=== PATIENT | female | born 1970 | race Caucasian/White ===

== ENCOUNTER 2022-05-16 16:28 | Inpatient (IN) | payer MEDICAID, SELFPAY ==
--- NOTE | ~2022-05-16 | US_ITS ---
EXAMINATION: US ABDOMEN COMPLETE CLINICAL INFORMATION: Cirrhosis. Question ascites.. COMPARISON: None TECHNIQUE: Real-time imaging of the abdominal viscera. Today's examination is limited secondary to overlying bowel gas. FINDINGS: PANCREAS: Visualized portions of the pancreas are normal in appearance. ABDOMINAL AORTA: The proximal portion of the abdominal aorta was not clearly visualized due to overlying bowel gas. The mid, and distal segments are normal in caliber. INFERIOR VENA CAVA: Visualized portions are normal. LIVER: The liver is enlarged. The liver contour is normal. Liver echogenicity is increased diffusely. No focal hepatic lesion. There is no intrahepatic biliary duct dilatation seen. GALLBLADDER: The gallbladder is physiologically distended. Some echogenic bile is noted. No definitive shadowing gallstones identified. No gallbladder wall thickening or pericholecystic fluid appreciated. Negative sonographic Gamble's sign. COMMON BILE DUCT: Normal in caliber measuring 0.4 cm in diameter. RIGHT KIDNEY: Normal. No hydronephrosis. No renal calculi or focal parenchymal lesions. The kidney measures 12.5 cm in maximum dimension. LEFT KIDNEY: Normal. No hydronephrosis. No renal calculi or focal parenchymal lesions. The kidney measures 12.4 cm in maximum dimension. SPLEEN: The spleen measures 13.7 cm in maximum dimension. FREE FLUID: None. US/US abdomen complete IMPRESSION: -Hepatosplenomegaly with diffusely increased echogenicity of the liver suggesting underlying liver disease. Correlation with liver enzymes recommended. -No ascites identified.
--- NOTE | ~2022-05-16 | XR_ITS ---
EXAMINATION: XR CHEST CLINICAL INFORMATION: Cough COMPARISON: None TECHNIQUE: Frontal view of the chest was obtained. FINDINGS: The lungs are clear. No airspace consolidation, pleural effusion, or pneumothorax. Subtle small symmetric nodular densities superimposing the right and left lower lungs are felt compatible with nipple shadows. The cardiomediastinal silhouette is within normal limits. No acute osseous injury. XR/XR chest 1V IMPRESSION: No acute pulmonary process.
[2022-05-16 17:15] VITALS: BP 141/86; PULSE 106; RESP 20; TEMP 37; O2SAT 96; BMI 24.3
--- NOTE | 2022-05-16 18:29 | PC.NURSE ---
Per english teacher pt requesting detox, Ernesto from CARE team speaking with pt in [place] at this time. Dispo pending
--- NOTE | 2022-05-16 18:37 | MHC.RECOVSUP ---
Recovery Support note: Patient is a 51 year old Ethiopian speaking female who presented to [facility] ED seeking detox. This appeals writer met with patient in the waiting room to discuss what to expect regarding medical clearance and detox referrals. Patient reports withdrawal symptoms at this time and states she hasn't eaten in 5 days. Gingerale and crackers provided to patient. Patient reports she has been to detox five times previously, [place] [facility] This appeals writer is available as needed.
[2022-05-16 22:56] VITALS: BP 136/78; PULSE 119; RESP 17; O2SAT 95
[2022-05-17 00:05] VITALS: BP 148/86; PULSE 102; RESP 18; TEMP 36.9; O2SAT 96
[2022-05-17 00:10] LABS: Basophils Percent Auto 0.6 % (0-2); Eosinophils Percent Auto 0.6 % (0-4); Hematocrit 37.3 % (37.0-47.0); Hemoglobin 12.9 g/dl (12.0-16.0); Imm Gran Abs Auto 0.01 X10*3/uL (0.00-0.03); Imm Gran Pct Auto 0.3 % (0.0-0.4); Lymphocytes Absolute Auto 1.2 X10*3/uL (1.2-4.9); Lymphocytes Percent Auto 33.7 % (20-40); Mean Corpuscular HGB Conc 34.6 g/dl (31.0-35.0); Mean Corpuscular Hemoglobin 34.2 pg (27.0-33.0); Mean Corpuscular Volume 98.9 fL (80.0-98.0); Mean Platelet Volume 10.2 fL (9.4-12.3); Monocytes Absolute Auto 0.4 X10*3/uL (0.1-1.2); Monocytes Percent Auto 10.6 % (2-11); Neutrophils Percent Auto 54.2 % (45-73); Platelet Count 52 X10*3/uL (160-400); Red Blood Count 3.77 X10*6/uL (4.20-5.50); Red Cell Distribution Width 12.4 % (11.0-16.0); White Blood Count 3.6 X10*3/uL (4.8-10.8)
[2022-05-17 00:11] LABS: MANUAL DIFF FLAG SCAN
[2022-05-17 00:16] LABS: INTERNATIONAL NORM RATIO 1.2 (0.9-1.1); Prothrombin Time 13.9 SEC (10.0-13.1)
[2022-05-17 00:27] LABS: Ethanol 60 mg/dL; SLIDE REVIEW VERIFIED
[2022-05-17 00:35] LABS: Alanine Aminotransferase 71 U/L (0-31); Albumin Level 4.6 g/dL (3.5-5.0); Alkaline Phosphatase 212 U/L (39-117); Anion Gap 25 (12-20); Aspartate Amino Transferase 214 U/L (5-31); Bilirubin Total 2.8 mg/dL (0.0-1.0); Blood Urea Nitrogen 6 mg/dL (9-16); Calcium 9.3 mg/dL (8.4-10.2); Carbon Dioxide 20 mmol/L (22-29); Chloride 94 mmol/L (96-108); Creatinine Clr Calc Pharmacy 113.1; Estimated Glomerular Filt Rate > 60; Glucose Random 101 mg/dL (60-115); Lipase 44 U/L (8-78); Potassium 3.7 mmol/L (3.3-5.1); Sodium 135 mmol/L (135-145); Total Protein 8.1 g/dL (6.5-8.0)
[2022-05-17] MEDS: 0.9 % Sodium Chloride 2,000 ML 999 ML IV (00:35)
--- NOTE | 2022-05-17 00:45 | ECG_ITS ---
Test Reason : ETOH WITHDRAWAL Blood Pressure : / mmHG Vent. Rate : 097 BPM Atrial Rate : 097 BPM P-R Int : 144 ms QRS Dur : 080 ms QT Int : 378 ms P-R-T Axes : 008 -23 -08 degrees QTc Int : 480 ms Normal sinus rhythm Septal infarct , age undetermined Abnormal ECG No previous ECGs available Referred By: Jennifer Narvaez Electronically Signed By:RONNA GARCIA
--- NOTE | 2022-05-17 01:20 | ED_ITS ---
HPI - Alcohol General Chief Complaint: ETOH/Substance Use Stated Complaint: Crisis Time Seen by Provider: 05/16/22 22:46 Source: patient Mode of arrival: ambulatory History of Present Illness HPI narrative: 51f with hx etoh dependence and p/w with request for etoh detox. Pt reports last alcoholic beverage was this morning and that she has had 5 days without much to eat and having non-bloody diarrhea. Otherwise, she denies SI/HI/SOB/chest pain,fevers, chills. Related Data Allergies Allergy/AdvReac Type Severity Reaction Status Date / Time Unable to Assess Allergy Verified 05/16/22 23:37 Review of Systems Review of Systems: Pertinent positives and negatives as per HPI and 10 pt ROS is otherwise negative. [facility] Past Medical History Source: nursing notes reviewed Medical History Alcohol abuse Anxiety Depression Hypertension Social History Social History Alcohol intake: current Alcohol intake frequency: 3 or more drinks per day Alcohol type: wine and hard liquor Patient Tobacco Use Status: Never used Tobacco Use of substances other than those prescribed or required for medical reasons: No Advance Directives: No Advance Directives Information Provided: No Physical Exam ED Vital Signs: Vital Signs - 24 hr 05/16/22 17:15 05/16/22 22:56 05/17/22 00:05 Temperature 98.6 F 98.4 F Pulse Rate 106 H 119 H 102 H Respiratory Rate 20 17 18 Blood Pressure 141/86 H 136/78 148/86 H Pulse Oximetry 96 95 96 Oxygen Delivery Method Room Air Room Air Room Air BMI result Body Mass Index 24.3 VS reviewed GEN: chronically ill, and appears older than age HEAD: NC/AT Neck: Supple PULM: CTAB, no w/r/r CVS: No JVD, S1S2, no murmur ABD: soft, non-tender, non-distended EXT: no deformities, fROM SKIN: warm, dry Neuro: A&O x4, strength 5/5 symmetrical, tremulous Course Course Course Narrative: 51F with history and clinical presentation c/w etoh withdrawal as well as etoh gastritis. Patient rec'd IVF, Zofran, placed on Phenobarb protocol, and all investigations reviewed and noted to be consistent with alcoholic liver. No clinical evidence to suggest gallbladder disease or cholecystitis. MDM - Alcohol Lab Data Result diagrams: 05/16/22 23:58 05/16/22 23:58 Labs: Lab Results 05/16/22 05/16/22 05/16/22 Range/Units 23:58 23:58 23:58 WBC 3.6 L (4.8-10.8) X10*3/uL RBC 3.77 L (4.20-5.50) X10*6/uL Hgb 12.9 (12.0-16.0) g/dl Hct 37.3 (37.0-47.0) % MCV 98.9 H (80.0-98.0) fL MCH 34.2 H (27.0-33.0) pg MCHC 34.6 (31.0-35.0) g/dl RDW 12.4 (11.0-16.0) % Plt Count 52 L (160-400) X10*3/uL MPV 10.2 (9.4-12.3) fL Immature Gran % (Auto) 0.3 (0.0-0.4) % Neut % (Auto) 54.2 (45-73) % Lymph % (Auto) 33.7 (20-40) % Freestone % (Auto) 10.6 (2-11) % Eos % (Auto) 0.6 (0-4) % Baso % (Auto) 0.6 (0-2) % Lymph # (Auto) 1.2 (1.2-4.9) X10*3/uL Freestone # (Auto) 0.4 (0.1-1.2) X10*3/uL Eos # (Auto) 0.0 (0.0-0.4) X10*3/uL Baso # (Auto) 0.0 (0.0-0.2) X10*3/uL Abs Immat Gran (auto) 0.01 (0.00-0.03) X10*3/uL Absolute Neuts (auto) 2.0 (2.0-8.3) x10*3/uL Absolute Nucleated RBC 0.000 (0.0-0.012) X10*3/uL Nucleated RBC % (auto) 0.0 (0.0-0.2) /100WBC Smear Tech's Comments VERIFIED PT 13.9 H (10.0-13.1) SEC INR 1.2 H (0.9-1.1) Sodium 135 (135-145) mmol/L Potassium 3.7 (3.3-5.1) mmol/L Chloride 94 L (96-108) mmol/L Carbon Dioxide 20 L (22-29) mmol/L Anion Gap 25 H (12-20) BUN 6 L (9-16) mg/dL Creatinine 0.60 (0.5-1.4) mg/dL Estim Creat Clear Calc 113.1 Estimated GFR > 60 Random Glucose 101 (60-115) mg/dL Calcium 9.3 (8.4-10.2) mg/dL Total Bilirubin 2.8 H (0.0-1.0) mg/dL AST 214 H (5-31) U/L ALT 71 H (0-31) U/L Alkaline Phosphatase 212 H (39-117) U/L Total Protein 8.1 H (6.5-8.0) g/dL Albumin 4.6 (3.5-5.0) g/dL Lipase 44 (8-78) U/L Ethyl Alcohol mg/dL 05/16/22 Range/Units 23:58 WBC (4.8-10.8) X10*3/uL RBC (4.20-5.50) X10*6/uL Hgb (12.0-16.0) g/dl Hct (37.0-47.0) % MCV (80.0-98.0) fL MCH (27.0-33.0) pg MCHC (31.0-35.0) g/dl RDW (11.0-16.0) % Plt Count (160-400) X10*3/uL MPV (9.4-12.3) fL Immature Gran % (Auto) (0.0-0.4) % Neut % (Auto) (45-73) % Lymph % (Auto) (20-40) % Freestone % (Auto) (2-11) % Eos % (Auto) (0-4) % Baso % (Auto) (0-2) % Lymph # (Auto) (1.2-4.9) X10*3/uL Freestone # (Auto) (0.1-1.2) X10*3/uL Eos # (Auto) (0.0-0.4) X10*3/uL Baso # (Auto) (0.0-0.2) X10*3/uL Abs Immat Gran (auto) (0.00-0.03) X10*3/uL Absolute Neuts (auto) (2.0-8.3) x10*3/uL Absolute Nucleated RBC (0.0-0.012) X10*3/uL Nucleated RBC % (auto) (0.0-0.2) /100WBC Smear Tech's Comments PT (10.0-13.1) SEC INR (0.9-1.1) Sodium (135-145) mmol/L Potassium (3.3-5.1) mmol/L Chloride (96-108) mmol/L Carbon Dioxide (22-29) mmol/L Anion Gap (12-20) BUN (9-16) mg/dL Creatinine (0.5-1.4) mg/dL Estim Creat Clear Calc Estimated GFR Random Glucose (60-115) mg/dL Calcium (8.4-10.2) mg/dL Total Bilirubin (0.0-1.0) mg/dL AST (5-31) U/L ALT (0-31) U/L Alkaline Phosphatase (39-117) U/L Total Protein (6.5-8.0) g/dL Albumin (3.5-5.0) g/dL Lipase (8-78) U/L Ethyl Alcohol 60 mg/dL ECG Data ECG #1: Attestation: I personally reviewed and interpreted this ECG as follows: Prior ECG tracings: not available for review Interpretation: NSR, HR-97, no STEMI, TN/QRS/QTc is wnl Discharge Plan Discharge Clinical Impression: Alcohol withdrawal syndrome, Alcoholic ketoacidosis, Dehydration, Hypertension Patient Disposition: Admitted As Inpatient
[2022-05-17] MEDS: Pantoprazole Sodium 40 MG/10 ML VIAL IVPUSH (01:34)
--- NOTE | 2022-05-17 01:36 | PC.NURSE ---
pt a&ox3, vss, CIWA = 17, provider notified, medicated per provider order, NaCl running.
[2022-05-17 01:55] LABS: Magnesium 1.5 mg/dL (1.6-2.6)
[2022-05-17 02:06] LABS: COVID-19 Test Negative (Negative); IDNOW Serial# 16C4AD1C
--- NOTE | 2022-05-17 02:11 | P.HPHOSP_ITS ---
History of Present Illness Date of Service: 05/17/22 Chief Complaint: Alcohol detox This is a 51-year-old female with pertinent history of essential hypertension, alcohol use disorder who presents to the emergency department for alcohol detox. Patient states she drinks 6 little bottles of vodka and about 6 glasses of wine every day. Her last drink was 15:00 on the day of presentation. States she now wants to quit and hence decided to come to the emergency department. Patient is complaining of bilateral hand tremors, nausea, sweating since her last drink. No visual or auditory hallucination. Does feel anxious. States she currently does not take any prescription medications. She was diagnosed with cirrhosis in the past and had an upper GI endoscopy done. States she was on a medication for blood pressure and variceal prophylaxis but discontinued. Her last hospitalization related to alcohol use disorder was about a month ago. Patient denies fever, chills, abdominal discomfort, bloody emesis, melena, chest pain, palpitations, shortness of breath, changes in urinary habits. does endorse nonb loody diarrhea. Review of Systems Review of Systems: All 13 review of systems are negative except as noted in [facility] Medical History Alcohol abuse Anxiety Depression Hypertension Social History Alcohol intake: current Alcohol intake frequency: 3 or more drinks per day Alcohol type: wine and hard liquor Patient Tobacco Use Status: Never used Tobacco Use of substances other than those prescribed or required for medical reasons: No Advance Directives: No Advance Directives Information Provided: No Meds Allergies Allergy/AdvReac Type Severity Reaction Status Date / Time Unable to Assess Allergy Verified 05/16/22 23:37 Active Medications: Current Medications Thiamine HCl 100 mg/ Sodium (Chloride) 101 mls @ 202 mls/hr IV DAILY LEORA Lactated Ringer's (Lr) 1,000 mls @ 150 mls/hr IV .[id number] ONE Stop: 05/17/22 08:48 Pharmacy Consult (Consult Rx Etoh Phenob Po Only) 1 each MISCELLANE ONCE PRN; Protocol PRN Reason: Consult order Pharmacy Consult (Consult Rx Perform Med Rec) 1 each MISCELLANE ONCE STA Stop: 05/17/22 01:50 Phenobarbital 200 mg/ (Phenobarbital 30 mg) 230 mg PO Q3H LEORA Stop: 05/17/22 07:16 Home Medications Medication Instructions Recorded Confirmed Last Taken Type acamprosate 333 mg tablet,delayed 2 tab PO TID 05/17/22 05/17/22 Unknown History release cholecalciferol (vitamin D3) 50 1 cap PO DAILY 05/17/22 05/17/22 Unknown History mcg (2,000 unit) capsule cyanocobalamin (vitamin B-12) 500 1 tab PO DAILY 05/17/22 05/17/22 Unknown His tory mcg tablet (Vitamin B-12) folic acid 400 mcg tablet 1 tab PO DAILY 05/17/22 05/17/22 Unknown History magnesium oxide 400 mg (241.3 mg 1 tab PO DAILY 05/17/22 05/17/22 Unknown History magnesium) tablet nadolol 40 mg tablet 1 tab PO DAILY 05/17/22 05/17/22 Unknown History thiamine HCl (vitamin B1) 100 mg 1 tab PO DAILY 05/17/22 05/17/22 Unknown History tablet Physical Exam Vital Signs and Narrative: Vital Signs: Last Vital Signs Temp 98.4 F 05/17/22 00:05 Pulse 102 H 05/17/22 00:05 Resp 18 05/17/22 00:05 BP 148/86 H 05/17/22 00:05 Pulse Ox 96 05/17/22 00:05 O2 Del Method 05/17/22 00:05 BMI result Body Mass Index 24.3 middle-aged female lying in bed anxious appearing Neck supple, no JVD tachycardic with regular rhythm, S1-S2 heard Regular breath sounds bilaterally, no wheezing or crackles appreciated Abdomen distended nontender, no guarding, no rigidity Patient is awake, alert and oriented to self, place, time and person ; no focal motor deficit ; bilateral hand tremors Psych: anxious No pedal edema Results Labs CBC and Chem 7: 05/17/22 03:21 05/17/22 03:21 Labs: Laboratory Results - last 24 hr 05/16/22 05/16/22 05/16/22 23:58 23:58 23:58 MCV 98.9 H MCH 34.2 H MCHC 34.6 RDW 12.4 Plt Count 52 L MPV 10.2 Immature Gran % (Auto) 0.3 Neut % (Auto) 54.2 Lymph % (Auto) 33.7 Gilchrist % (Auto) 10.6 Eos % (Auto) 0.6 Baso % (Auto) 0.6 Lymph # (Auto) 1.2 Gilchrist # (Auto) 0.4 Eos # (Auto) 0.0 Baso # (Auto) 0.0 Abs Immat Gran (auto) 0.01 Absolute Neuts (auto) 2.0 Absolute Nucleated RBC 0.000 Nucleated RBC % (auto) 0.0 Smear Tech's Comments VERIFIED PT 13.9 H INR 1.2 H Anion Gap 25 H Estim Creat Clear Calc 113.1 Estimated GFR > 60 Random Glucose 101 Calcium 9.3 Magnesium 1.5 L Total Bilirubin 2.8 H AST 214 H ALT 71 H Alkaline Phosphatase 212 H Total Protein 8.1 H Albumin 4.6 Lipase 44 Ethyl Alcohol COVID-19 ([facility]UNDIO) COVID-19 Clin Com 05/16/22 05/17/22 23:58 01:44 MCV MCH MCHC RDW Plt Count MPV Immature Gran % (Auto) Neut % (Auto) Lymph % (Auto) Gilchrist % (Auto) Eos % (Auto) Baso % (Auto) Lymph # (Auto) Gilchrist # (Auto) Eos # (Auto) Baso # (Auto) Abs Immat Gran (auto) Absolute Neuts (auto) Absolute Nucleated RBC Nucleated RBC % (auto) Smear Tech's Comments PT INR Anion Gap Estim Creat Clear Calc Estimated GFR Random Glucose Calcium Magnesium Total Bilirubin AST ALT Alkaline Phosphatase Total Protein Albumin Lipase Ethyl Alcohol 60 COVID-19 (ABUNDIO) Negative COVID-19 Clin Com See Note Imaging Radiologist's Impressions: Impressions Chest X-Ray 05/16/22 23:42 IMPRESSION: No acute pulmonary process. Assessment and Plan (1) Alcohol withdrawal syndrome: Status: Acute (2) Hypertension: Status: Acute (3) Cirrhosis: Status: Acute (4) Macrocytosis: Status: Acute (5) Thrombocytopenia: Status: Acute Plan This is a 51-year-old female with pertinent history of essential hypertension, alcohol use disorder who presents to the emergency department for alcohol detox. #. Alcohol use disorder #. Alcoholic cirrhosis -CIWA 17. Started on phenobarb protocol for concern for withdrawal. Initiating thiamine and obtain folic acid levels. Also obtaining ultrasound of the abdomen in a patient with history of cirrhosis and in the setting of elevated transaminases. Restart nadolol for gastroesophageal variceal hemorrhage prophylaxis. Hold diuretics and lactulose, patient needs IV crystalloid resuscitation and is currently having diarrhea. UA pending. #. Essential hypertension -initiated beta-val as above. #. Macrocytosis and thrmobocytopenia due to alcoholism and cirrhosis -monitor for bleeding #. Hypomagnesemia -due to GI losses. Repleted DVT prophylaxis: hold lovenox as platelets less than 100,000 Diet: Low salt diet Full code Patient will require two night minimum hospital stay for management of alcohol withdrawal Quality Stroke Does the patient have a stroke diagnosis?: No VTE Prior VTE?: No VTE Risk Level:: Medical - moderate - high VTE Device Contraindication: Treatment Not Indicated VTE Drug Contraindication: Treatment Not Indicated
--- NOTE | 2022-05-17 02:21 | PC.NURSE ---
med rec complete.
[2022-05-17] MEDS: Lactated Ringers 1,000 ML 150 ML IV (02:35)
[2022-05-17] MEDS: Thiamine HCL 100 MG in 0.9 % Sodium Chloride 100 ML 202 MG IV ×2 (02:38→09:03)
[2022-05-17 03:27] LABS: MANUAL DIFF FLAG NO
[2022-05-17 03:31] LABS: Basophils Percent Auto 0.6 % (0-2); Hematocrit 37.4 % (37.0-47.0); Hemoglobin 12.9 g/dl (12.0-16.0); Imm Gran Abs Auto 0.01 X10*3/uL (0.00-0.03); Imm Gran Pct Auto 0.3 % (0.0-0.4); Lymphocytes Absolute Auto 1.1 X10*3/uL (1.2-4.9); Lymphocytes Percent Auto 33.3 % (20-40); Mean Corpuscular HGB Conc 34.5 g/dl (31.0-35.0); Mean Corpuscular Hemoglobin 34.1 pg (27.0-33.0); Mean Corpuscular Volume 98.9 fL (80.0-98.0); Mean Platelet Volume 10.9 fL (9.4-12.3); Monocytes Absolute Auto 0.4 X10*3/uL (0.1-1.2); Monocytes Percent Auto 11.5 % (2-11); Neutrophils Absolute Auto 1.7 x10*3/uL (2.0-8.3); Neutrophils Percent Auto 54.3 % (45-73); Red Blood Count 3.78 X10*6/uL (4.20-5.50); Red Cell Distribution Width 12.3 % (11.0-16.0); White Blood Count 3.2 X10*3/uL (4.8-10.8)
[2022-05-17 03:32] LABS: Platelet Count 45 X10*3/uL (160-400)
[2022-05-17 03:38] LABS: VBG Base Excess 0.3 mmol/L; VBG HCO3 22 mmol/L (22-26); VBG pCO2 30 mmHg; VBG pH 7.47 (7.32-7.43); VBG pO2 60 mmHg
[2022-05-17 03:39] LABS: Venous Blood Gas Refer to POC result
[2022-05-17 03:39] LABS: Appearance Urine Turbid; Color Urine Dark Yellow; Glucose Urine UA Negative (Negative); Leukocyte Esterase Urine Moderate (2+) (Negative); Nitrite Urine Positive (Negative); PH 6.5 (5.0-9.0); UMIC TRIGGER UACC YES; Urine Blood Small (1+) (Negative); Urine Ketones 80 mg/dL (Negative); Urine Protein 100 (2+) mg/dL (Neg-Trace)
[2022-05-17 03:46] LABS: Bacteria Urine 4+ (None Seen); UACC Culture Trigger YES; WBC Urine >50 /HPF (0-5)
[2022-05-17 03:49] LABS: Amphetamine Screen Urine Not Detected (Not Detect); Barbiturates, Urine POSITIVE (Not Detect); Benzodiazepines Screen Urine Not Detected (Not Detect); Cannabinoid Screen Urine Not Detected (Not Detect); Cocaine Screen Urine Not Detected (Not Detect); Fentanyl, urine Not Detected (Not Detect); Opiate Screen Urine Not Detected (Not Detect); Phencyclidine Screen Urine Not Detected (Not Detect)
[2022-05-17 03:52] LABS: Anion Gap 21 (12-20); Blood Urea Nitrogen 5 mg/dL (9-16); Calcium 9.1 mg/dL (8.4-10.2); Carbon Dioxide 22 mmol/L (22-29); Chloride 96 mmol/L (96-108); Creatinine Clr Calc Pharmacy 106.1; Estimated Glomerular Filt Rate > 60; Glucose Random 105 mg/dL (60-115); Potassium 3.6 mmol/L (3.3-5.1); Sodium 135 mmol/L (135-145)
[2022-05-17] MEDS: PHENobarbitaL 200 MG, PHENobarbitaL 30 MG 230 MG PO ×2 (05:29→09:24)
[2022-05-17 06:56] LABS: Magnesium 1.4 mg/dL (1.6-2.6)
--- NOTE | 2022-05-17 08:41 | PHA.MEDREC ---
Pharmacy Consult ? Medication Reconciliation Pharmacy has completed the medication reconciliation. Completed by RN using list, reviewed by pharmacy Jayda Naidu
[2022-05-17] MEDS: Folic Acid 1 MG TABLET 0.5 MG PO (08:50)
[2022-05-17] MEDS: Magnesium Oxide 400 MG TABLET 800 MG PO ×2 (08:51→17:00)
[2022-05-17] MEDS: Cyanocobalamin (Vitamin B-12) 500 MCG TABLET PO (08:52)
[2022-05-17] MEDS: Cholecalciferol (Vitamin D3) 25 MCG TABLET 50 MCG PO (08:52)
[2022-05-17] MEDS: Acamprosate Calcium 333 MG TABLET.DR 666 MG PO ×3 (08:53→20:18)
[2022-05-17 09:00] VITALS: BP 140/86; PULSE 92; RESP 16; O2SAT 99
--- NOTE | 2022-05-17 12:58 | PC.NURSE ---
Pt V/S are stable. Pt came in from the ER and received reports from Er nurse Nae. Pt is a/o x4, pt is jittery, but no pparent od distress. will continue to monitor.
[2022-05-17 13:00] VITALS: BP 139/82; PULSE 67; RESP 20; TEMP 37; O2SAT 97
[2022-05-17] MEDS: 0.9 % Sodium Chloride Flush 3 ML SYRINGE IVFLUSH ×2 (13:03→23:43)
--- NOTE | 2022-05-17 14:18 | PM.EVENT ---
Event Note Date of Service: 05/17/22 Event Note: Patient already seen by hospitalist service this morning, seen and examined again denies any new complaint except tremors and feels anxious Physical exam: Unchanged from H&P note. Assess and plan: Coordinated in H&P note, in addition hypomagnesemia repleted -iv and po: will recheck rona
[2022-05-17] MEDS: Magnesium Sulfate/D5W 1 GM/100 ML PIGGYBACK IV (14:53)
[2022-05-17] MEDS: ondansetron HCL 4 MG/2 ML VIAL IVPUSH (15:06)
--- NOTE | 2022-05-17 15:34 | PC.NURSE ---
Pt appears restless, pt reports not experiecing pain at this moment. Pt was administer zofran for nausea. Pt CWA was [address] Cintron was notified.
[2022-05-17] MEDS: PHENobarbitaL sodium 130 MG/ML VIAL IM (16:55)
[2022-05-17 20:00] VITALS: BP 110/70; PULSE 74; RESP 16; TEMP 36.5; O2SAT 98
[2022-05-17] MEDS: PHENobarbitaL 15 MG TABLET 45 MG PO (20:18)
[2022-05-18] VITALS: BP 115/72; PULSE 76; RESP 16; TEMP 36.7; O2SAT 98
--- NOTE | 2022-05-18 04:25 | PC.NURSE ---
Patient is alert and oriented x3. VSS. Patient denies any pain at present. CIWA score 3. Patient uses bedside commode independently and is able to make her heeds known.
[2022-05-18 05:40] LABS: Folate 7.8 ng/mL (> or = 4.0)
[2022-05-18 07:19] LABS: Anion Gap 15 (12-20); Blood Urea Nitrogen 5 mg/dL (9-16); Calcium 9.3 mg/dL (8.4-10.2); Carbon Dioxide 26 mmol/L (22-29); Chloride 97 mmol/L (96-108); Creatinine Clr Calc Pharmacy 107.7; Estimated Glomerular Filt Rate > 60; Glucose Random 91 mg/dL (60-115); Magnesium 1.7 mg/dL (1.6-2.6); Potassium 3.9 mmol/L (3.3-5.1); Sodium 134 mmol/L (135-145)
[2022-05-18 07:24] LABS: Hematocrit 36.2 % (37.0-47.0); Hemoglobin 12.3 g/dl (12.0-16.0); Mean Corpuscular Hemoglobin 34.3 pg (27.0-33.0); Mean Corpuscular Volume 100.8 fL (80.0-98.0); Mean Platelet Volume 11.6 fL (9.4-12.3); Red Blood Count 3.59 X10*6/uL (4.20-5.50); Red Cell Distribution Width 11.9 % (11.0-16.0); White Blood Count 3.2 X10*3/uL (4.8-10.8)
[2022-05-18 07:25] LABS: Platelet Count 46 X10*3/uL (160-400)
[2022-05-18 08:09] LABS: Vitamin B12 450 pg/mL (200-900)
[2022-05-18 09:00] VITALS: BP 105/70; PULSE 83; RESP 14; TEMP 36.6; O2SAT 98
[2022-05-18] MEDS: Cholecalciferol (Vitamin D3) 25 MCG TABLET 50 MCG PO (09:51)
[2022-05-18] MEDS: Cyanocobalamin (Vitamin B-12) 500 MCG TABLET PO (09:51)
[2022-05-18] MEDS: Magnesium Oxide 400 MG TABLET 800 MG PO (09:51)
[2022-05-18] MEDS: PHENobarbitaL 15 MG TABLET 45 MG PO (09:51)
[2022-05-18] MEDS: Acamprosate Calcium 333 MG TABLET.DR 666 MG PO (09:52)
[2022-05-18] MEDS: Folic Acid 1 MG TABLET 0.5 MG PO (09:52)
--- NOTE | 2022-05-18 09:57 | MHC.CM.PN ---
PATIENT LIVES ALONE. CANE IN HOME FOR OCCASIONAL USE. NO VNA SHE HAS BEEN COVID VACCINATED X 2. SHE IS NOT SURE WHAT HER DC PLAN WILL BE BUT DOES MENTION NEEDING TO GET HER NEW CAR SHE HOPES TO DC TODAY AND WILL ARRANGE FOR TRANSPORT IF SO. SHE IS AWARE THAT RECOVERY TEAM CAN MEET WITH HER AGAIN. WILLING TO COMPLETE HCP NAMING HER FRIEND KENDELL ([phone]). CASE MANAGEMENT TO ASSIST.
[2022-05-18] MEDS: 0.9 % Sodium Chloride Flush 3 ML SYRINGE IVFLUSH (10:00)
--- NOTE | 2022-05-18 10:03 | PM.DS ---
DS: Providers Provider Date of Service: 05/18/22 Date of admission: 05/17/22 02:22 Primary care physician: Marino Goodson MD Consults: 05/17/22 14:21 Addiction Medicine Routine Consulting Provider: Karely Vallejo Reason for consultation: alcohol abuse Has provider been notified: No DS: Diagnosis Discharge Diagnosis (1) Alcohol withdrawal syndrome: Status: Acute (2) Cirrhosis: Status: Acute (3) Macrocytosis: Status: Acute (4) Thrombocytopenia: Status: Acute (5) Transaminitis: Status: Acute DS: Summary Hospital Course Hospital Course: 51-year-old female with pertinent history of essential hypertension, alcohol use disorder who presents to the emergency department for alcohol detox.? Patient states she drinks 6 little bottles of vodka and about 6 glasses of wine every day.? Her last drink was 15:00 on the day of presentation.? States she now wants to quit and hence decided to come to the emergency department.? Patient is? complaining of bilateral hand tremors, nausea, sweating since her last drink.? No visual or auditory hallucination.? Does feel anxious.? States she currently does not take any prescription medications.? She was diagnosed with cirrhosis in the past and had an upper GI endoscopy done.? States she was on a medication for blood pressure and variceal prophylaxis but discontinued.? Her last hospitalization related to alcohol use disorder was about a month ago.? Patient denies fever, chills, abdominal discomfort, bloody emesis, melena, chest pain, palpitations, shortness of breath, changes in urinary habits.? does endorse nonbloody diarrhea. Hospital course: Patient admitted for alcohol withdrawal-started on phenobarb protocol. Seems to be improved significantly. Hypomagnesemia repleted and resolved. Given limited magnesium supply. Monitor BMP and electrolytes outpatient. Macrocytosis with leukopenia and thrombocytopenia: When checked with the PCPs office decent Lab still has leukopenia and thrombocytopenia possible chronic: Patient need further workup outpatient with PCP. Currently denying any melena or any bruising or any new ashu bleeding. Follow-up CBC outpatient with PCP. htn -controlled , contiune home nadolol. transamnitis:elevated lft's and abd us:Hepatosplenomegaly with diffusely increased echogenicity of the liver suggesting underlying liver disease. above elevated lft's and abd us findings possible related alcohol use, possible cirrosis : Monitor LFTs and further management outpatient with PCP consider outpatient GI evaluation. plan: Follow-up with PCP with CBC and BMP and further management accordingly as per PCP. Consider outpatient hematology evaluation for thrombocytopenia and leukopenia. Patient was strongly advised to abstain from alcohol. Monitor CBC and BMP as above mentioned. Above management discussed with the patient in detail length she understand and in agreement with the above plan, time spent 50 minutes and 50% time spent on counseling. Significant findings: As above. Procedures performed: None. Treatment and response: As above. Complications: None. Time Spent with Patient Time attestation: Total time spent providing and/or coordinating discharge services: Discharge coordination time: Greater than 30 minutes Quality: Safe Use of Opioids Does Pt have an Active Cancer Diagnosis on the Problem List?: No Quality: Stroke Does the patient have a stroke diagnosis?: No Physical Exam Vital Signs: Vital Signs: Last Vital Signs Temp 97.8 F 05/18/22 09:00 Pulse 83 05/18/22 09:00 Resp 14 05/18/22 09:00 BP 105/70 05/18/22 09:00 Pulse Ox 98 05/18/22 09:00 O2 Del Method 05/18/22 09:00 BMI result Body Mass Index 24.3 Appearance: Alert.? Oriented X3.? not in distress.? cvs: rrr, [id number] , no murmur res: clear to auscultation ,no rhonchii or wheezing abd: no rebound or guarding ,nt, bs present. ext pulses present , no cyanosis . neuro: axo3 , nonfocal. DS: Data Data Completed and Pending Labs on day of discharge: Laboratory Results - last 24 hr 05/17/22 05/18/22 05/18/22 03:21 06:29 06:29 WBC RBC Hgb Hct MCV MCH MCHC RDW Plt Count MPV Absolute Nucleated RBC Nucleated RBC % (auto) Sodium 134 L Potassium 3.9 Chloride 97 Carbon Dioxide 26 Anion Gap 15 BUN 5 L Creatinine 0.63 Estim Creat Clear Calc 107.7 Estimated GFR > 60 Random Glucose 91 Calcium 9.3 Magnesium 1.7 Vitamin B12 450 Folate 7.8 05/18/22 06:29 WBC 3.2 L RBC 3.59 L Hgb 12.3 Hct 36.2 L MCV 100.8 H MCH 34.3 H MCHC 34.0 RDW 11.9 Plt Count 46 L MPV 11.6 Absolute Nucleated RBC 0.000 Nucleated RBC % (auto) 0.0 Sodium Potassium Chloride Carbon Dioxide Anion Gap BUN Creatinine Estim Creat Clear Calc Estimated GFR Random Glucose Calcium Magnesium Vitamin B12 Folate Additional Comments Additional comments: US/US abdomen complete IMPRESSION: -Hepatosplenomegaly with diffusely increased echogenicity of the liver suggesting underlying liver disease. Correlation with liver enzymes recommended. -No ascites identified. Discharge Plan Discharge Anticipated Discharge Date/Time: 05/18/22 15:56 Patient Disposition: Home, Self-Care Discharge Diagnosis: alcohol withdrawal,chronic leucopenia/thromocytopenia Referrals: Marino Goodson MD [Primary Care Provider] - 1 Week Discharge Medications: New magnesium oxide 400 mg magnesium capsule 400 mg PO BID Qty: 10 0RF Continued magnesium oxide 400 mg (241.3 mg magnesium) tablet 1 tab PO DAILY cyanocobalamin (vitamin B-12) [Vitamin B-12] 500 mcg tablet 1 tab PO DAILY nadolol 40 mg tablet 1 tab PO DAILY cholecalciferol (vitamin D3) 50 mcg (2,000 unit) capsule 1 cap PO DAILY No Action mirtazapine 7.5 mg tablet 7.5 mg PO BEDTIME Qty: 14 0RF acamprosate 333 mg tablet,delayed release (DR/EC) 666 mg PO TID Qty: 180 0RF thiamine HCl (vitamin B1) 100 mg tablet 100 mg PO DAILY Qty: 30 0RF folic acid 400 mcg tablet 0.4 mg PO DAILY Qty: 30 0RF Discharge Orders: Discharge Order (Routine); Ordered 05/18/22 Ordered By: Marlen Benoit Diet: Advance to usual diet Activity on Discharge: As tolerated Stand Alone Forms: Patient Portal Discharge page Other Ambulatory Orders: Basic Metabolic Panel Fasting (Routine) Timeframe: 1 Week Facility: [facility] - Location: Laboratory Ordered By: Marlen Benoit Complete Blood Count no Diff (Routine) Timeframe: 1 Week Facility: [facility] - Location: Laboratory Ordered By: Marlen Benoit Liver Panel (Routine) Timeframe: 1 Week Facility: [facility] - Location: Laboratory Ordered By: Marlen Benoit Care Plan Goals: Patient admitted for alcohol withdrawal-started on phenobarb protocol. Seems to be improved significantly. Hypomagnesemia repleted and resolved. Given limited magnesium supply. Monitor BMP and electrolytes outpatient. Macrocytosis with leukopenia and thrombocytopenia: When checked with the PCPs office decent Lab still has leukopenia and thrombocytopenia possible chronic: Patient need further workup outpatient with PCP. Currently denying any melena or any bruising or any new ashu bleeding. above elevated lft's and abd us findings possible related alcohol use/cirrosis : Monitor LFTs and further management outpatient with PCP consider outpatient GI evaluation. Follow-up CBC outpatient with PCP. Health Concerns: Patient was strongly advised to abstain from alcohol. Monitor CBC and BMP ,liver panel as above mentioned. Plan of Treatment: Follow-up with PCP with CBC, liver panel,and BMP and further management accordingly as per PCP. Consider outpatient hematology evaluation for thrombocytopenia and leukopenia. Assessment: As above. Discharge Date/Time: 05/18/22 13:05
[2022-05-18 10:25] LABS: Alanine Aminotransferase 53 U/L (0-31); Albumin Level 3.9 g/dL (3.5-5.0); Alkaline Phosphatase 163 U/L (39-117); Aspartate Amino Transferase 140 U/L (5-31); Bilirubin Direct 1.6 mg/dL (0.0-0.5); Bilirubin Total 3.4 mg/dL (0.0-1.0); Total Protein 6.8 g/dL (6.5-8.0)
--- NOTE | 2022-05-18 11:53 | MHC.RECOVRN ---
T/W met w/ pt, pt alert, oriented, sitting up in bed. Pt states has been drinking 10-12 drinks daily, with some periods of decreased/no use for 1-2 weeks in between for some time. Pt states since August 2021 has been stuck in a cycle and reports detox 6 times. Pt states in the past had [facility], who pt found helpful. Pt reports attended [facility] meetings regularly which found helpful. Pt states change in attending meetings with Covid. Pt states interested in making a change, currently has psychiatrist at [facility] and is seeing a therapist. T/W and pt reviewed recovery supports. MAT Intake appt scheduled 05/20/22 @ 9am at [facility]. Pt given resource packet and appt card.
== END 2022-05-18 13:05 | disposition home or self-care (01) | DRG 280 ==
LOC: HO.ED 05-17 01:40 → HO.EDOVER 05-17 03:03
PROVIDERS: Student in an Organized Health Care Education/Training Program; Admitting Provider Internal Medicine; Emergency Provider Student in an Organized Health Care Education/Training Program; PCP Internal Medicine; Visit Provider Internal Medicine
DX: K70.30 Alcoholic cirrhosis of liver without ascites (principal); D69.59 Other secondary thrombocytopenia; D75.89 Other specified diseases of blood and blood-forming organs; E83.42 Hypomagnesemia; F10.239 Alcohol dependence with withdrawal, unspecified; F41.9 Anxiety disorder, unspecified; D72.819 Decreased white blood cell count, unspecified; F32.A Depression, unspecified; I10 Essential (primary) hypertension; Z20.822 Contact with and (suspected) exposure to COVID-19; Z79.899 Other long term (current) drug therapy
CPT/HCPCS: 36415; 71045; 76700; 80048; 80053; 80076; 80307; 81001; 82077; 82607; 82746; 82803; 83690; 83735; 85025; 85027; 85610; 87086; 87635; 93005; 96360; 99285; J2405; J2560; J3411; J3475

== ENCOUNTER → 2022-05-20 08:54 | Outpatient (BNVA) | payer MEDICAID, SELFPAY | PROVIDERS: PCP Internal Medicine; Visit Provider Nurse Practitioner Psychiatric/Mental Health | DX: Z51.81 Encounter for therapeutic drug level monitoring (principal); F10.20 Alcohol dependence, uncomplicated | CPT/HCPCS: 99212 ==

== ENCOUNTER → 2022-06-03 08:50 | Outpatient (BNVA) | payer MEDICAID, SELFPAY | PROVIDERS: PCP Internal Medicine; Visit Provider Nurse Practitioner Psychiatric/Mental Health | DX: F10.20 Alcohol dependence, uncomplicated (principal); Z51.81 Encounter for therapeutic drug level monitoring; Z79.899 Other long term (current) drug therapy | CPT/HCPCS: 99212 ==

== ENCOUNTER → 2022-06-16 09:07 | Outpatient (BNVA) | payer MEDICAID, SELFPAY | PROVIDERS: PCP Internal Medicine; Visit Provider Nurse Practitioner Psychiatric/Mental Health | DX: F10.20 Alcohol dependence, uncomplicated (principal) | CPT/HCPCS: 99212 ==

== ENCOUNTER → 2022-07-29 11:28 | Outpatient (BNVA) | payer MEDICAID, SELFPAY | PROVIDERS: PCP Internal Medicine; Visit Provider Nurse Practitioner Psychiatric/Mental Health | DX: F10.20 Alcohol dependence, uncomplicated (principal) | CPT/HCPCS: 99212 ==

== ENCOUNTER 2022-08-07 18:15 | Inpatient (IN) | payer MEDICAID, SELFPAY ==
--- NOTE | ~2022-08-07 | XR_ITS ---
EXAMINATION: XR CHEST CLINICAL INFORMATION: Cough. COMPARISON: Chest x-ray 05/16/2022 TECHNIQUE: Frontal view of the chest was obtained. 2020 hours FINDINGS: No significant abnormality is noted involving the heart, lungs, mediastinum, bony thorax or soft tissues. XR/XR chest 1V IMPRESSION: Unremarkable examination.
[2022-08-07 19:28] VITALS: BP 132/79; PULSE 117; RESP 18; TEMP 36.8; O2SAT 95; BMI 26.6
--- NOTE | 2022-08-07 19:29 | ED_ITS ---
HPI - General Adult General Chief complaint: Weakness <YASMINE Laughlin - Last Filed: 08/07/22 19:32> Stated complaint: pain in hands and feet,unable to eat x5days <YASMINE Laughlin - Last Filed: 08/07/22 19:32> Time Seen by Provider: 08/07/22 21:32 <YASMINE Laughlin - Last Filed: 08/07/22 19:32> Source: patient <Sandie Higuera MD - Last Filed: 08/08/22 00:32> Mode of arrival: wheelchair <Sandie Higuera MD - Last Filed: 08/08/22 00:32> Limitations: no limitations <Sandie Higuera MD - Last Filed: 08/08/22 00:32> History of Present Illness HPI narrative: Patient comes to the emergency room by private vehicle. Patient's neighbor drove her to the hospital, patient states that approximately 1 month ago, she relapsed and is drinking alcohol again. Patient states that after she was discharged from this hospital, she was doing very well, going to the gym, completely stop drinking alcohol. Then, she had COVID, stop taking all her medications and relapsed. Patient states that for the last 5 days, patient has been having a lot of diarrhea, feeling very weak, keeps drinking alcohol. Patient states that she is so weak that she can not even make it on type to the bathroom and occasionally has accidents, and has been using depends in the last week. Patient states that she has been seeing blood in her depends in the last few days, but thinks he is mostly secondary to the skin abrasions in her buttocks from sitting long in her own urine and diarrhea. <Sandie Higuera MD - Last Filed: 08/08/22 00:32> Related Data Home medications: Home Medications Medication Instructions Recorded Confirmed cholecalciferol (vitamin D3) 50 1 cap PO DAILY 05/17/22 08/07/22 mcg (2,000 unit) capsule cyanocobalamin (vitamin B-12) 500 1 tab PO DAILY 05/17/22 08/07/22 mcg tablet (Vitamin B-12) magnesium oxide 400 mg (241.3 mg 1 tab PO DAILY 05/17/22 08/07/22 magnesium) tablet nadolol 20 mg tablet 20 mg PO DAILY 08/07/22 08/07/22 Previous Rx's Medication Instructions Recorded acamprosate 333 mg tablet,delayed 666 mg PO TID #180 tabs 05/20/22 release thiamine HCl (vitamin B1) 100 mg 100 mg PO DAILY #30 tabs 05/20/22 tablet folic acid 1 mg tablet 1 mg PO DAILY #30 tabs 06/03/22 mirtazapine 7.5 mg tablet 7.5 mg PO BEDTIME #30 tabs 06/03/22 <YASMINE Laughlin - Last Filed: 08/07/22 19:32> Allergies/adverse reactions: Allergies Allergy/AdvReac Type Severity Reaction Status Date / Time Unable to Assess Allergy Verified 07/29/22 11:37 <YASMINE Laughlin - Last Filed: 08/07/22 19:32> Review of Systems Review of Systems: Constitutional : No Weight loss, No Fever, No Chills, No Night Sweats, complaining weakness ENT/Mouth : No Hearing loss, No Ear Pain, No Nasal Congestion, No Sinus Pain, No Hoarseness, No sore throat, No Rhinorrhea, No Swallowing Difficulty Eyes: No Eye Pain, No Swelling, No Redness, No Foreign Body, No Discharge, No Vision Changes Cardiovascular : No Chest Pain, No SOB, No Dyspnea on Exertion, No Orthopnea, No Edema, No Palpitations Respiratory : No Cough, No Sputum, No Wheezing, No Smoke Exposure, No Dyspnea Gastrointestinal : Complaining of nausea, mild vomiting, significant diarrhea No Constipation, No abdominal Pain, No Hematochezia, No Melena Genitourinary : no irregular bleeding, No Dysuria, No Urinary Frequency, No Hematuria, No Urinary Incontinence, No Urgency, No Flank Pain, No Urinary Flow Changes, No Hesitancy Musculoskeletal : No joint pain, No Myalgias, No Joint Swelling Skin : No Skin Lesions, No rash Neuro : No Weakness, No Numbness, No Paresthesias, No Loss of Consciousness, No Dizziness, No Headache Psych : No Anxiety/Panic, No Depression, No SI/HI/AH/VH, No Social Issues, Heme/Lymph: No Bruising, No Bleeding,No Lymphadenopathy Endocrine : No Polyuria, No Polydipsia, No Temperature Intolerance <Sandie Higuera MD - Last Filed: 08/08/22 00:32> [facility] Past Medical History Medical History: Medical History Alcohol abuse Alcoholic ketoacidosis Anxiety Dehydration Depression Hypertension Hypertension <YASMINE Laughlin - Last Filed: 08/07/22 19:32> Social History Social History: Social History Alcohol intake: current Alcohol intake frequency: 3 or more drinks per day Alcohol type: hard liquor Patient Tobacco Use Status: Never used Tobacco Smoked in Last 30 Days: No Use of substances other than those prescribed or required for medical reasons: No Advance Directives: Yes Advance Directives on File: Yes Advance Directives Date on File: 05/18/22 Patient : No service: No Current occupational status: employed <YASMINE Laughlin - Last Filed: 08/07/22 19:32> Physical Exam ED Vital Signs: Vital Signs - 24 hr 08/07/22 19:28 08/07/22 22:40 Temperature 98.2 F 98.5 F Pulse Rate 117 H 97 Respiratory Rate 18 Blood Pressure 132/79 130/83 Pulse Oximetry 95 95 Oxygen Delivery Method Room Air Room Air BMI result Body Mass Index 26.6 <YASMINE Laughlin - Last Filed: 08/07/22 19:32> Vital Signs - 24 hr 08/07/22 19:28 08/07/22 22:40 Temperature 98.2 F 98.5 F Pulse Rate 117 H 97 Respiratory Rate 18 Blood Pressure 132/79 130/83 Pulse Oximetry 95 95 Oxygen Delivery Method Room Air Room Air BMI result Body Mass Index 26.6 <Sandie Higuera MD - Last Filed: 08/08/22 00:32> Const Other: Appearance: Alert. Oriented X3. No acute distress. Weak, has trouble walking due to weakness Eyes: Pupils equal, round and reactive to light. ENT: Pharynx normal. Neck: Normal inspection. Neck supple. No lymph nodes noted. No crepitus CVS: Normal heart rate and rhythm. Pulses normal. Normal S1 and S2 Respiratory: No respiratory distress. Breath sounds normal. No Wheezing. No rales Abdomen: Soft and nontender. No rigidity. No distention. Skin: Patient has stage II pressure ulcers in the buttocks, bleeding Extremities: No lower extremity edema. No Lacerations. No Rash Neuro: Oriented X 3. CN 2 through 12 grossly intact Psych: calm, cooperative, normal affect <Sandie Higuera MD - Last Filed: 08/08/22 00:32> Course Course Course Narrative: RME- 19:30PM - 51yoF c PMHx of alcohol dependent, HTN who is presenting to the ER with complaints of decreased appetite for the past 5 days with associated N/V and numbness/tingling to bilateral hands/feet. Reports she does not believe she has ever had a withdrawal seizure. Reports that she drank some alcohol prior to arrival when her friend dropped her off because she does not want to going to a seizure. Also reports coughing with sputum production. Denies fevers, sore throat, CP/SOB, abd pain , back pain, dysuria, rashes, recent falls or trauma or any other symptoms complaints or concerns at this time. Reports she was seen here in the past and given IV with IV fluids and some medications and that helped her symptoms. Patient is interested in detox. Plan: Labs, COVID/RSV/flu swab, UA. Patient will be sent back to the waiting room to be evaluated in the ED. <YASMINE Laughlin - Last Filed: 08/07/22 19:32> RME- 19:30PM - 51yoF c PMHx of alcohol dependent, HTN who is presenting to the ER with complaints of decreased appetite for the past 5 days with associated N/V and numbness/tingling to bilateral hands/feet. Reports she does not believe she has ever had a withdrawal seizure. Reports that she drank some alcohol prior to arrival when her friend dropped her off because she does not want to going to a seizure. Also reports coughing with sputum production. Denies fevers, sore throat, CP/SOB, abd pain , back pain, dysuria, rashes, recent falls or trauma or any other symptoms complaints or concerns at this time. Reports she was seen here in the past and given IV with IV fluids and some medications and that helped her symptoms. Patient is interested in detox. Plan: Labs, COVID/RSV/flu swab, UA. Patient will be sent back to the waiting room to be evaluated in the ED. Patient has a mild UTI, patient given ceftriaxone. Patient is too weak to be able to walk, unable to reach the bathroom on time due to weakness. <Sandie Higuera MD - Last Filed: 08/08/22 00:32> Medications Administered Discontinued Medications Generic Name Dose Route Start Last Admin Trade Name Leah PRN Reason Stop Dose Admin Folic Acid 1 mg 08/07/22 22:02 08/07/22 22:07 Folic Acid 1 Mg Tablet PO 08/07/22 22:03 1 mg ONCE ONE Administration Sodium Chloride 1,000 mls @ 999 mls/hr 08/07/22 21:53 08/07/22 22:06 Ns IVCONT 08/07/22 22:53 999 mls/hr .Q1H1M ONE Administration Thiamine HCl 100 mg/ Sodium 101 mls @ 202 mls/hr 08/07/22 21:53 08/07/22 22:49 Chloride IV 08/07/22 22:22 Infused ONCE ONE Infusion Loperamide HCl 4 mg 08/07/22 22:04 08/07/22 22:07 Loperamide Hcl 2 Mg Capsule PO 08/07/22 22:05 4 mg ONCE ONE Administration Multi-Ingred Cream/Lotion/Oil/Oint 1 appl 08/07/22 22:07 08/07/22 23:11 Mineral Oil/Petrolatum,White 106 Gm Tube TOPICAL 08/07/22 22:08 1 appl ONCE ONE Administration Protocol Phenobarbital Sodium 306 mg 08/07/22 22:15 08/07/22 22:25 Phenobarbital Sodium 130 Mg/Ml Im Once IM 08/07/22 22:16 306 mg ONCE ONE Administration <YASMINE Laughlin - Last Filed: 08/07/22 19:32> Medications Administered Discontinued Medications Generic Name Dose Route Start Last Admin Trade Name Leah PRN Reason Stop Dose Admin Folic Acid 1 mg 08/07/22 22:02 08/07/22 22:07 Folic Acid 1 Mg Tablet PO 08/07/22 22:03 1 mg ONCE ONE Administration Sodium Chloride 1,000 mls @ 999 mls/hr 08/07/22 21:53 08/07/22 22:06 Ns IVCONT 08/07/22 22:53 999 mls/hr .Q1H1M ONE Administration Thiamine HCl 100 mg/ Sodium 101 mls @ 202 mls/hr 08/07/22 21:53 08/07/22 22:49 Chloride IV 08/07/22 22:22 Infused ONCE ONE Infusion Loperamide HCl 4 mg 08/07/22 22:04 08/07/22 22:07 Loperamide Hcl 2 Mg Capsule PO 08/07/22 22:05 4 mg ONCE ONE Administration Multi-Ingred Cream/Lotion/Oil/Oint 1 appl 08/07/22 22:07 08/07/22 23:11 Mineral Oil/Petrolatum,White 106 Gm Tube TOPICAL 08/07/22 22:08 1 appl ONCE ONE Administration Protocol Phenobarbital Sodium 306 mg 08/07/22 22:15 08/07/22 22:25 Phenobarbital Sodium 130 Mg/Ml Im Once IM 08/07/22 22:16 306 mg ONCE ONE Administration <Sandie Higuera MD - Last Filed: 08/08/22 00:32> Medical Decision Making Differential Diagnosis Differential Diagnoses: The differential diagnosis associated with the presentation includes (UTI, alcohol intoxication, viral illness) <Sandie Higuera MD - Last Filed: 08/08/22 00:32> Admission/Observation Consideration of admission/observation: Escalation of care including admission/observation considered (Initially, Case Management was considered along with care team consult. However, patient is too weak to even stand up to the bathroom/commode on her own. Patient has a UTI. Patient is significantly symptomatic) <Sandie Higuera MD - Last Filed: 08/08/22 00:32> Consult Healthcare Provider Management of the patient was discussed with: Hospitalist (I discussed the patient with Dr. Jones, patient being admitted) <Sandie Higuera MD - Last Filed: 08/08/22 00:32> Lab Data MDM Lab Attestation statement: I reviewed the patient's lab results. <Sandie Higuera MD - Last Filed: 08/08/22 00:32> Result Diagrams: : 08/07/22 19:47 08/07/22 19:47 <YASMINE Laughlin - Last Filed: 08/07/22 19:32> Labs: Lab Results 08/07/22 08/07/22 08/07/22 Range/Units 19:35 19:47 19:47 WBC 4.6 L (4.8-10.8) X10*3/uL RBC 4.12 L (4.20-5.50) X10*6/uL Hgb 13.5 (12.0-16.0) g/dl Hct 40.4 (37.0-47.0) % MCV 98.1 H (80.0-98.0) fL MCH 32.8 (27.0-33.0) pg MCHC 33.4 (31.0-35.0) g/dl RDW 12.6 (11.0-16.0) % Plt Count 47 L (160-400) X10*3/uL MPV 10.9 (9.4-12.3) fL Immature Gran % (Auto) 0.2 (0.0-0.4) % Neut % (Auto) 76.3 H (45-73) % Lymph % (Auto) 14.5 L (20-40) % [place] % (Auto) 7.1 (2-11) % Eos % (Auto) 1.3 (0-4) % Baso % (Auto) 0.6 (0-2) % Lymph # (Auto) 0.7 L (1.2-4.9) X10*3/uL [place] # (Auto) 0.3 (0.1-1.2) X10*3/uL Eos # (Auto) 0.1 (0.0-0.4) X10*3/uL Baso # (Auto) 0.0 (0.0-0.2) X10*3/uL Abs Immat Gran (auto) 0.01 (0.00-0.03) X10*3/uL Absolute Neuts (auto) 3.5 (2.0-8.3) x10*3/uL Absolute Nucleated RBC 0.000 (0.0-0.012) X10*3/uL Nucleated RBC % (auto) 0.0 (0.0-0.2) /100WBC Smear Tech's Comments VERIFIED PT 14.3 H (10.0-13.1) SEC INR 1.2 H (0.9-1.1) Sodium (135-145) mmol/L Potassium (3.3-5.1) mmol/L Chloride (96-108) mmol/L Carbon Dioxide (22-29) mmol/L Anion Gap (12-20) BUN (9-16) mg/dL Creatinine (0.5-1.4) mg/dL Estim Creat Clear Calc Estimated GFR Random Glucose (60-115) mg/dL Calcium (8.4-10.2) mg/dL Magnesium (1.6-2.6) mg/dL Total Bilirubin (0.0-1.0) mg/dL AST (5-31) U/L ALT (0-31) U/L Alkaline Phosphatase (39-117) U/L Total Protein (6.5-8.0) g/dL Albumin (3.5-5.0) g/dL Lipase (8-78) U/L Urine Color Urine Appearance Urine pH (5.0-9.0) Ur Specific [place] (1.005-1.025) Urine Protein (Neg-Trace) mg/dL Urine Glucose (UA) (Negative) mg/dL Urine Ketones (Negative) mg/dL Urine Blood (Negative) Urine Nitrite (Negative) Ur Leukocyte Esterase (Negative) Urine RBC (0-2) /HPF Urine WBC (0-5) /HPF Ur Squamous Epith Cells (0-2) /HPF Urine Bacteria (None Seen) Hyaline Casts (0-2) /LPF Stool Occult Blood (NEGATIVE) Urine Opiates Screen (Not Detect) Urine Fentanyl Screen (Not Detect) Ur Barbiturates Screen (Not Detect) Ur Phencyclidine Scrn (Not Detect) Ur Amphetamines Screen (Not Detect) U Benzodiazepines Scrn (Not Detect) Urine Cocaine Screen (Not Detect) U Marijuana (THC) Screen (Not Detect) Ethyl Alcohol mg/dL Influenza Type A (PCR) NEGATIVE (Negative) Influenza Type B (PCR) NEGATIVE (Negative) RSV RNA Qual (PCR) NEGATIVE (Negative) SARS-CoV-2 RNA (RT-PCR) NEGATIVE (Negative) 08/07/22 08/07/22 08/07/22 Range/Units 19:47 21:51 23:17 WBC (4.8-10.8) X10*3/uL RBC (4.20-5.50) X10*6/uL Hgb (12.0-16.0) g/dl Hct (37.0-47.0) % MCV (80.0-98.0) fL MCH (27.0-33.0) pg MCHC (31.0-35.0) g/dl RDW (11.0-16.0) % Plt Count (160-400) X10*3/uL MPV (9.4-12.3) fL Immature Gran % (Auto) (0.0-0.4) % Neut % (Auto) (45-73) % Lymph % (Auto) (20-40) % [place] % (Auto) (2-11) % Eos % (Auto) (0-4) % Baso % (Auto) (0-2) % Lymph # (Auto) (1.2-4.9) X10*3/uL [place] # (Auto) (0.1-1.2) X10*3/uL Eos # (Auto) (0.0-0.4) X10*3/uL Baso # (Auto) (0.0-0.2) X10*3/uL Abs Immat Gran (auto) (0.00-0.03) X10*3/uL Absolute Neuts (auto) (2.0-8.3) x10*3/uL Absolute Nucleated RBC (0.0-0.012) X10*3/uL Nucleated RBC % (auto) (0.0-0.2) /100WBC Smear Tech's Comments PT (10.0-13.1) SEC INR (0.9-1.1) Sodium 134 L (135-145) mmol/L Potassium 4.4 (3.3-5.1) mmol/L Chloride 94 L (96-108) mmol/L Carbon Dioxide 15 L (22-29) mmol/L Anion Gap 29 H (12-20) BUN 6 L (9-16) mg/dL Creatinine 0.52 (0.5-1.4) mg/dL Estim Creat Clear Calc 143.1 Estimated GFR > 60 Random Glucose 107 (60-115) mg/dL Calcium 9.4 (8.4-10.2) mg/dL Magnesium 1.7 (1.6-2.6) mg/dL Total Bilirubin 3.5 H (0.0-1.0) mg/dL AST 134 H (5-31) U/L ALT 55 H (0-31) U/L Alkaline Phosphatase 171 H (39-117) U/L Total Protein 8.6 H (6.5-8.0) g/dL Albumin 4.8 (3.5-5.0) g/dL Lipase 12 (8-78) U/L Urine Color Dark Yellow Urine Appearance Cloudy Urine pH 5.5 (5.0-9.0) Ur Specific [place] 1.020 (1.005-1.025) Urine Protein 100 (2+) H (Neg-Trace) mg/dL Urine Glucose (UA) Negative (Negative) mg/dL Urine Ketones >=160 (Negative) mg/dL Urine Blood Moderate (2+) H (Negative) Urine Nitrite Negative (Negative) Ur Leukocyte Esterase Trace H (Negative) Urine RBC 11-20 H (0-2) /HPF Urine WBC 0-5 (0-5) /HPF Ur Squamous Epith Cells 11-20 (0-2) /HPF Urine Bacteria 1+ (None Seen) Hyaline Casts 0-2 (0-2) /LPF Stool Occult Blood NEGATIVE (NEGATIVE) Urine Opiates Screen (Not Detect) Urine Fentanyl Screen (Not Detect) Ur Barbiturates Screen (Not Detect) Ur Phencyclidine Scrn (Not Detect) Ur Amphetamines Screen (Not Detect) U Benzodiazepines Scrn (Not Detect) Urine Cocaine Screen (Not Detect) U Marijuana (THC) Screen (Not Detect) Ethyl Alcohol 202 mg/dL Influenza Type A (PCR) (Negative) Influenza Type B (PCR) (Negative) RSV RNA Qual (PCR) (Negative) SARS-CoV-2 RNA (RT-PCR) (Negative) 08/07/22 Range/Units 23:17 WBC (4.8-10.8) X10*3/uL RBC (4.20-5.50) X10*6/uL Hgb (12.0-16.0) g/dl Hct (37.0-47.0) % MCV (80.0-98.0) fL MCH (27.0-33.0) pg MCHC (31.0-35.0) g/dl RDW (11.0-16.0) % Plt Count (160-400) X10*3/uL MPV (9.4-12.3) fL Immature Gran % (Auto) (0.0-0.4) % Neut % (Auto) (45-73) % Lymph % (Auto) (20-40) % [place] % (Auto) (2-11) % Eos % (Auto) (0-4) % Baso % (Auto) (0-2) % Lymph # (Auto) (1.2-4.9) X10*3/uL [place] # (Auto) (0.1-1.2) X10*3/uL Eos # (Auto) (0.0-0.4) X10*3/uL Baso # (Auto) (0.0-0.2) X10*3/uL Abs Immat Gran (auto) (0.00-0.03) X10*3/uL Absolute Neuts (auto) (2.0-8.3) x10*3/uL Absolute Nucleated RBC (0.0-0.012) X10*3/uL Nucleated RBC % (auto) (0.0-0.2) /100WBC Smear Tech's Comments PT (10.0-13.1) SEC INR (0.9-1.1) Sodium (135-145) mmol/L Potassium (3.3-5.1) mmol/L Chloride (96-108) mmol/L Carbon Dioxide (22-29) mmol/L Anion Gap (12-20) BUN (9-16) mg/dL Creatinine (0.5-1.4) mg/dL Estim Creat Clear Calc Estimated GFR Random Glucose (60-115) mg/dL Calcium (8.4-10.2) mg/dL Magnesium (1.6-2.6) mg/dL Total Bilirubin (0.0-1.0) mg/dL AST (5-31) U/L ALT (0-31) U/L Alkaline Phosphatase (39-117) U/L Total Protein (6.5-8.0) g/dL Albumin (3.5-5.0) g/dL Lipase (8-78) U/L Urine Color Urine Appearance Urine pH (5.0-9.0) Ur Specific [place] (1.005-1.025) Urine Protein (Neg-Trace) mg/dL Urine Glucose (UA) (Negative) mg/dL Urine Ketones (Negative) mg/dL Urine Blood (Negative) Urine Nitrite (Negative) Ur Leukocyte Esterase (Negative) Urine RBC (0-2) /HPF Urine WBC (0-5) /HPF Ur Squamous Epith Cells (0-2) /HPF Urine Bacteria (None Seen) Hyaline Casts (0-2) /LPF Stool Occult Blood (NEGATIVE) Urine Opiates Screen Not Detected (Not Detect) Urine Fentanyl Screen Not Detected (Not Detect) Ur Barbiturates Screen Not Detected (Not Detect) Ur Phencyclidine Scrn Not Detected (Not Detect) Ur Amphetamines Screen Not Detected (Not Detect) U Benzodiazepines Scrn Not Detected (Not Detect) Urine Cocaine Screen Not Detected (Not Detect) U Marijuana (THC) Screen Not Detected (Not Detect) Ethyl Alcohol mg/dL Influenza Type A (PCR) (Negative) Influenza Type B (PCR) (Negative) RSV RNA Qual (PCR) (Negative) SARS-CoV-2 RNA (RT-PCR) (Negative) <YASMINE Laughlin - Last Filed: 08/07/22 19:32> Lab Results 08/07/22 08/07/22 08/07/22 Range/Units 19:35 19:47 19:47 WBC 4.6 L (4.8-10.8) X10*3/uL RBC 4.12 L (4.20-5.50) X10*6/uL Hgb 13.5 (12.0-16.0) g/dl Hct 40.4 (37.0-47.0) % MCV 98.1 H (80.0-98.0) fL MCH 32.8 (27.0-33.0) pg MCHC 33.4 (31.0-35.0) g/dl RDW 12.6 (11.0-16.0) % Plt Count 47 L (160-400) X10*3/uL MPV 10.9 (9.4-12.3) fL Immature Gran % (Auto) 0.2 (0.0-0.4) % Neut % (Auto) 76.3 H (45-73) % Lymph % (Auto) 14.5 L (20-40) % [place] % (Auto) 7.1 (2-11) % Eos % (Auto) 1.3 (0-4) % Baso % (Auto) 0.6 (0-2) % Lymph # (Auto) 0.7 L (1.2-4.9) X10*3/uL [place] # (Auto) 0.3 (0.1-1.2) X10*3/uL Eos # (Auto) 0.1 (0.0-0.4) X10*3/uL Baso # (Auto) 0.0 (0.0-0.2) X10*3/uL Abs Immat Gran (auto) 0.01 (0.00-0.03) X10*3/uL Absolute Neuts (auto) 3.5 (2.0-8.3) x10*3/uL Absolute Nucleated RBC 0.000 (0.0-0.012) X10*3/uL Nucleated RBC % (auto) 0.0 (0.0-0.2) /100WBC Smear Tech's Comments VERIFIED PT 14.3 H (10.0-13.1) SEC INR 1.2 H (0.9-1.1) Sodium (135-145) mmol/L Potassium (3.3-5.1) mmol/L Chloride (96-108) mmol/L Carbon Dioxide (22-29) mmol/L Anion Gap (12-20) BUN (9-16) mg/dL Creatinine (0.5-1.4) mg/dL Estim Creat Clear Calc Estimated GFR Random Glucose (60-115) mg/dL Calcium (8.4-10.2) mg/dL Magnesium (1.6-2.6) mg/dL Total Bilirubin (0.0-1.0) mg/dL AST (5-31) U/L ALT (0-31) U/L Alkaline Phosphatase (39-117) U/L Total Protein (6.5-8.0) g/dL Albumin (3.5-5.0) g/dL Lipase (8-78) U/L Urine Color Urine Appearance Urine pH (5.0-9.0) Ur Specific [place] (1.005-1.025) Urine Protein (Neg-Trace) mg/dL Urine Glucose (UA) (Negative) mg/dL Urine Ketones (Negative) mg/dL Urine Blood (Negative) Urine Nitrite (Negative) Ur Leukocyte Esterase (Negative) Urine RBC (0-2) /HPF Urine WBC (0-5) /HPF Ur Squamous Epith Cells (0-2) /HPF Urine Bacteria (None Seen) Hyaline Casts (0-2) /LPF Stool Occult Blood (NEGATIVE) Urine Opiates Screen (Not Detect) Urine Fentanyl Screen (Not Detect) Ur Barbiturates Screen (Not Detect) Ur Phencyclidine Scrn (Not Detect) Ur Amphetamines Screen (Not Detect) U Benzodiazepines Scrn (Not Detect) Urine Cocaine Screen (Not Detect) U Marijuana (THC) Screen (Not Detect) Ethyl Alcohol mg/dL Influenza Type A (PCR) NEGATIVE (Negative) Influenza Type B (PCR) NEGATIVE (Negative) RSV RNA Qual (PCR) NEGATIVE (Negative) SARS-CoV-2 RNA (RT-PCR) NEGATIVE (Negative) 08/07/22 08/07/22 08/07/22 Range/Units 19:47 21:51 23:17 WBC (4.8-10.8) X10*3/uL RBC (4.20-5.50) X10*6/uL Hgb (12.0-16.0) g/dl Hct (37.0-47.0) % MCV (80.0-98.0) fL MCH (27.0-33.0) pg MCHC (31.0-35.0) g/dl RDW (11.0-16.0) % Plt Count (160-400) X10*3/uL MPV (9.4-12.3) fL Immature Gran % (Auto) (0.0-0.4) % Neut % (Auto) (45-73) % Lymph % (Auto) (20-40) % [place] % (Auto) (2-11) % Eos % (Auto) (0-4) % Baso % (Auto) (0-2) % Lymph # (Auto) (1.2-4.9) X10*3/uL [place] # (Auto) (0.1-1.2) X10*3/uL Eos # (Auto) (0.0-0.4) X10*3/uL Baso # (Auto) (0.0-0.2) X10*3/uL Abs Immat Gran (auto) (0.00-0.03) X10*3/uL Absolute Neuts (auto) (2.0-8.3) x10*3/uL Absolute Nucleated RBC (0.0-0.012) X10*3/uL Nucleated RBC % (auto) (0.0-0.2) /100WBC Smear Tech's Comments PT (10.0-13.1) SEC INR (0.9-1.1) Sodium 134 L (135-145) mmol/L Potassium 4.4 (3.3-5.1) mmol/L Chloride 94 L (96-108) mmol/L Carbon Dioxide 15 L (22-29) mmol/L Anion Gap 29 H (12-20) BUN 6 L (9-16) mg/dL Creatinine 0.52 (0.5-1.4) mg/dL Estim Creat Clear Calc 143.1 Estimated GFR > 60 Random Glucose 107 (60-115) mg/dL Calcium 9.4 (8.4-10.2) mg/dL Magnesium 1.7 (1.6-2.6) mg/dL Total Bilirubin 3.5 H (0.0-1.0) mg/dL AST 134 H (5-31) U/L ALT 55 H (0-31) U/L Alkaline Phosphatase 171 H (39-117) U/L Total Protein 8.6 H (6.5-8.0) g/dL Albumin 4.8 (3.5-5.0) g/dL Lipase 12 (8-78) U/L Urine Color Dark Yellow Urine Appearance Cloudy Urine pH 5.5 (5.0-9.0) Ur Specific [place] 1.020 (1.005-1.025) Urine Protein 100 (2+) H (Neg-Trace) mg/dL Urine Glucose (UA) Negative (Negative) mg/dL Urine Ketones >=160 (Negative) mg/dL Urine Blood Moderate (2+) H (Negative) Urine Nitrite Negative (Negative) Ur Leukocyte Esterase Trace H (Negative) Urine RBC 11-20 H (0-2) /HPF Urine WBC 0-5 (0-5) /HPF Ur Squamous Epith Cells 11-20 (0-2) /HPF Urine Bacteria 1+ (None Seen) Hyaline Casts 0-2 (0-2) /LPF Stool Occult Blood NEGATIVE (NEGATIVE) Urine Opiates Screen (Not Detect) Urine Fentanyl Screen (Not Detect) Ur Barbiturates Screen (Not Detect) Ur Phencyclidine Scrn (Not Detect) Ur Amphetamines Screen (Not Detect) U Benzodiazepines Scrn (Not Detect) Urine Cocaine Screen (Not Detect) U Marijuana (THC) Screen (Not Detect) Ethyl Alcohol 202 mg/dL Influenza Type A (PCR) (Negative) Influenza Type B (PCR) (Negative) RSV RNA Qual (PCR) (Negative) SARS-CoV-2 RNA (RT-PCR) (Negative) 08/07/22 Range/Units 23:17 WBC (4.8-10.8) X10*3/uL RBC (4.20-5.50) X10*6/uL Hgb (12.0-16.0) g/dl Hct (37.0-47.0) % MCV (80.0-98.0) fL MCH (27.0-33.0) pg MCHC (31.0-35.0) g/dl RDW (11.0-16.0) % Plt Count (160-400) X10*3/uL MPV (9.4-12.3) fL Immature Gran % (Auto) (0.0-0.4) % Neut % (Auto) (45-73) % Lymph % (Auto) (20-40) % [place] % (Auto) (2-11) % Eos % (Auto) (0-4) % Baso % (Auto) (0-2) % Lymph # (Auto) (1.2-4.9) X10*3/uL [place] # (Auto) (0.1-1.2) X10*3/uL Eos # (Auto) (0.0-0.4) X10*3/uL Baso # (Auto) (0.0-0.2) X10*3/uL Abs Immat Gran (auto) (0.00-0.03) X10*3/uL Absolute Neuts (auto) (2.0-8.3) x10*3/uL Absolute Nucleated RBC (0.0-0.012) X10*3/uL Nucleated RBC % (auto) (0.0-0.2) /100WBC Smear Tech's Comments PT (10.0-13.1) SEC INR (0.9-1.1) Sodium (135-145) mmol/L Potassium (3.3-5.1) mmol/L Chloride (96-108) mmol/L Carbon Dioxide (22-29) mmol/L Anion Gap (12-20) BUN (9-16) mg/dL Creatinine (0.5-1.4) mg/dL Estim Creat Clear Calc Estimated GFR Random Glucose (60-115) mg/dL Calcium (8.4-10.2) mg/dL Magnesium (1.6-2.6) mg/dL Total Bilirubin (0.0-1.0) mg/dL AST (5-31) U/L ALT (0-31) U/L Alkaline Phosphatase (39-117) U/L Total Protein (6.5-8.0) g/dL Albumin (3.5-5.0) g/dL Lipase (8-78) U/L Urine Color Urine Appearance Urine pH (5.0-9.0) Ur Specific [place] (1.005-1.025) Urine Protein (Neg-Trace) mg/dL Urine Glucose (UA) (Negative) mg/dL Urine Ketones (Negative) mg/dL Urine Blood (Negative) Urine Nitrite (Negative) Ur Leukocyte Esterase (Negative) Urine RBC (0-2) /HPF Urine WBC (0-5) /HPF Ur Squamous Epith Cells (0-2) /HPF Urine Bacteria (None Seen) Hyaline Casts (0-2) /LPF Stool Occult Blood (NEGATIVE) Urine Opiates Screen Not Detected (Not Detect) Urine Fentanyl Screen Not Detected (Not Detect) Ur Barbiturates Screen Not Detected (Not Detect) Ur Phencyclidine Scrn Not Detected (Not Detect) Ur Amphetamines Screen Not Detected (Not Detect) U Benzodiazepines Scrn Not Detected (Not Detect) Urine Cocaine Screen Not Detected (Not Detect) U Marijuana (THC) Screen Not Detected (Not Detect) Ethyl Alcohol mg/dL Influenza Type A (PCR) (Negative) Influenza Type B (PCR) (Negative) RSV RNA Qual (PCR) (Negative) SARS-CoV-2 RNA (RT-PCR) (Negative) <Sandie Higuera MD - Last Filed: 08/08/22 00:32> Independent Interpretation I performed an independent interpretation of an: Plain X-Ray (My interpretation, unremarkable) <Sandie Higuera MD - Last Filed: 08/08/22 00:32> Radiology Impression Discussion of test interpretation with radiology: I have reviewed the radiologist's reading. (Chest x-ray:INDINGS: No significant abnormality is noted involving the heart, lungs, mediastinum, bony t horax or soft tissues. XR/XR chest 1V IMPRESSION: Unremarkable examination. ) <Sandie Higuera MD - Last Filed: 08/08/22 00:32> Chronic Conditions Patient?s care impacted by: Other (Alcoholism, patient was started on a phenobarb drip to avoid withdrawal) <Sandie Higuera MD - Last Filed: 08/08/22 00:32> Critical Care Time Critical Care Time Critical Care Time: Yes <Sandie Higuera MD - Last Filed: 08/08/22 00:32> Total Critical Care Time: 30 <Sandie Higuera MD - Last Filed: 08/08/22 00:32> Attestation: I have personally provided critical care time. Time includes review of lab data, radiology results, discussion with consultants, and monitoring for potential decompensation. Intervention performed as documented. <Sandie Higuera MD - Last Filed: 08/08/22 00:32> Discharge Plan Discharge Clinical Impression: UTI (urinary tract infection), Weakness, Alcoholism <YASMINE Laughlin - Last Filed: 08/07/22 19:32> Patient Disposition: Admitted as Observation <YASMINE Laughlin - Last Filed: 08/07/22 19:32> Prescriptions: No Action magnesium oxide 400 mg (241.3 mg magnesium) tablet 1 tab PO DAILY cyanocobalamin (vitamin B-12) [Vitamin B-12] 500 mcg tablet 1 tab PO DAILY cholecalciferol (vitamin D3) 50 mcg (2,000 unit) capsule 1 cap PO DAILY nadolol 20 mg Tablet 20 mg PO DAILY acamprosate 333 mg tablet,delayed release (DR/EC) 666 mg PO TID Qty: 180 0RF thiamine HCl (vitamin B1) 100 mg tablet 100 mg PO DAILY Qty: 30 0RF folic acid 1 mg tablet 1 mg PO DAILY Qty: 30 1RF mirtazapine 7.5 mg tablet 7.5 mg PO BEDTIME Qty: 30 0RF <YASMINE Laughlin - Last Filed: 08/07/22 19:32>
[2022-08-07 19:57] LABS: Eosinophils Absolute Auto 0.1 X10*3/uL (0.0-0.4); Eosinophils Percent Auto 1.3 % (0-4); Hemoglobin 13.5 g/dl (12.0-16.0); Imm Gran Abs Auto 0.01 X10*3/uL (0.00-0.03); Imm Gran Pct Auto 0.2 % (0.0-0.4); MANUAL DIFF FLAG SCAN; PLT CLUMP 1; Red Cell Distribution Width 12.6 % (11.0-16.0); SCAN SMEAR FLAG 1
[2022-08-07 19:59] LABS: Basophils Percent Auto 0.6 % (0-2); Hematocrit 40.4 % (37.0-47.0); Lymphocytes Absolute Auto 0.7 X10*3/uL (1.2-4.9); Lymphocytes Percent Auto 14.5 % (20-40); Mean Corpuscular HGB Conc 33.4 g/dl (31.0-35.0); Mean Corpuscular Hemoglobin 32.8 pg (27.0-33.0); Mean Corpuscular Volume 98.1 fL (80.0-98.0); Mean Platelet Volume 10.9 fL (9.4-12.3); Monocytes Absolute Auto 0.3 X10*3/uL (0.1-1.2); Monocytes Percent Auto 7.1 % (2-11); Neutrophils Absolute Auto 3.5 x10*3/uL (2.0-8.3); Neutrophils Percent Auto 76.3 % (45-73); Red Blood Count 4.12 X10*6/uL (4.20-5.50)
[2022-08-07 20:02] LABS: INTERNATIONAL NORM RATIO 1.2 (0.9-1.1); Prothrombin Time 14.3 SEC (10.0-13.1)
[2022-08-07 20:16] LABS: Platelet Count 47 X10*3/uL (160-400); White Blood Count 4.6 X10*3/uL (4.8-10.8)
[2022-08-07 20:17] LABS: SLIDE REVIEW VERIFIED
[2022-08-07 20:21] LABS: Influenza A PCR NEGATIVE (Negative); Influenza B PCR NEGATIVE (Negative); Resp Syncy Virus RNA Qual PCR NEGATIVE (Negative); SARS COV2 PCR INHOUSE NEGATIVE (Negative)
[2022-08-07 20:25] LABS: Alanine Aminotransferase 55 U/L (0-31); Albumin Level 4.8 g/dL (3.5-5.0); Alkaline Phosphatase 171 U/L (39-117); Anion Gap 29 (12-20); Aspartate Amino Transferase 134 U/L (5-31); Bilirubin Total 3.5 mg/dL (0.0-1.0); Blood Urea Nitrogen 6 mg/dL (9-16); Calcium 9.4 mg/dL (8.4-10.2); Carbon Dioxide 15 mmol/L (22-29); Chloride 94 mmol/L (96-108); Creatinine Clr Calc Pharmacy 143.1; Estimated Glomerular Filt Rate > 60; Ethanol 202 mg/dL; Glucose Random 107 mg/dL (60-115); Lipase 12 U/L (8-78); Magnesium 1.7 mg/dL (1.6-2.6); Potassium 4.4 mmol/L (3.3-5.1); Sodium 134 mmol/L (135-145); Total Protein 8.6 g/dL (6.5-8.0)
[2022-08-07 22:05] LABS: OBS Int Ctl Valid YES; OBS1 NEGATIVE (NEGATIVE)
[2022-08-07] MEDS: 0.9 % Sodium Chloride 1,000 ML 999 ML IVCONT (22:06)
[2022-08-07] MEDS: Folic Acid 1 MG TABLET PO (22:07)
[2022-08-07] MEDS: Loperamide HCl 2 MG CAPSULE 4 MG PO (22:07)
[2022-08-07] MEDS: Thiamine HCL 100 MG in 0.9 % Sodium Chloride 100 ML 202 MG IV (22:11)
--- NOTE | 2022-08-07 22:20 | PHA.MEDREC ---
med rec complete, per patient she has not been on any medications for several weeks, these meds are things she belives she should still be on Pharmacy Consult ? Medication Reconciliation Pharmacy has completed the medication reconciliation.
[2022-08-07] MEDS: PHENobarbitaL sodium 130 MG/ML IM ONCE 306 MG IM (22:25)
[2022-08-07 22:40] VITALS: BP 130/83; PULSE 97; TEMP 36.9; O2SAT 95
[2022-08-07] MEDS: Mineral Oil/Petrolatum,White 106 GM Tube 1 APPL TOPICAL (23:11)
--- NOTE | 2022-08-07 23:15 | PC.NURSE ---
PT reported unable to get to the bathroom. PT bottom red, no open areas noted. Incontinent care provided, changed over to hospital gown, dermacerin cream applied to bottom area.
[2022-08-07 23:27] LABS: Appearance Urine Cloudy; Color Urine Dark Yellow; Glucose Urine UA Negative (Negative); Leukocyte Esterase Urine Trace (Negative); Nitrite Urine Negative (Negative); PH 5.5 (5.0-9.0); UMIC TRIGGER UACC YES; Urine Blood Moderate (2+) (Negative); Urine Ketones >=160 mg/dL (Negative); Urine Protein 100 (2+) mg/dL (Neg-Trace)
[2022-08-07 23:42] LABS: Amphetamine Screen Urine Not Detected (Not Detect); Barbiturates, Urine Not Detected (Not Detect); Benzodiazepines Screen Urine Not Detected (Not Detect); Cannabinoid Screen Urine Not Detected (Not Detect); Cocaine Screen Urine Not Detected (Not Detect); Fentanyl, urine Not Detected (Not Detect); Opiate Screen Urine Not Detected (Not Detect); Phencyclidine Screen Urine Not Detected (Not Detect)
[2022-08-08 00:11] LABS: Bacteria Urine 1+ (None Seen); Hyaline Casts Urine 0-2 /LPF (0-2); WBC Urine 0-5 /HPF (0-5)
--- NOTE | 2022-08-08 00:35 | PC.NURSE ---
PT A&Ox3, reports hand and feet numbness/tingling worse with movement. CIWA scale 5. Meds given as documented.
[2022-08-08] MEDS: cefTRIAXone sodium 1 GM in 0.9 % Sodium Chloride 50 ML IV ×2 (00:59→20:54)
--- NOTE | 2022-08-08 01:44 | P.HPHOSP_ITS ---
History of Present Illness Date of Service: 08/08/22 Chief Complaint: detox, nausea vomiting, weakness, diarrhea 51-year-old female with past medical history of alcohol abuse, depression, anxiety, hypertension, who presents to the hospital with complaints of relapsing in took alcohol abuse, wanting detox, also complaining of severe weakness after having almost close to no oral intake except alcohol for the past few days, reports some nausea, intermittent episodes of vomiting, and loose stools for the past few days. Patient reports that she got COVID about a month ago she stopped taking her psych meds as well as relapse into alcohol abuse. She drinks daily, she drinks about 6 nebs of vodka as well as 4-6 small bottles of wine. Patient denies any chest pain, no shortness of breath, no abdominal pain, urinary frequency, no lower extremity edema. Patient reports currently being in withdrawal from alcohol. She does complain of chronic neuropathic pain. on arrival to the ED patient hemodynamically stable with no significant abnormal vitals labs are found to be significant for WBC count of 4.6, INR of 1.2, sodium 134, chloride of 94, total bili of 3.5 which is around her baseline, AST of 134, ALT of 55, alk-phos of 171, which is similar to her previous, UA positive for leukocyte Estrace and WBC, UDS negative for any drugs, alcohol level of 202, viral serology negative Patient started on phenobarb Review of Systems Review of Systems: Yes all other systems are reviewed and are negative [facility] Medical History Alcohol abuse Alcoholic ketoacidosis Anxiety Dehydration Depression Hypertension Hypertension Family History Other No family history of coronary artery disease Surgical History No pertinent past surgical history Social History Household Members: None Housing: House Do you presently have visiting nurse or other home services: No Alcohol intake: current Alcohol intake frequency: 3 or more drinks per day Alcohol type: hard liquor Patient Tobacco Use Status: Never used Tobacco Smoked in Last 30 Days: No Use of substances other than those prescribed or required for medical reasons: No Have you been hit, kicked, punched, or otherwise hurt by someone within the past year? If so, by whom?: No Do you feel safe in your current relationship?: No Current Relationship Is there a partner from a previous relationship who is making you feel unsafe now?: No Are you made to feel afraid or neglected: No Advance Directives: Yes Advance Directives on File: Yes Advance Directives Date on File: 05/18/22 Do you have thoughts of harming others: None Do you have a plan to hurt others: No Plan Recently lost weight without trying: Unsure How much weight loss: 34pounds or more Eating poorly because of decreased appetite: Yes Nutrition screen score: 7 Nutrition Risks: Poor intake 0-25% >4 days Patient : No : No Poor oral hygiene: No service: No Current occupational status: employed Meds Allergies Allergy/AdvReac Type Severity Reaction Status Date / Time No Known Allergies Allergy Verified 08/08/22 02:46 Active Medications: Current Medications Pharmacy Consult (Consult Rx Etoh Phenob Im/Po) 1 each MISCELLANE ONCE PRN; Protocol PRN Reason: Consult order Phenobarbital (Phenobarbital 15 Mg Tablet) 45 mg PO BID [facility] Stop: 08/09/22 21:01 Phenobarbital (Phenobarbital 30 Mg Tablet) 30 mg PO BID [facility] Stop: 08/11/22 21:01 Phenobarbital (Phenobarbital 15 Mg Tablet) 15 mg PO DAILY [facility] Stop: 08/13/22 09:01 Phenobarbital Sodium (Phenobarbital Sodium 130 Mg/Ml Vial Im Q3hx2) 229 mg IM Q3H [facility] Stop: 08/08/22 05:01 Home Medications Medication Instructions Recorded Confirmed Last Taken Type cholecalciferol (vitamin D3) 50 1 cap PO DAILY 05/17/22 08/07/22 Unknown History mcg (2,000 unit) capsule cyanocobalamin (vitamin B-12) 500 1 tab PO DAILY 05/17/22 08/07/22 Unknown History mcg tablet (Vitamin B-12) magnesium oxide 400 mg (241.3 mg 1 tab PO DAILY 05/17/22 08/07/22 Unknown History magnesium) tablet nadolol 20 mg tablet 20 mg PO DAILY 08/07/22 08/07/22 Unknown History Physical Exam Vital Signs and Narrative: Vital Signs: Last Vital Signs Temp 98.5 F 08/07/22 22:40 Pulse 97 08/07/22 22:40 Resp 18 08/07/22 19:28 BP 130/83 08/07/22 22:40 Pulse Ox 95 08/07/22 22:40 O2 Del Method 08/07/22 22:40 BMI result Body Mass Index 26.6 Const: Other: poor hygiene, appears ill General: cooperative and no acute distress Orientation/consciousness: patient oriented x3 Eyes: General: appearance normal, both eyes and all related structures Resp: Effort & Inspection: normal respiratory effort Auscultation: clear to auscultation bilaterally Cardio: Rate: regular rate Rhythm: regular rhythm GI: Palpation (GI): Soft to palpation Auscultation: normal bowel sounds Skin: General skin exam: no rashes or lesions noted Neuro: Other: asterixis is General: patient oriented x3 Cognition (Neuro): normal cognition Extrem: General: Yes normal to inspection and Yes no pedal edema Results Labs CBC and Chem 7: 08/08/22 05:39 08/08/22 05:39 Labs: Laboratory Results - last 24 hr 08/07/22 08/07/22 08/07/22 19:35 19:47 19:47 MCV 98.1 H MCH 32.8 MCHC 33.4 RDW 12.6 Plt Count 47 L MPV 10.9 Immature Gran % (Auto) 0.2 Neut % (Auto) 76.3 H Lymph % (Auto) 14.5 L Robeson % (Auto) 7.1 Eos % (Auto) 1.3 Baso % (Auto) 0.6 Lymph # (Auto) 0.7 L Robeson # (Auto) 0.3 Eos # (Auto) 0.1 Baso # (Auto) 0.0 Abs Immat Gran (auto) 0.01 Absolute Neuts (auto) 3.5 Absolute Nucleated RBC 0.000 Nucleated RBC % (auto) 0.0 Smear Tech's Comments VERIFIED PT 14.3 H INR 1.2 H Anion Gap Estim Creat Clear Calc Estimated GFR Random Glucose Calcium Magnesium Total Bilirubin AST ALT Alkaline Phosphatase Total Protein Albumin Lipase Urine Color Urine Appearance Urine pH Ur Specific [place] Urine Protein Urine Glucose (UA) Urine Ketones Urine Blood Urine Nitrite Ur Leukocyte Esterase Urine RBC Urine WBC Ur Squamous Epith Cells Urine Bacteria Hyaline Casts Stool Occult Blood Urine Opiates Screen Urine Fentanyl Screen Ur Barbiturates Screen Ur Phencyclidine Scrn Ur Amphetamines Screen U Benzodiazepines Scrn Urine Cocaine Screen U Marijuana (THC) Screen Ethyl Alcohol Influenza Type A (PCR) NEGATIVE Influenza Type B (PCR) NEGATIVE RSV RNA Qual (PCR) NEGATIVE SARS-CoV-2 RNA (RT-PCR) NEGATIVE 08/07/22 08/07/22 08/07/22 19:47 21:51 23:17 MCV MCH MCHC RDW Plt Count MPV Immature Gran % (Auto) Neut % (Auto) Lymph % (Auto) Robeson % (Auto) Eos % (Auto) Baso % (Auto) Lymph # (Auto) Robeson # (Auto) Eos # (Auto) Baso # (Auto) Abs Immat Gran (auto) Absolute Neuts (auto) Absolute Nucleated RBC Nucleated RBC % (auto) Smear Tech's Comments PT INR Anion Gap 29 H Estim Creat Clear Calc 143.1 Estimated GFR > 60 Random Glucose 107 Calcium 9.4 Magnesium 1.7 Total Bilirubin 3.5 H AST 134 H ALT 55 H Alkaline Phosphatase 171 H Total Protein 8.6 H Albumin 4.8 Lipase 12 Urine Color Dark Yellow Urine Appearance Cloudy Urine pH 5.5 Ur Specific [place] 1.020 Urine Protein 100 (2+) H Urine Glucose (UA) Negative Urine Ketones >=160 Urine Blood Moderate (2+) H Urine Nitrite Negative Ur Leukocyte Esterase Trace H Urine RBC 11-20 H Urine WBC 0-5 Ur Squamous Epith Cells 11-20 Urine Bacteria 1+ Hyaline Casts 0-2 Stool Occult Blood NEGATIVE Urine Opiates Screen Urine Fentanyl Screen Ur Barbiturates Screen Ur Phencyclidine Scrn Ur Amphetamines Screen U Benzodiazepines Scrn Urine Cocaine Screen U Marijuana (THC) Screen Ethyl Alcohol 202 Influenza Type A (PCR) Influenza Type B (PCR) RSV RNA Qual (PCR) SARS-CoV-2 RNA (RT-PCR) 08/07/22 23:17 MCV MCH MCHC RDW Plt Count MPV Immature Gran % (Auto) Neut % (Auto) Lymph % (Auto) Rob[place] % (Auto) Eos % (Auto) Baso % (Auto) Lymph # (Auto) Robeson # (Auto) Eos # (Auto) Baso # (Auto) Abs Immat Gran (auto) Absolute Neuts (auto) Absolute Nucleated RBC Nucleated RBC % (auto) Smear Tech's Comments PT INR Anion Gap Estim Creat Clear Calc Estimated GFR Random Glucose Calcium Magnesium Total Bilirubin AST ALT Alkaline Phosphatase Total Protein Albumin Lipase Urine Color Urine Appearance Urine pH Ur Specific [place] Urine Protein Urine Glucose (UA) Urine Ketones Urine Blood Urine Nitrite Ur Leukocyte Esterase Urine RBC Urine WBC Ur Squamous Epith Cells Urine Bacteria Hyaline Casts Stool Occult Blood Urine Opiates Screen Not Detected Urine Fentanyl Screen Not Detected Ur Barbiturates Screen Not Detected Ur Phencyclidine Scrn Not Detected Ur Amphetamines Screen Not Detected U Benzodiazepines Scrn Not Detected Urine Cocaine Screen Not Detected U Marijuana (THC) Screen Not Detected Ethyl Alcohol Influenza Type A (PCR) Influenza Type B (PCR) RSV RNA Qual (PCR) SARS-CoV-2 RNA (RT-PCR) Imaging Radiologist's Impressions: Impressions Chest X-Ray 08/07/22 20:24 IMPRESSION: Unremarkable examination. Assessment and Plan (1) Alcohol use disorder, severe, dependence: Status: Acute (2) Alcohol withdrawal syndrome: Status: Acute (3) UTI (urinary tract infection): Status: Acute (4) Weakness: Status: Acute Plan 51-year-old female with past medical history of alcohol abuse presents to the hospital with alcohol withdrawal # alcohol abuse with alcohol withdrawal syndrome - treat with phenobarb protocol, IV fluids, - folic and thiamine supplement # generalized weakness, nausea vomiting, poor oral intake - secondary to alcohol abuse - start on IV fluids - will likely need detox again - consult care team # acute UTI - has urinary frequency - will treat with IV antibiotics - follow cultures # depression anxiety - continue home medications DVT prophylaxis: Lovenox given requirement for phenobarb, in close monitoring of alcohol withdrawal patient requirement room [facility] inpatient hospital stay for further management monitor Time Spent With Patient Time: Total time managing care of this patient today ____ minutes. Quality Stroke Does the patient have a stroke diagnosis?: No VTE Prior VTE?: No VTE Risk Level:: Medical - moderate - high VTE Device Contraindication: Treatment Not Indicated VTE Drug Contraindication: N/A - Med Ordered
[2022-08-08] MEDS: PHENobarbitaL sodium 130 MG/ML VIAL IM Q3Hx2 229 MG IM ×2 (02:12→05:44)
[2022-08-08 02:16] VITALS: BP 131/82; PULSE 99; RESP 18; O2SAT 98
[2022-08-08] MEDS: Metoclopramide HCl 10 MG/2 ML VIAL IVPUSH (02:18)
[2022-08-08] MEDS: 0.9 % Sodium Chloride 1,000 ML 100 ML IVCONT ×3 (02:47→19:18)
[2022-08-08] MEDS: Enoxaparin Sodium 40 MG/0.4 ML SYRINGE SUBCUT (02:51)
[2022-08-08] MEDS: Gabapentin 300 MG CAPSULE PO (02:51)
[2022-08-08 03:14] VITALS: BP 134/71; PULSE 105; RESP 16; TEMP 38.1; O2SAT 96
[2022-08-08] MEDS: Mirtazapine 7.5 MG TABLET PO ×2 (03:35→20:53)
[2022-08-08 03:39] VITALS: BMI 27.1
[2022-08-08] MEDS: Morphine Sulfate 4 MG/ML CARTRIDGE IVPUSH ×2 (05:43→13:58)
[2022-08-08 05:49] LABS: MANUAL DIFF FLAG NO
[2022-08-08 05:53] LABS: Basophils Percent Auto 0.8 % (0-2); Eosinophils Percent Auto 0.5 % (0-4); Hematocrit 34.5 % (37.0-47.0); Hemoglobin 11.7 g/dl (12.0-16.0); Imm Gran Abs Auto 0.01 X10*3/uL (0.00-0.03); Imm Gran Pct Auto 0.3 % (0.0-0.4); Lymphocytes Absolute Auto 1.4 X10*3/uL (1.2-4.9); Lymphocytes Percent Auto 36.4 % (20-40); Mean Corpuscular HGB Conc 33.9 g/dl (31.0-35.0); Mean Corpuscular Hemoglobin 33.2 pg (27.0-33.0); Mean Platelet Volume 10.4 fL (9.4-12.3); Monocytes Absolute Auto 0.4 X10*3/uL (0.1-1.2); Monocytes Percent Auto 9.8 % (2-11); Neutrophils Percent Auto 52.2 % (45-73); Red Blood Count 3.52 X10*6/uL (4.20-5.50); Red Cell Distribution Width 12.7 % (11.0-16.0); White Blood Count 3.9 X10*3/uL (4.8-10.8)
[2022-08-08 05:55] LABS: Platelet Count 31 X10*3/uL (160-400)
--- NOTE | 2022-08-08 06:01 | MHC.PIE ---
p; pt c/o pain 05/02 to [facility], jabbing like. note; pt has only Tylenol for pain e; dr butcher notified. new order morphine 4 mg q4 prn e; [facility]
[2022-08-08 06:14] LABS: Blood Urea Nitrogen 4 mg/dL (9-16); Creatinine Clr Calc Pharmacy 129.4; Estimated Glomerular Filt Rate > 60; Glucose Random 70 mg/dL (60-115)
[2022-08-08 06:28] LABS: Estimated Average Glucose 82 mg/dL; Hemoglobin A1c % 4.5 %
[2022-08-08 06:34] LABS: Anion Gap 21 (12-20); Calcium 8.6 mg/dL (8.4-10.2); Carbon Dioxide 19 mmol/L (22-29); Chloride 97 mmol/L (96-108); Potassium 3.1 mmol/L (3.3-5.1); Sodium 134 mmol/L (135-145)
[2022-08-08 07:35] VITALS: BP 151/88; PULSE 102; RESP 18; TEMP 37.4; O2SAT 90
[2022-08-08 07:57] LABS: Lactic Acid 0.8 mmol/L (0.5-2.0)
[2022-08-08] MEDS: Potassium Chloride ER 20 MEQ TAB.ER.PRT 40 MEQ PO (08:49)
[2022-08-08] MEDS: PHENobarbitaL 15 MG TABLET 45 MG PO ×2 (08:50→20:53)
[2022-08-08] MEDS: Folic Acid 1 MG TABLET PO (08:50)
[2022-08-08] MEDS: nadoloL 20 MG TABLET PO (08:50)
[2022-08-08] MEDS: Magnesium Oxide 400 MG TABLET PO (08:50)
[2022-08-08] MEDS: Cyanocobalamin (Vitamin B-12) 500 MCG TABLET PO (08:50)
[2022-08-08] MEDS: Cholecalciferol (Vitamin D3) 25 MCG TABLET 50 MCG PO (08:50)
[2022-08-08] MEDS: 0.9 % Sodium Chloride Flush 3 ML SYRINGE IVFLUSH ×2 (08:50→10:19)
[2022-08-08] MEDS: Acetaminophen 325 MG TABLET 650 MG PO ×2 (08:56→18:38)
[2022-08-08 11:34] VITALS: BP 127/68; PULSE 81; RESP 16; TEMP 36.8; O2SAT 94
[2022-08-08 11:57] LABS: CDiff Gene PCR POSITIVE (Negative)
[2022-08-08 14:29] LABS: CDIFF Internal ctrl Dots and bkg OK (V); CDiff Toxin Negative (Negative)
--- NOTE | 2022-08-08 14:59 | PM.EVENT ---
Event Note Date of Service: 08/08/22 Event Note: 51-year-old female with past medical history of alcohol abuse, presented to [facility] due to symptoms of nausea vomiting weakness and diarrhea patient had COVID a month ago and stopped taking her psych medication for anxiety and depression and instead relapse into alcohol abuse has been drinking 6 nebs of vodka as well as 4-6 small portals of wine daily no presented with withdrawal symptoms from alcohol. Seeking detox #? alcohol abuse with alcohol withdrawal syndrome -? continue phenobarb protocol, IV fluids, -? folic and thiamine supplement, continue magnesium, B12 -? consult care team #? acute UTI -? continue IV ceftriaxone day 1 #? depression anxiety -? continue mirtazipine # neuropathy complaining of left foot pain noted to have fungal infection in between toes apply nystatin powder, will DC IV morphine consider Neurontin once done with phenobarb protocol, will place on as needed oxycodone DVT prophylaxis on Lovenox Time Spent With Patient Time: Total time managing care of this patient today ____ minutes.
[2022-08-08 15:02] VITALS: BP 124/70; PULSE 89; RESP 18; TEMP 37.3; O2SAT 94
[2022-08-08] MEDS: oxyCODONE HCl Immed Release 5 MG TABLET PO (18:38)
[2022-08-08 19:17] VITALS: BP 123/65; PULSE 91; RESP 18; TEMP 37.8; O2SAT 93
[2022-08-08] MEDS: Nystatin Powder 15 GM BOTTLE 1 APPL TOPICAL (20:53)
--- NOTE | 2022-08-08 22:58 | MHC.PIE ---
p; blood cx + gram + cocci in cluster x3, two out of two aerobic bottles + i; dr butcher notified e; will cont to monitor
[2022-08-09] MEDS: 0.9 % Sodium Chloride 1,000 ML 100 ML IVCONT (03:13)
[2022-08-09] MEDS: Enoxaparin Sodium 40 MG/0.4 ML SYRINGE SUBCUT (03:13)
[2022-08-09 03:21] VITALS: BP 118/64; PULSE 85; RESP 14; TEMP 37.3; O2SAT 94
[2022-08-09 07:21] VITALS: BP 121/79; PULSE 95; RESP 18; TEMP 37.4; O2SAT 95
[2022-08-09 07:30] LABS: Anion Gap 14 (12-20); Blood Urea Nitrogen 4 mg/dL (9-16); Calcium 8.6 mg/dL (8.4-10.2); Carbon Dioxide 25 mmol/L (22-29); Chloride 99 mmol/L (96-108); Estimated Glomerular Filt Rate > 60; Glucose Random 91 mg/dL (60-115); Hematocrit 33.6 % (37.0-47.0); Hemoglobin 11.4 g/dl (12.0-16.0); Mean Corpuscular HGB Conc 33.9 g/dl (31.0-35.0); Mean Corpuscular Hemoglobin 33.3 pg (27.0-33.0); Mean Corpuscular Volume 98.2 fL (80.0-98.0); Mean Platelet Volume 11.7 fL (9.4-12.3); Potassium 3.3 mmol/L (3.3-5.1); Red Blood Count 3.42 X10*6/uL (4.20-5.50); Red Cell Distribution Width 12.3 % (11.0-16.0); Sodium 135 mmol/L (135-145); White Blood Count 2.7 X10*3/uL (4.8-10.8)
[2022-08-09 07:32] LABS: Platelet Count 28 X10*3/uL (160-400)
[2022-08-09] MEDS: nadoloL 20 MG TABLET PO (10:12)
[2022-08-09] MEDS: Cholecalciferol (Vitamin D3) 25 MCG TABLET 50 MCG PO (10:13)
[2022-08-09] MEDS: PHENobarbitaL 15 MG TABLET 45 MG PO ×2 (10:14→20:31)
[2022-08-09] MEDS: Cyanocobalamin (Vitamin B-12) 500 MCG TABLET PO (10:14)
[2022-08-09] MEDS: Magnesium Oxide 400 MG TABLET PO (10:14)
[2022-08-09] MEDS: Folic Acid 1 MG TABLET PO (10:14)
[2022-08-09] MEDS: Nystatin Powder 15 GM BOTTLE 1 APPL TOPICAL ×2 (10:14→20:30)
[2022-08-09] MEDS: 0.9 % Sodium Chloride Flush 3 ML SYRINGE IVFLUSH ×2 (10:17→20:31)
--- NOTE | 2022-08-09 10:28 | HO.PM.IMPN ---
Subjective Subjective Date of Service: 08/09/22 Interval History: Seen in follow up for acute alcohol withdrawal, seeking detox Interval history: No complaints. Tolerating diet, no n/v. Continues with neuropathy feet and hands b/l. Desires cessation from alcohol, not interested in inpt rehab, has quit in the past. Has life skills coach, therapist, good supports Review of Systems General: No fevers, malaise, unintentional weight loss Cardiovascular: No chest pain, palpitations, or leg edema Respiratory: No shortness of breath, wheezing, cough GI: No abdominal pain, nausea, vomiting, diarrhea : No dysuria, hematuria MSK: No myalgia, back pain Neuro: No headaches, weakness, paresthesias Skin: No rashes or lesions Physical Exam Vital Signs: Vital Signs: Last Vital Signs Temp 99.4 F 08/09/22 07:21 Pulse 95 08/09/22 07:21 Resp 18 08/09/22 07:21 BP 121/79 08/09/22 07:21 Pulse Ox 95 08/09/22 07:21 O2 Del Method 08/09/22 07:21 BMI result Body Mass Index 27.1 Constitutional - Awake and Alert, No apparent distress Eyes - PERRLA, EOMI Cardiovascular - S1S2, RRR, No edema Respiratory - Normal lung expansion, Normal respiratory effort, No respiratory distress, CTA bilaterally Gastrointestinal - NT / ND; +BS; No rebound or guarding Extremities - no calf tenderness bilaterally, no swelling Skin - Warm/Dry Neurological - Alert & oriented x3 Psychological - Appropriate affect Objective Data Active Medications Acetaminophen (Acetaminophen 325 Mg Tablet) 650 mg PO Q6H PRN PRN Reason: Pain, Mild (Pain Scale 1-3) Last Admin: 08/08/22 18:38 Dose: 650 mg Documented By: ADELINE-TAMIKO Cyanocobalamin (Cyanocobalamin (Vitamin B-12) 500 Mcg Tablet) 500 mcg PO DAILY [facility] Last Admin: 08/09/22 10:14 Dose: 500 mcg Documented By: NILAM Docusate Sodium (Docusate Sodium 100 Mg Capsule) 100 mg PO DAILY PRN PRN Reason: Constipation Enoxaparin Sodium (Enoxaparin Sodium 40 Mg/0.4 Ml Syringe) 40 mg SUBCUT Q24H [facility] Last Admin: 08/09/22 03:13 Dose: 40 mg Documented By: GRISELDA Folic Acid (Folic Acid 1 Mg Tablet) 1 mg PO DAILY [facility] Last Admin: 08/09/22 10:14 Dose: 1 mg Documented By: NILAM Ceftriaxone Sodium 1 gm/ (Sodium Chloride) 50 mls @ 100 mls/hr IV Q24H [facility] Last Infusion: 08/08/22 21:38 Dose: 0 mls/hr Documented By: GRISELDA Sodium Chloride (Ns) 1,000 mls @ 100 mls/hr IVCONT .Q10H [facility] Last Admin: 08/09/22 03:13 Dose: 100 mls/hr Documented By: GRISELDA Magnesium Oxide (Magnesium Oxide 400 Mg Tablet) 400 mg PO DAILY [facility] Last Admin: 08/09/22 10:14 Dose: 400 mg Documented By: NILAM Mirtazapine (Mirtazapine 7.5 Mg Tablet) 7.5 mg PO BEDTIME [facility] Last Admin: 08/08/22 20:53 Dose: 7.5 mg Documented By: GRISELDA Nadolol (Nadolol 20 Mg Tablet) 20 mg PO DAILY [facility]; Protocol Last Admin: 08/09/22 10:12 Dose: 20 mg Documented By: NILAM Nystatin (Nystatin Powder 15 Gm Bottle) 1 appl TOPICAL BID [facility]; Protocol Last Admin: 08/09/22 10:14 Dose: 1 appl Documented By: NILAM Ondansetron HCl (Ondansetron Hcl 4 Mg/2 Ml Vial) 4 mg IVPUSH Q8H PRN PRN Reason: Nausea and Vomiting Oxycodone HCl (Oxycodone Hcl Immed Release 5 Mg Tablet) 5 mg PO Q6H PRN PRN Reason: Pain, Severe (Pain Scale 7-10) Last Admin: 08/08/22 18:38 Dose: 5 mg Documented By: ADELINE-TAMIKO Pharmacy Consult (Consult Rx Etoh Phenob Im/Po) 1 each MISCELLANE ONCE PRN; Protocol PRN Reason: Consult order Phenobarbital (Phenobarbital 15 Mg Tablet) 45 mg PO BID [facility] Stop: 08/09/22 21:01 Last Admin: 08/09/22 10:14 Dose: 45 mg Documented By: NILAM Phenobarbital (Phenobarbital 30 Mg Tablet) 30 mg PO BID [facility] Stop: 08/11/22 21:01 Phenobarbital (Phenobarbital 15 Mg Tablet) 15 mg PO DAILY [facility] Stop: 08/13/22 09:01 Sodium Chloride (0.9 % Sodium Chloride Flush 3 Ml Syringe) 3 ml IVFLUSH QSHIFT [facility] Last Admin: 08/09/22 10:17 Dose: 3 ml Documented By: NILAM Vitamin D (Cholecalciferol (Vitamin D3) 25 Mcg Tablet) 50 mcg PO DAILY [facility] Last Admin: 08/09/22 10:13 Dose: 50 mcg Documented By: NILAM Labs CBC & Chem 7: 08/09/22 06:33 08/09/22 06:33 Labs: Laboratory Results - last 24 hr 08/08/22 08/09/22 08/09/22 09:25 06:33 06:33 MCV 98.2 H MCH 33.3 H MCHC 33.9 RDW 12.3 Plt Count 28 L MPV 11.7 Absolute Nucleated RBC 0.000 Nucleated RBC % (auto) 0.0 Anion Gap 14 Estim Creat Clear Calc 123.0 Estimated GFR > 60 Random Glucose 91 Calcium 8.6 C. difficile Tox B Gene POSITIVE A* C. difficile Toxin A&B Negative C. difficile Interpret SEE NOTE Microbiology Microbiology Results: Microbiology 08/07/22 23:17 Urine Culture - Preliminary Urine clean catch - Urine bennett top Culture in progress. 08/08/22 00:53 Blood Culture - Preliminary Blood - Venous Prelim: GPC Gram Stain only 08/08/22 00:53 Blood Culture - Preliminary Blood - Venous Prelim: GPC Gram Stain only Assessment and Plan (1) UTI (urinary tract infection): Status: Acute (2) Alcoholism: Status: Acute (3) Weakness: Status: Acute (4) Bacteremia: Status: Acute Plan ?51-year-old female with past medical history of alcohol abuse presents to the hospital with alcohol withdrawal #? alcohol abuse with alcohol withdrawal syndrome -? treat with phenobarb protocol, IV fluids, -? folic and thiamine supplement - resume acamprosate - Follow CIWA - Care team consulted #? generalized weakness, nausea vomiting, poor oral intake- resolved, tolerating diet -? secondary to alcohol abuse -? DC IVF, encourage PO fluids -? consult care team #? acute UTI -? has urinary frequency -? will treat with IV? antibiotics -? follow cultures #Bacteremia- likely secondary to UTI -BC x2 posive with gram positive Cocci, final cultures pending -Add vanco. Continue ceftriaxone as above -BC x2 ordered -ID consulted -Echo ordered #? depression anxiety -? continue home medications #Peripheral neuropathy- stocking glove distribution -Check b12, folic acid, thyroid function -Likely secondary to etoh abuse -Follows with specialist outpt -Consider adding gabapentin low dose with gradual dose increase (took in past and experienced lightheadedness) once phenobarb completed #tinea pedis - continue nystatin ?DVT prophylaxis:? Lovenox Requires ongoing inpt stay for management of acute alcohol withdrawal on phenobarbitol per protocol requiring ongoing monitoring for withdrawal with CIWA scale. Time Spent With Patient Time: Total time managing care of this patient today 25 minutes. Quality Stroke Does the patient have a stroke diagnosis?: No VTE Prior VTE?: No VTE Risk Level:: Medical - moderate - high VTE Device Contraindication: Treatment Not Indicated VTE Drug Contraindication: N/A - Med Ordered
[2022-08-09 11:10] LABS: TSH reflex Free T4 2.81 uIU/mL (0.32-4.0)
[2022-08-09] MEDS: Thiamine HCL 100 MG TABLET PO (11:18)
[2022-08-09 11:58] LABS: Folate 8.3 ng/mL (> or = 4.0); Vitamin B12 475 pg/mL (200-900)
[2022-08-09] MEDS: Acamprosate Calcium 333 MG TABLET.DR 666 MG PO ×2 (14:29→20:31)
--- NOTE | 2022-08-09 15:14 | MHC.CM.PN ---
EMR REVIEWED, PT ADMITTED W/ETOH WITHDRAWAL AND REPORTS SHE WOULD LIKE DETOX/CSS PROGRAM AND WOULD LIKE TO REMAIN LOCAL IF POSSIBLE. PT REPORTS SHE IS INDEP W/CARE BUT FEELS SHE COULD USE A END FRAZER, PT INSTRUCTED TO SPEAK W/PCP AND/OR FILL OUT AN [facility] ONLINE W/[facility], PT USES A WALKER FOR DME, PFIZER X2, HCP ON FILE, PCP IS KERLINE GARNETT W/[facility] IN [place]. PT HAS THERAPIST AND PSYCHIATRIST W/[facility] AND A [facility] PHYSICAL EDUCATION AIDE AND REPORTS SHE ALSO SEE ADRIEL DE LA CRUZ D/C TO DETOX/CSS PROGRAM W/PT1 VS [facility] FOR TRANSPORT
[2022-08-09 15:55] VITALS: BP 117/67; PULSE 87; RESP 18; TEMP 36.2; O2SAT 95
[2022-08-09] MEDS: Calcium Carbonate 750 MG TAB.CHEW PO (16:58)
[2022-08-09 20:00] VITALS: BP 116/70; PULSE 89; RESP 18; TEMP 37.2; O2SAT 96
[2022-08-09] MEDS: Mirtazapine 7.5 MG TABLET PO (20:31)
[2022-08-09] MEDS: cefTRIAXone sodium 1 GM in 0.9 % Sodium Chloride 50 ML IV (22:50)
[2022-08-09] MEDS: Acetaminophen 325 MG TABLET 650 MG PO (22:58)
[2022-08-10] MEDS: Enoxaparin Sodium 40 MG/0.4 ML SYRINGE SUBCUT (02:53)
[2022-08-10 02:54] VITALS: BP 110/71; PULSE 81; RESP 20; TEMP 37.4; O2SAT 96
[2022-08-10 07:25] VITALS: BP 138/82; PULSE 92; RESP 18; TEMP 37.3; O2SAT 92
[2022-08-10 08:21] LABS: Creatinine Clr Calc Pharmacy 153.2; Estimated Glomerular Filt Rate > 60
[2022-08-10] MEDS: 0.9 % Sodium Chloride Flush 3 ML SYRINGE IVFLUSH ×3 (09:31→22:13)
[2022-08-10] MEDS: Folic Acid 1 MG TABLET PO (09:36)
[2022-08-10] MEDS: vancomycin HCL 1,250 MG in 0.9 % Sodium Chloride 250 ML 166.67 MG IV (09:36)
[2022-08-10] MEDS: Thiamine HCL 100 MG TABLET PO (09:37)
[2022-08-10] MEDS: Acamprosate Calcium 333 MG TABLET.DR 666 MG PO ×3 (09:37→22:12)
[2022-08-10] MEDS: Cholecalciferol (Vitamin D3) 25 MCG TABLET 50 MCG PO (09:37)
[2022-08-10] MEDS: Magnesium Oxide 400 MG TABLET PO (09:38)
[2022-08-10] MEDS: Cyanocobalamin (Vitamin B-12) 500 MCG TABLET PO (09:38)
[2022-08-10] MEDS: PHENobarbitaL 30 MG TABLET PO ×2 (09:39→22:12)
[2022-08-10] MEDS: nadoloL 20 MG TABLET PO (09:39)
[2022-08-10] MEDS: Nystatin Powder 15 GM BOTTLE 1 APPL TOPICAL ×2 (09:41→22:12)
--- NOTE | 2022-08-10 10:37 | MHC.RECOVRN ---
Met with pt in 378 after consult placed to CARE Team for alcohol use. Pt sitting in bed, awake, alert, easily engages in conversation. Pt reports having a recurrence x 1 month, drinking small 4 pack wine as well as 6 nips vodka daily. Pt reports having not eaten and feeling weak which is why pt presented to the ED. Pt has outpatient supports including psychiatrist, therapist, and middle school volleyball coach. Pt had been going to the [facility] and would like to resume care once discharged. Pt plans to return home, is not interested in inpatient [facility] tx at this time. Pt denies questions or concerns. Appt made for 08/12 at 11:15AM at [facility]. CM aware.
--- NOTE | 2022-08-10 11:25 | P.PNIM_ITS ---
Subjective Subjective Date of Service: 08/10/22 Interval History: Seen in follow up for acute alcohol withdrawal, seeking detox Interval history: No complaints. Tolerating diet, no n/v. Continues with neuropathy feet and hands b/l. Desires cessation from alcohol, not interested in inpt rehab, has quit in the past. Has recovery room nurse, therapist, good supports Physical Exam Vital Signs: Vital Signs: Last Vital Signs Temp 99.1 F 08/10/22 07:25 Pulse 92 08/10/22 07:25 Resp 18 08/10/22 07:25 BP 138/82 08/10/22 07:25 Pulse Ox 92 08/10/22 07:25 O2 Del Method 08/10/22 07:25 BMI result Body Mass Index 27.1 Appearing in no acute distress lung sounds are clear to auscultation heart regular rate rhythm, clear S1, S2 positive bowel sounds, abdomen is soft, nontender neuro patient is alert x3, no focal deficits Objective Data Active Medications Acamprosate (Acamprosate Calcium 333 Mg Tablet.) 666 mg PO TID [facility] Last Admin: 08/10/22 09:37 Dose: 666 mg Documented By: MEGAN Acetaminophen (Acetaminophen 325 Mg Tablet) 650 mg PO Q6H PRN PRN Reason: Pain, Mild (Pain Scale 1-3) Last Admin: 08/09/22 22:58 Dose: 650 mg Documented By: AMERICA Calcium Carbonate (Calcium Carbonate 750 Mg Tab.Chew) 750 mg PO Q4H PRN PRN Reason: heartburn Last Admin: 08/09/22 16:58 Dose: 750 mg Documented By: LUCILA Cyanocobalamin (Cyanocobalamin (Vitamin B-12) 500 Mcg Tablet) 500 mcg PO DAILY [facility] Last Admin: 08/10/22 09:38 Dose: 500 mcg Documented By: MEGAN Docusate Sodium (Docusate Sodium 100 Mg Capsule) 100 mg PO DAILY PRN PRN Reason: Constipation Enoxaparin Sodium (Enoxaparin Sodium 40 Mg/0.4 Ml Syringe) 40 mg SUBCUT Q24H [facility] Last Admin: 08/10/22 02:53 Dose: 40 mg Documented By: AMERICA Folic Acid (Folic Acid 1 Mg Tablet) 1 mg PO DAILY [facility] Last Admin: 08/10/22 09:36 Dose: 1 mg Documented By: MEGAN Ceftriaxone Sodium 1 gm/ (Sodium Chloride) 50 mls @ 100 mls/hr IV Q24H [facility] Last Infusion: 08/09/22 23:46 Dose: 0 mls/hr Documented By: AMERICA Vancomycin HCl 1,250 mg/ (Sodium Chloride) 250 mls @ 166.667 mls/hr IV Q12H [facility] Last Admin: 08/10/22 09:36 Dose: 166.67 mls/hr Documented By: MEGAN Magnesium Oxide (Magnesium Oxide 400 Mg Tablet) 400 mg PO DAILY [facility] Last Admin: 08/10/22 09:38 Dose: 400 mg Documented By: MEGAN Mirtazapine (Mirtazapine 7.5 Mg Tablet) 7.5 mg PO BEDTIME [facility] Last Admin: 08/09/22 20:31 Dose: 7.5 mg Documented By: AMERICA Nadolol (Nadolol 20 Mg Tablet) 20 mg PO DAILY [facility]; Protocol Last Admin: 08/10/22 09:39 Dose: 20 mg Documented By: MEGAN Nystatin (Nystatin Powder 15 Gm Bottle) 1 appl TOPICAL BID [facility]; Protocol Last Admin: 08/10/22 09:41 Dose: 1 appl Documented By: MEGAN Ondansetron HCl (Ondansetron Hcl 4 Mg/2 Ml Vial) 4 mg IVPUSH Q8H PRN PRN Reason: Nausea and Vomiting Oxycodone HCl (Oxycodone Hcl Immed Release 5 Mg Tablet) 5 mg PO Q6H PRN PRN Reason: Pain, Severe (Pain Scale 7-10) Last Admin: 08/08/22 18:38 Dose: 5 mg Documented By: LINDSEY Pharmacy Consult (Consult Rx Etoh Phenob Im/Po) 1 each MISCELLANE ONCE PRN; Protocol PRN Reason: Consult order Pharmacy Consult (Consult Rx Vancomycin Dosing) 1 each MISCELLANE DAILY PRN PRN Reason: Consult order Phenobarbital (Phenobarbital 30 Mg Tablet) 30 mg PO BID [facility] Stop: 08/11/22 21:01 Last Admin: 08/10/22 09:39 Dose: 30 mg Documented By: MEGAN Phenobarbital (Phenobarbital 15 Mg Tablet) 15 mg PO DAILY [facility] Stop: 08/13/22 09:01 Sodium Chloride (0.9 % Sodium Chloride Flush 3 Ml Syringe) 3 ml IVFLUSH QSHIFT [facility] Last Admin: 08/10/22 09:31 Dose: 3 ml Documented By: MEGAN Thiamine HCl (Thiamine Hcl 100 Mg Tablet) 100 mg PO DAILY [facility] Last Admin: 08/10/22 09:37 Dose: 100 mg Documented By: MEGAN Vitamin D (Cholecalciferol (Vitamin D3) 25 Mcg Tablet) 50 mcg PO DAILY [facility] Last Admin: 08/10/22 09:37 Dose: 50 mcg Documented By: MEGAN Labs CBC & Chem 7: 08/09/22 06:33 08/10/22 08:02 Labs: Laboratory Results - last 24 hr 08/09/22 08/10/22 06:33 08:02 Estim Creat Clear Calc 153.2 Estimated GFR > 60 Vitamin B12 475 Folate 8.3 Microbiology Microbiology Results: Microbiology 08/08/22 00:53 Blood Culture - Preliminary Blood - Venous Coag negative Staphylococcus 08/08/22 00:53 Blood Culture - Preliminary Blood - Venous Coag negative Staphylococcus 08/07/22 23:17 Urine Culture - Preliminary Urine clean catch - Urine bennett top Culture in progress. Assessment and Plan (1) UTI (urinary tract infection): Status: Acute (2) Alcoholism: Status: Acute (3) Weakness: Status: Acute (4) Bacteremia: Status: Acute Plan 51-year-old female with past medical history of alcohol abuse presents to the hospital with alcohol withdrawal Alcohol abuse with alcohol withdrawal syndrome mild tremors Continue phenobarbital protocol Folic acid, thiamine supplementation Continue acamprosate Seen and evaluated by recovery team offered outpatient resources Cdiff Tox B pos start oral vancomycin discuss with ID UTI Continue Rocephin Coag-negative staph Stop vancomycin Depression/ anxiety Continue home medications Peripheral neuropathy Likely secondary to alcohol abuse Consider outpatient follow-up Tinea pedis Continue nystatin DVT prophylaxis Lovenox Attending Dr. Velazquez Full code continue hospitalization for treatment of acute alcohol withdrawal on phenobarbital Time Spent With Patient Time: Total time managing care of this patient today ____ minutes. Quality Stroke Does the patient have a stroke diagnosis?: No VTE Prior VTE?: No VTE Risk Level:: Medical - moderate - high VTE Device Contraindication: Treatment Not Indicated VTE Drug Contraindication: N/A - Med Ordered
[2022-08-10] MEDS: vancomycin HCL 125 MG CAPSULE PO ×3 (12:27→23:59)
--- NOTE | 2022-08-10 13:50 | MHC.CM.PN ---
PLAN IS AWAITING BLOOD CULTURES PATIENT WANTS TO RETURN HOME TO CHECK ON HER HOME AND FURNACE AND DOES NOT WANT TO GO TO INPATIENT DETOX OR [facility] AT THIS TIME. CASE MANAGEMENT FOLLOWING
--- NOTE | 2022-08-10 15:34 | MHC.CM.PN ---
RECEIVED CALL FROM PATIENT'S OIL WELL PERFORATOR OPERATOR AT [facility] (JOYCE [phone]) HE IS ASKING FOR ANY UPDATES PRIOR TO DC. JOYCE IS AWARE THAT PATIENT WANTS TO GO HOME AND HAS A FOLLOW UP [facility] ON SUNDAY 08/12 @ [id number] ANY CHANGES, HE IS ASKING FOR A CALL. HE ALSO ASKS THAT DC SUMMARY BE FAXED TO [phone] ATT: PCP DR ANDER THOMASON
[2022-08-10 15:48] VITALS: BP 134/72; PULSE 90; RESP 18; TEMP 36.6; O2SAT 97
--- NOTE | 2022-08-10 16:37 | MHC.CLN ---
NUTRITION CONSULT FOR ETOH AND PRESSURE AREA. REDNESS TO SKIN NOTED. PATIENT STATED WEIGHT LOSS X ONE YEAR, DESIRABLE WEIGHT LOSS. DOES NOT WANT NUTRITIONAL SUPPLEMENT. STATED THAT EATING WELL.
[2022-08-10 19:15] VITALS: BP 119/75; PULSE 93; RESP 17; TEMP 36.5; O2SAT 98
[2022-08-10] MEDS: cefTRIAXone sodium 1 GM in 0.9 % Sodium Chloride 50 ML IV (22:13)
[2022-08-10] MEDS: Mirtazapine 7.5 MG TABLET PO (22:26)
--- NOTE | 2022-08-10 22:58 | W.PM.IDCN ---
History of Present Illness Data of Consult Service Date: 08/10/22 Requesting physician: Deb Crockett Primary Care Provider: Marino Goodson MD HPI Reason for consult: bacteremia,diarrhea She presents with nausea and vomiting for three days as well as alcohol withdrawal. She has no fever or chills. She has staph epi bactermia and Cdiff toxin positive. Review of Systems Review of Systems: Yes all other systems are reviewed and are negative PMFSH Past Medical History Medical History Alcohol abuse Alcoholic ketoacidosis Anxiety Dehydration Depression Hypertension Hypertension Family History Family History Other No family history of coronary artery disease Family history: reviewed and not pertinent Surgical History Surgical History No pertinent past surgical history Social History Social History Household Members: None Housing: House Do you presently have visiting nurse or other home services: No Alcohol intake: current Alcohol intake frequency: 3 or more drinks per day Alcohol type: hard liquor Patient Tobacco Use Status: Never used Tobacco Advance Directives Date on File: 05/18/22 service: No Current occupational status: employed Meds Allergies Allergy/AdvReac Type Severity Reaction Status Date / Time No Known Allergies Allergy Verified 08/08/22 02:46 Active Medications: Current Medications Acamprosate (Acamprosate Calcium 333 Mg Tablet.) 666 mg PO TID [facility] Last Admin: 08/10/22 22:12 Dose: 666 mg Acetaminophen (Acetaminophen 325 Mg Tablet) 650 mg PO Q6H PRN PRN Reason: Pain, Mild (Pain Scale 1-3) Last Admin: 08/09/22 22:58 Dose: 650 mg Calcium Carbonate (Calcium Carbonate 750 Mg Tab.Chew) 750 mg PO Q4H PRN PRN Reason: heartburn Last Admin: 08/09/22 16:58 Dose: 750 mg Cyanocobalamin (Cyanocobalamin (Vitamin B-12) 500 Mcg Tablet) 500 mcg PO DAILY [facility] Last Admin: 08/10/22 09:38 Dose: 500 mcg Docusate Sodium (Docusate Sodium 100 Mg Capsule) 100 mg PO DAILY PRN PRN Reason: Constipation Enoxaparin Sodium (Enoxaparin Sodium 40 Mg/0.4 Ml Syringe) 40 mg SUBCUT Q24H [facility] Last Admin: 08/10/22 02:53 Dose: 40 mg Folic Acid (Folic Acid 1 Mg Tablet) 1 mg PO DAILY [facility] Last Admin: 08/10/22 09:36 Dose: 1 mg Ceftriaxone Sodium 1 gm/ (Sodium Chloride) 50 mls @ 100 mls/hr IV Q24H [facility] Last Infusion: 08/10/22 22:49 Dose: Infused Magnesium Oxide (Magnesium Oxide 400 Mg Tablet) 400 mg PO DAILY [facility] Last Admin: 08/10/22 09:38 Dose: 400 mg Mirtazapine (Mirtazapine 7.5 Mg Tablet) 7.5 mg PO BEDTIME [facility] Last Admin: 08/10/22 22:26 Dose: 7.5 mg Nadolol (Nadolol 20 Mg Tablet) 20 mg PO DAILY [facility]; Protocol Last Admin: 08/10/22 09:39 Dose: 20 mg Nystatin (Nystatin Powder 15 Gm Bottle) 1 appl TOPICAL BID [facility]; Protocol Last Admin: 08/10/22 22:12 Dose: 1 appl Ondansetron HCl (Ondansetron Hcl 4 Mg/2 Ml Vial) 4 mg IVPUSH Q8H PRN PRN Reason: Nausea and Vomiting Oxycodone HCl (Oxycodone Hcl Immed Release 5 Mg Tablet) 5 mg PO Q6H PRN PRN Reason: Pain, Severe (Pain Scale 7-10) Last Admin: 08/08/22 18:38 Dose: 5 mg Pharmacy Consult (Consult Rx Etoh Phenob Im/Po) 1 each MISCELLANE ONCE PRN; Protocol PRN Reason: Consult order Phenobarbital (Phenobarbital 30 Mg Tablet) 30 mg PO BID [facility] Stop: 08/11/22 21:01 Last Admin: 08/10/22 22:12 Dose: 30 mg Phenobarbital (Phenobarbital 15 Mg Tablet) 15 mg PO DAILY [facility] Stop: 08/13/22 09:01 Sodium Chloride (0.9 % Sodium Chloride Flush 3 Ml Syringe) 3 ml IVFLUSH QSHIFT [facility] Last Admin: 08/10/22 22:13 Dose: 3 ml Thiamine HCl (Thiamine Hcl 100 Mg Tablet) 100 mg PO DAILY [facility] Last Admin: 08/10/22 09:37 Dose: 100 mg Vancomycin HCl (Vancomycin Hcl 125 Mg Capsule) 125 mg PO Q6H [facility] Last Admin: 08/10/22 17:33 Dose: 125 mg Vitamin D (Cholecalciferol (Vitamin D3) 25 Mcg Tablet) 50 mcg PO DAILY [facility] Last Admin: 08/10/22 09:37 Dose: 50 mcg Home Medications Medication Instructions Recorded Confirmed Last Taken Type cholecalciferol (vitamin D3) 50 1 cap PO DAILY 05/17/22 08/07/22 Unknown History mcg (2,000 unit) capsule cyanocobalamin (vitamin B-12) 500 1 tab PO DAILY 05/17/22 08/07/22 Unknown History mcg tablet (Vitamin B-12) magnesium oxide 400 mg (241.3 mg 1 tab PO DAILY 05/17/22 08/07/22 Unknown History magnesium) tablet nadolol 20 mg tablet 20 mg PO DAILY 08/07/22 08/07/22 Unknown History Physical Exam Vital Signs: Vital Signs: Last Vital Signs Temp 97.7 F 08/10/22 19:15 Pulse 93 08/10/22 19:15 Resp 17 08/10/22 19:15 BP 119/75 08/10/22 19:15 Pulse Ox 98 08/10/22 19:15 O2 Del Method 08/10/22 19:15 BMI result Body Mass Index 27.1 Const: General: cooperative HEENT: Head: Yes normal to inspection Face and sinus: Yes normal facial exam Mouth: Normal oral and palatal mucosa present Teeth and gingiva: dentition normal Eyes: General: appearance normal, both eyes and all related structures Pupils: Equal, round and reactive pupils present Resp: Effort & Inspection: normal respiratory effort Cardio: Rate: regular rate Rhythm: regular rhythm GI: Palpation (GI): Soft to palpation and nontender : General: Yes no CVA tenderness Back/Spine/Pelvis: Back: no CVA tenderness Skin: General skin exam: no rashes or lesions noted Neuro: General: moves all extremities Cranial nerves: Yes Equal, round and reactive pupils present Extrem: General: Yes normal to inspection Psych: Appearance: grossly normal Results Labs CBC & Chem 7: 08/09/22 06:33 08/10/22 08:02 Labs: BMP 08/10/22 08:02 Creatinine 0.49 L Microbiology Microbiology Results: Microbiology 08/09/22 14:56 Blood - Venous Blood Culture - Preliminary No growth after 24 hours. 08/09/22 14:56 Blood - Venous Blood Culture - Preliminary No growth after 24 hours. 08/07/22 23:17 Urine clean catch - Urine bennett top Urine Culture - Final 08/08/22 00:53 Blood - Venous Blood Culture - Preliminary Coag negative Staphylococcus 08/08/22 00:53 Blood - Venous Blood Culture - Preliminary Coag negative Staphylococcus Assessment and Plan (1) Bacteremia: Status: Acute staph epi is contaminant Cdiff is also probably issue as well (2) Alcohol withdrawal syndrome: Status: Acute Plan Would not give antibiotics for bacteremia as likely contaminant Would give po Vancomycin 125 mg qid for 10 days Time Spent With Patient Time: Total time managing care of this patient today ____ minutes.
[2022-08-11 04:00] VITALS: BP 124/68; PULSE 92; RESP 20; TEMP 36.4; O2SAT 94
[2022-08-11] MEDS: Enoxaparin Sodium 40 MG/0.4 ML SYRINGE SUBCUT (04:05)
[2022-08-11] MEDS: vancomycin HCL 125 MG CAPSULE PO ×2 (05:01→12:58)
[2022-08-11 08:00] VITALS: BP 120/62; PULSE 94; RESP 18; TEMP 37
[2022-08-11 08:02] LABS: Creatinine Clr Calc Pharmacy 147.1; Estimated Glomerular Filt Rate > 60
[2022-08-11 08:04] LABS: Anion Gap 12 (12-20); Blood Urea Nitrogen 5 mg/dL (9-16); Calcium 8.8 mg/dL (8.4-10.2); Carbon Dioxide 24 mmol/L (22-29); Chloride 101 mmol/L (96-108); Creatinine Clr Calc Pharmacy 150.1; Estimated Glomerular Filt Rate > 60; Glucose Random 98 mg/dL (60-115); Potassium 3.3 mmol/L (3.3-5.1); Sodium 134 mmol/L (135-145)
[2022-08-11 08:09] LABS: Vancomycin Trough < 3.0 mcg/mL (10.0-20.0)
[2022-08-11] MEDS: Magnesium Oxide 400 MG TABLET PO (08:46)
[2022-08-11] MEDS: Cholecalciferol (Vitamin D3) 25 MCG TABLET 50 MCG PO (08:46)
[2022-08-11] MEDS: Cyanocobalamin (Vitamin B-12) 500 MCG TABLET PO (08:46)
[2022-08-11] MEDS: PHENobarbitaL 30 MG TABLET PO (08:47)
[2022-08-11] MEDS: nadoloL 20 MG TABLET PO (08:47)
[2022-08-11] MEDS: Folic Acid 1 MG TABLET PO (08:47)
[2022-08-11] MEDS: Acamprosate Calcium 333 MG TABLET.DR 666 MG PO (08:47)
[2022-08-11] MEDS: Thiamine HCL 100 MG TABLET PO (08:47)
[2022-08-11] MEDS: 0.9 % Sodium Chloride Flush 3 ML SYRINGE IVFLUSH (08:48)
[2022-08-11 09:33] VITALS: BP 120/62; PULSE 94
--- NOTE | 2022-08-11 09:49 | PM.DS ---
DS: Providers Provider Date of Service: 08/11/22 Date of admission: 08/08/22 01:40 Primary care physician: Marino Goodson MD Consults: 08/08/22 06:33 Consult to Care Team Routine Comment: Reason for consultation: alcohol abuse, wants detox 08/08/22 15:04 Consult to Care Team Routine Comment: Reason for consultation: etoh 08/09/22 14:12 Consult to Infectious Diseases Routine Consulting Provider: Ling Coreas Reason for consultation: bacteremia Attending physician on discharge: Bandar Velazquez Discharging clinician: Deb Crockett DS: Diagnosis Discharge Diagnosis (1) Bacteremia: Status: Acute (2) Alcohol withdrawal syndrome: Status: Acute DS: Summary Hospital Course Hospital Course: History and physical per admitting provider 51-year-old female with past medical history of alcohol abuse, depression, anxiety, hypertension, who presents to the hospital with complaints of relapsing in took alcohol abuse, wanting detox, also complaining of severe weakness after having almost close to no oral intake except alcohol for the past few days, reports some nausea, intermittent episodes of vomiting, and loose stools for the past few days.? Patient reports that she got COVID about a month ago she stopped taking her psych meds as well as relapse into alcohol abuse.? She drinks daily, she drinks about 6 nebs of vodka as well as 4-6? small bottles of wine.? Patient denies any chest pain, no shortness of breath, no abdominal pain, urinary frequency, no lower extremity edema.? Patient reports currently being in withdrawal from alcohol.? She does complain of chronic neuropathic pain. on arrival to the ED patient hemodynamically stable with no significant abnormal vitals labs are found to be significant for WBC count of 4.6, INR of? 1.2, sodium 134, chloride of 94, total bili of 3.5 which is around her baseline, AST of 134, ALT of 55, alk-phos of 171, which is similar to her previous, UA positive for leukocyte Estrace and WBC, UDS negative for any drugs, alcohol level of 202, viral serology negative, Patient started on phenobarb . Alcohol abuse with alcohol withdrawal syndrome mild tremors, resolved Treated with phenobarbital protocol Folic acid, thiamine supplementation Continue acamprosate Seen and evaluated by recovery team offered outpatient resources Cdiff Tox B pos Started on oral vancomycin for total 10 days UTI Treated with IV Rocephin, home with Ceftin for 4 more days Coag-negative staph Initially treated with vancomycin, discussed with ID, contaminant, antibiotic stopped Depression/ anxiety Continue home medications Peripheral neuropathy Likely secondary to alcohol abuse Consider outpatient follow-up Tinea pedis Treated with nystatin Time Spent with Patient Time attestation: Total time managing care of this patient today ____ minutes. Discharge coordination time: Greater than 30 minutes Quality: Safe Use of Opioids Does Pt have an Active Cancer Diagnosis on the Problem List?: No Quality: Stroke Does the patient have a stroke diagnosis?: No Physical Exam Vital Signs: Vital Signs: Last Vital Signs Temp 98.6 F 08/11/22 08:00 Pulse 94 08/11/22 09:33 Resp 18 08/11/22 08:00 BP 120/62 08/11/22 09:33 Pulse Ox 94 08/11/22 04:00 O2 Del Method 08/11/22 08:00 BMI result Body Mass Index 27.1 Appearing in no acute distress head is normocephalic atraumatic eyes pupils are PERRLA sclera is anicteric mouth throat mucous membranes are intact and moist neck is supple no lymphadenopathy, no JVD noted lung sounds are clear to auscultation heart regular rate rhythm, clear S1, S2 positive bowel sounds, abdomen is soft, nontender neuro patient is alert x3, no focal deficits DS: Data Data Completed and Pending Completed studies during hospitalization [Text1]: Procedures Detoxification Services for Substance Abuse Treatment (05/17/22) Labs on day of discharge: Laboratory Results - last 24 hr 08/11/22 08/11/22 08/11/22 07:07 07:07 07:07 Sodium 134 L Potassium 3.3 Chloride 101 Carbon Dioxide 24 Anion Gap 12 BUN 5 L Creatinine 0.51 0.50 Estim Creat Clear Calc 147.1 150.1 Estimated GFR > 60 > 60 Random Glucose 98 Calcium 8.8 Vancomycin Trough < 3.0 L Preliminary micro results at discharge 08/08/22 00:53 Blood Culture - Preliminary Blood - Venous Coag negative Staphylococcus 08/08/22 00:53 Blood Culture - Preliminary Blood - Venous Coag negative Staphylococcus 08/09/22 14:56 Blood Culture - Preliminary Blood - Venous No growth after 24 hours. 08/09/22 14:56 Blood Culture - Preliminary Blood - Venous No growth after 24 hours. Discharge Plan Discharge Anticipated Discharge Date/Time: 08/11/22 09:16 Patient Disposition: Home, Self-Care Discharge Diagnosis: Alcohol abuse with withdrawal C diff UTI Referrals: Ling Coreas MD [Physician] - 1 Week (YOU HAVE A 08/12/22 APPOINTMENT AT THE [facility] AT 11:15 A.M.) Marino Goodson MD [Primary Care Provider] - 1 Week Discharge Medications: New vancomycin 125 mg Capsule 125 mg PO Q6H Qty: 36 0RF cefuroxime axetil 500 mg tablet 500 mg PO BID Qty: 8 0RF Continued magnesium oxide 400 mg (241.3 mg magnesium) tablet 1 tab PO DAILY cyanocobalamin (vitamin B-12) [Vitamin B-12] 500 mcg tablet 1 tab PO DAILY cholecalciferol (vitamin D3) 50 mcg (2,000 unit) capsule 1 cap PO DAILY nadolol 20 mg Tablet 20 mg PO DAILY acamprosate 333 mg tablet,delayed release (DR/EC) 666 mg PO TID Qty: 180 0RF thiamine HCl (vitamin B1) 100 mg tablet 100 mg PO DAILY Qty: 30 0RF folic acid 1 mg tablet 1 mg PO DAILY Qty: 30 1RF mirtazapine 7.5 mg tablet 7.5 mg PO BEDTIME Qty: 30 0RF Discharge Orders: Discharge Order (Routine); Ordered 08/11/22 Ordered By: Deb Crockett Diet: Advance to usual diet Activity on Discharge: As tolerated Stand Alone Forms: Patient Portal Discharge page Activity Restrictions/Additional Instructions: Preventing the spread of infection to others: You, and those caring for you, also need to follow strict hygiene measures if you have?C. difficile?infection. This will help to prevent the spread of infection to others. If you are in hospital, the following measures are usually suggested: If possible, you should have your own room, washbasin and toilet facilities. You should regularly wash your hands thoroughly, especially after each time you have been to the toilet. Those caring for you should wear disposable gloves and aprons and wash their hands with soap and water before and after attending to you. Hand gel is not an alternative to soap and water but may be used after hand washing. This is because hand gel may not kill the?C. difficile?spores. Toilets, surfaces, floors, bedpans, bedding, etc, should be washed regularly. Visitors should also wear disposable gloves and aprons and wash their hands as they enter and leave your room. Care Plan Goals: Stop drinking alcohol, fine community resources for help Health Concerns: Alcohol abuse with withdrawal C diff UTI Plan of Treatment: Follow-up with primary care provider as needed Take all medications as prescribed Your been diagnosed with C difficile infection and had been placed on an oral medication called vancomycin for this. Please see precautions above Assessment: See discharge summary
--- NOTE | 2022-08-11 12:00 | W.MHC.F2F ---
Service Date Service Date: 08/11/22 Encounter Date of encounter: 08/11/22 Reasons for Services Signs and symptoms assessed: Alcohol withdrawal syndrome, UTI Reason for physical therapy: home safety and mobility Homebound: Leaving the home is medically contraindicated at this time without the asist of a device and/or another person due th the listed conditions above and below. Reason homebound: unsteady gait / fall risk Certification: Based on the above findings, I certify that this patient is confined to the home and needs intermittent chcf care, physical therapy and/or speech therapy, or continues to need occupational therapy. The patient is under my care, and I have initiated the establishment of the plan of care. The patient will be followed by a physician who will periodically review the plan of care. Time Spent With Patient Time: Total time managing care of this patient today ____ minutes.
--- NOTE | 2022-08-11 13:29 | MHC.CM.PN ---
CHANGE OF PLANS. PATIENT IS CURRENTLY ACTIVE WITH [facility] AND RECEIVES HOME O.T. SHE CANNOT RECEIVE HOME P.T. SHE IS NOT HOMEBOUND. NA MADE AWARE
--- NOTE | 2022-08-11 13:34 | MHC.CM.PN ---
DC SUMMARY FAXED TO DR ANDER THOMASON'S OFFICE AT [phone]
[2022-08-11] MEDS: ondansetron HCL 4 MG/2 ML VIAL IVPUSH (14:33)
[2022-08-11] MEDS: Calcium Carbonate 750 MG TAB.CHEW PO (14:33)
--- NOTE | 2022-08-11 15:46 | MHC.CM.PN ---
PATIENT STATES THAT SHE HAS TRANSPORT ARRANGED RN AND UNIT MADE AWARE
== END 2022-08-11 15:54 | disposition home or self-care (01) | DRG 463 ==
LOC: HO.ED 08-08 00:32 → HO.EDOVER 08-08 01:47 → HO.S3 08-08 02:14
PROVIDERS: Hospitalist; Physician Assistant; Physician Assistant Medical; Admitting Provider Internal Medicine; Emergency Provider Emergency Medicine; PCP Internal Medicine; Visit Provider Nurse Practitioner Acute Care
DX: N39.0 Urinary tract infection, site not specified (principal); L89.302 Pressure ulcer of unspecified buttock, stage 2; A04.72 Enterocolitis due to Clostridium difficile, not specified as recurrent; G62.1 Alcoholic polyneuropathy; F10.229 Alcohol dependence with intoxication, unspecified; F10.239 Alcohol dependence with withdrawal, unspecified; B35.3 Tinea pedis; F32.A Depression, unspecified; F41.9 Anxiety disorder, unspecified; Y90.7 Blood alcohol level of 200-239 mg/100 ml; I10 Essential (primary) hypertension; Z20.822 Contact with and (suspected) exposure to COVID-19; Z91.14 Patient's other noncompliance with medication regimen; Z86.16 Personal history of COVID-19; Z79.899 Other long term (current) drug therapy
CPT/HCPCS: 0241U; 36415; 71045; 80048; 80053; 80202; 80307; 81001; 82077; 82272; 82565; 82607; 82746; 83036; 83605; 83690; 83735; 84443; 85025; 85027; 85610; 87040; 87077; 87086; 87205; 87324; 87493; 97162; 99285; J0696; J1650; J2270; J2405; J2560; J2765; J3370; J3411

== ENCOUNTER → 2022-08-18 10:50 | Outpatient (BNVA) | payer MEDICAID, SELFPAY | PROVIDERS: PCP Internal Medicine; Visit Provider Nurse Practitioner Psychiatric/Mental Health | DX: F10.20 Alcohol dependence, uncomplicated (principal) | CPT/HCPCS: 99212 ==

== ENCOUNTER → 2022-09-02 10:49 | Outpatient (BNVA) | payer MEDICAID, SELFPAY | PROVIDERS: PCP Internal Medicine; Visit Provider Nurse Practitioner Psychiatric/Mental Health | DX: F10.20 Alcohol dependence, uncomplicated (principal) | CPT/HCPCS: 99212 ==

== ENCOUNTER 2022-09-22 12:43 | Emergency (ER) | payer MEDICAID, SELFPAY ==
[2022-09-22 14:17] VITALS: BP 150/94; PULSE 83; RESP 16; TEMP 36.6; O2SAT 99; BMI 26.6
--- NOTE | 2022-09-22 14:21 | ED.GENADULT ---
HPI - General Adult General Chief complaint: ETOH/Substance Use <YASMINE Bowman - Last Filed: 09/28/22 12:02> Stated complaint: detoxing <YASMINE Bowman - Last Filed: 09/28/22 12:02> Time Seen by Provider: 09/22/22 14:57 <YASMINE Bowman - Last Filed: 09/28/22 12:02> Source: patient <Jennifer Narvaez MD - Last Filed: 09/22/22 21:27> Mode of arrival: ambulatory <Jennifer Narvaez MD - Last Filed: 09/22/22 21:27> History of Present Illness HPI narrative: 51-year-old female who has known history alcohol/substance use presents with reports a 10 to detox from alcohol and states that her last drink was yesterday at 18:00. Patient is concerned about seizures although she denies any prior history of any seizure activity and is unsure of the last time that she is detoxed. She does not but she has underlying liver disease and has had multiple episodes of nausea and vomiting and has known varices but denies any hematemesis. Patient also describes incontinence. <Jennifer Narvaez MD - Last Filed: 09/22/22 21:27> Related Data Home medications: Home Medications Medication Instructions Recorded Confirmed cholecalciferol (vitamin D3) 50 1 cap PO DAILY 05/17/22 09/22/22 mcg (2,000 unit) capsule cyanocobalamin (vitamin B-12) 500 1 tab PO DAILY 05/17/22 09/22/22 mcg tablet (Vitamin B-12) magnesium oxide 400 mg (241.3 mg 1 tab PO DAILY 05/17/22 09/22/22 magnesium) tablet nadolol 20 mg tablet 20 mg PO DAILY 08/07/22 09/22/22 Previous Rx's Medication Instructions Recorded mirtazapine 7.5 mg tablet 7.5 mg PO BEDTIME #30 tabs 06/03/22 cefdinir 300 mg capsule 300 mg PO BID 5 days #10 caps 09/22/22 folic acid 1 mg tablet 1 mg PO DAILY #30 tabs 09/25/22 thiamine HCl (vitamin B1) 100 mg 100 mg PO DAILY #30 tabs 09/25/22 tablet acamprosate 333 mg tablet,delayed 666 mg PO TID #180 tabs 09/28/22 release <YASMINE Bowman - Last Filed: 09/28/22 12:02> Allergies/adverse reactions: Allergies Allergy/AdvReac Type Severity Reaction Status Date / Time No Known Allergies Allergy Verified 09/25/22 11:35 <YASMINE Bowman - Last Filed: 09/28/22 12:02> Review of Systems Review of Systems: Pertinent positives and negatives as stated in HPI <Jennifer Narvaez MD - Last Filed: 09/22/22 21:27> [facility] Past Medical History Source: nursing notes reviewed <Jennifer Narvaez MD - Last Filed: 09/22/22 21:27> Medical History: Medical History (Updated 09/25/22 @ 16:35 by Karely Vallejo CNP) Alcohol abuse Alcohol use disorder, severe, dependence Alcoholic ketoacidosis Alcoholism Anxiety Dehydration Depression Hypertension Hypertension <YASMINE Bowman - Last Filed: 09/28/22 12:02> Surgical History: Surgical History No pertinent past surgical history <YASMINE Bowman - Last Filed: 09/28/22 12:02> Family History Family History: Family History Other No family history of coronary artery disease <YASMINE Bowman - Last Filed: 09/28/22 12:02> Social History Social History: Social History Household Members: None Housing: House Do you presently have visiting nurse or other home services: No Alcohol intake: current Alcohol intake frequency: 3 or more drinks per day Alcohol type: hard liquor Patient Tobacco Use Status: Never used Tobacco Advance Directives Date on File: 05/18/22 service: No Current occupational status: employed <YASMINE Bowman - Last Filed: 09/28/22 12:02> Physical Exam ED Vital Signs: Vital Signs - 24 hr 09/22/22 14:17 09/22/22 15:38 09/22/22 19:43 Temperature 97.9 F 98.9 F Pulse Rate 83 74 72 Respiratory Rate 16 15 15 Blood Pressure 150/94 H 153/90 H 143/83 H Pulse Oximetry 99 96 96 Oxygen Delivery Method Room Air Room Air Room Air 09/23/22 00:00 09/23/22 02:17 09/23/22 05:33 Temperature 98.9 F 98.8 F Pulse Rate 84 80 91 Respiratory Rate 18 16 17 Blood Pressure 145/81 H 120/73 Pulse Oximetry 96 96 98 Oxygen Delivery Method Room Air Room Air Room Air 09/23/22 10:46 Temperature Pulse Rate 95 Respiratory Rate 14 Blood Pressure 141/88 H Pulse Oximetry 96 Oxygen Delivery Method Room Air BMI result Body Mass Index 26.6 <YASMINE Bowman - Last Filed: 09/28/22 12:02> Vital Signs - 24 hr 09/22/22 14:17 09/22/22 15:38 09/22/22 19:43 Temperature 97.9 F 98.9 F Pulse Rate 83 74 72 Respiratory Rate 16 15 15 Blood Pressure 150/94 H 153/90 H 143/83 H Pulse Oximetry 99 96 96 Oxygen Delivery Method Room Air Room Air Room Air 09/23/22 00:00 09/23/22 02:17 09/23/22 05:33 Temperature 98.9 F 98.8 F Pulse Rate 84 80 91 Respiratory Rate 18 16 17 Blood Pressure 145/81 H 120/73 Pulse Oximetry 96 96 98 Oxygen Delivery Method Room Air Room Air Room Air 09/23/22 10:46 Temperature Pulse Rate 95 Respiratory Rate 14 Blood Pressure 141/88 H Pulse Oximetry 96 Oxygen Delivery Method Room Air BMI result Body Mass Index 26.6 VITAL SIGNS: Reviewed. GENERAL: Well developed, well nourished, in no acute distress. HEAD: Normocephalic/atraumatic, EYES: PERRLA, EOMI, bilateral conjunctival injection EARS: Ext canals without abnormality OROPHARYNX: no oral lesions noted, posterior pharynx clear NECK: Supple, no adenopathy LUNGS: Normal breath sounds. No adventitious sounds or accessory muscle use. SpO2<96> CARDIOVASCULAR: Regular rate and rhythm without noted murmurs, no JVD or lower extremity edema. ABDOMEN: Soft, non-tender, non-distended with bowel sounds. MUSCULOSKELETAL: No tenderness, deformities, or effusions noted on gross inspection. EXTREMITIES: No cyanosis, clubbing or edema. SKIN: Inspection of the skin reveals no rashes NEUROLOGIC: Alert and oriented x 4. 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 <Jennifer Narvaez MD - Last Filed: 09/22/22 21:27> Vital Signs - 24 hr 09/22/22 14:17 09/22/22 15:38 09/22/22 19:43 Temperature 97.9 F 98.9 F Pulse Rate 83 74 72 Respiratory Rate 16 15 15 Blood Pressure 150/94 H 153/90 H 143/83 H Pulse Oximetry 99 96 96 Oxygen Delivery Method Room Air Room Air Room Air 09/23/22 00:00 09/23/22 02:17 09/23/22 05:33 Temperature 98.9 F 98.8 F Pulse Rate 84 80 91 Respiratory Rate 18 16 17 Blood Pressure 145/81 H 120/73 Pulse Oximetry 96 96 98 Oxygen Delivery Method Room Air Room Air Room Air 09/23/22 10:46 Temperature Pulse Rate 95 Respiratory Rate 14 Blood Pressure 141/88 H Pulse Oximetry 96 Oxygen Delivery Method Room Air BMI result Body Mass Index 26.6 <Radha Fung CNP - Last Filed: 09/23/22 12:39> Course Course Course Narrative: RME: 51 yold female presents to the ED want detox from alcohol and states last drink was yesterday afternoon. Patient states feeling withdrawal sick. labs ordered. Care consult placed. <YASMINE Bowman - Last Filed: 09/28/22 12:02> Reevaluation(s) Reevaluation #1: Physician observation ends at this time. Patient was evaluated by care team/assistant women's tennis coach, patient unable to be placed at detox facilities, due to prior admissions requiring higher level of care. Patient is agreeable plan of care for discharge home, follow-up outpatient at the [facility] Wednesday09/25/2022. <Radha Fung CNP - Last Filed: 09/23/22 12:39> Time: 12:38 <Radha Fung CNP - Last Filed: 09/23/22 12:39> Medications Administered Discontinued Medications Generic Name Dose Route Start Last Admin Trade Name Freq PRN Reason Stop Dose Admin Cyanocobalamin 500 mcg 09/23/22 11:45 09/23/22 13:31 Cyanocobalamin (Vitamin B-12) 500 Mcg Tablet PO 500 mcg DAILY LEORA Administration Folic Acid 1 mg 09/23/22 11:45 09/23/22 12:08 Folic Acid 1 Mg Tablet PO 1 mg DAILY LEORA Administration Sodium Chloride 1,000 mls @ 999 mls/hr 09/22/22 15:45 09/22/22 17:03 Ns IV 09/22/22 16:45 Infused .Q1H1M LEORA Infusion Magnesium Sulfate/Dextrose 1 gm in 100 mls @ 100 mls/hr 09/22/22 16:23 09/22/22 20:14 Magnesium Sulfate/D5w IV 09/22/22 17:22 Infused ONCE ONE Infusion Ceftriaxone Sodium 1 gm/ 50 mls @ 100 mls/hr 09/22/22 18:02 09/22/22 19:23 Sodium Chloride IV 09/22/22 18:31 Infused ONCE ONE Infusion Ibuprofen 600 mg 09/23/22 03:22 09/23/22 04:55 Ibuprofen 600 Mg Tablet PO 09/23/22 03:23 600 mg ONCE ONE Administration Lorazepam 1 mg 09/23/22 01:11 09/23/22 02:13 Lorazepam 1 Mg Tablet PO 09/23/22 01:12 1 mg ONCE ONE Administration Magnesium Oxide 400 mg 09/23/22 11:45 09/23/22 12:08 Magnesium Oxide 400 Mg Tablet PO 400 mg DAILY LEORA Administration Morphine Sulfate 1 mg 09/22/22 20:35 09/22/22 21:01 Morphine Sulfate 2 Mg/Ml Cartridge IVPUSH 09/22/22 20:36 1 mg ONCE ONE Administration Protocol Nadolol 20 mg 09/23/22 11:45 09/23/22 13:32 Nadolol 20 Mg Tablet PO 20 mg DAILY LEORA Administration Protocol Ondansetron HCl 4 mg 09/22/22 16:42 09/22/22 17:53 Ondansetron Hcl 4 Mg/2 Ml Vial IVPUSH 09/22/22 16:43 4 mg ONCE ONE Administration Vitamin D 50 mcg 09/23/22 11:45 09/23/22 12:08 Cholecalciferol (Vitamin D3) 25 Mcg Tablet PO 50 mcg DAILY LE[facility]A Administration <YASMINE Bowman - Last Filed: 09/28/22 12:02> Medications Administered Discontinued Medications Generic Name Dose Route Start Last Admin Trade Name Freq PRN Reason Stop Dose Admin Cyanocobalamin 500 mcg 09/23/22 11:45 09/23/22 13:31 Cyanocobalamin (Vitamin B-12) 500 Mcg Tablet PO 500 mcg DAILY LEORA Administration Folic Acid 1 mg 09/23/22 11:45 09/23/22 12:08 Folic Acid 1 Mg Tablet PO 1 mg DAILY [facility]A Administration Sodium Chloride 1,000 mls @ 999 mls/hr 09/22/22 15:45 09/22/22 17:03 Ns IV 09/22/22 16:45 Infused .Q1H1M [facility] Infusion Magnesium Sulfate/Dextrose 1 gm in 100 mls @ 100 mls/hr 09/22/22 16:23 09/22/22 20:14 Magnesium Sulfate/D5w IV 09/22/22 17:22 Infused ONCE ONE Infusion Ceftriaxone Sodium 1 gm/ 50 mls @ 100 mls/hr 09/22/22 18:02 09/22/22 19:23 Sodium Chloride IV 09/22/22 18:31 Infused ONCE ONE Infusion Ibuprofen 600 mg 09/23/22 03:22 09/23/22 04:55 Ibuprofen 600 Mg Tablet PO 09/23/22 03:23 600 mg ONCE ONE Administration Lorazepam 1 mg 09/23/22 01:11 09/23/22 02:13 Lorazepam 1 Mg Tablet PO 09/23/22 01:12 1 mg ONCE ONE Administration Magnesium Oxide 400 mg 09/23/22 11:45 09/23/22 12:08 Magnesium Oxide 400 Mg Tablet PO 400 mg DAILY [facility]A Administration Morphine Sulfate 1 mg 09/22/22 20:35 09/22/22 21:01 Morphine Sulfate 2 Mg/Ml Cartridge IVPUSH 09/22/22 20:36 1 mg ONCE ONE Administration Protocol Nadolol 20 mg 09/23/22 11:45 09/23/22 13:32 Nadolol 20 Mg Tablet PO 20 mg DAILY [facility]A Administration Protocol Ondansetron HCl 4 mg 09/22/22 16:42 09/22/22 17:53 Ondansetron Hcl 4 Mg/2 Ml Vial IVPUSH 09/22/22 16:43 4 mg ONCE ONE Administration Vitamin D 50 mcg 09/23/22 11:45 09/23/22 12:08 Cholecalciferol (Vitamin D3) 25 Mcg Tablet PO 50 mcg DAILY [facility]A Administration <Jennifer Narvaez MD - Last Filed: 09/22/22 21:27> Medications Administered Discontinued Medications Generic Name Dose Route Start Last Admin Trade Name Freq PRN Reason Stop Dose Admin Cyanocobalamin 500 mcg 09/23/22 11:45 09/23/22 13:31 Cyanocobalamin (Vitamin B-12) 500 Mcg Tablet PO 500 mcg DAILY [facility]A Administration Folic Acid 1 mg 09/23/22 11:45 09/23/22 12:08 Folic Acid 1 Mg Tablet PO 1 mg DAILY [facility]A Administration Sodium Chloride 1,000 mls @ 999 mls/hr 09/22/22 15:45 09/22/22 17:03 Ns IV 09/22/22 16:45 Infused .Q1H1M [facility] Infusion Magnesium Sulfate/Dextrose 1 gm in 100 mls @ 100 mls/hr 09/22/22 16:23 09/22/22 20:14 Magnesium Sulfate/D5w IV 09/22/22 17:22 Infused ONCE ONE Infusion Ceftriaxone Sodium 1 gm/ 50 mls @ 100 mls/hr 09/22/22 18:02 09/22/22 19:23 Sodium Chloride IV 09/22/22 18:31 Infused ONCE ONE Infusion Ibuprofen 600 mg 09/23/22 03:22 09/23/22 04:55 Ibuprofen 600 Mg Tablet PO 09/23/22 03:23 600 mg ONCE ONE Administration Lorazepam 1 mg 09/23/22 01:11 09/23/22 02:13 Lorazepam 1 Mg Tablet PO 09/23/22 01:12 1 mg ONCE ONE Administration Magnesium Oxide 400 mg 09/23/22 11:45 09/23/22 12:08 Magnesium Oxide 400 Mg Tablet PO 400 mg DAILY LEORA Administration Morphine Sulfate 1 mg 09/22/22 20:35 09/22/22 21:01 Morphine Sulfate 2 Mg/Ml Cartridge IVPUSH 09/22/22 20:36 1 mg ONCE ONE Administration Protocol Nadolol 20 mg 09/23/22 11:45 09/23/22 13:32 Nadolol 20 Mg Tablet PO 20 mg DAILY LEORA Administration Protocol Ondansetron HCl 4 mg 09/22/22 16:42 09/22/22 17:53 Ondansetron Hcl 4 Mg/2 Ml Vial IVPUSH 09/22/22 16:43 4 mg ONCE ONE Administration Vitamin D 50 mcg 09/23/22 11:45 09/23/22 12:08 Cholecalciferol (Vitamin D3) 25 Mcg Tablet PO 50 mcg DAILY LEORA Administration <Radha Fung CNP - Last Filed: 09/23/22 12:39> Medical Decision Making Medical Decision Making MDM Narrative: 51-year-old female with presentation for requesting inpatient detox, on review of all investigations my interpretation is patient has evidence dehydration and low magnesium secondary to underlying alcohol use disorder and liver labs consistent with known cirrhosis. Patient received 1 L of IV fluids as well as 1 g of magnesium sulfate. Otherwise, viral testing is negative I do not suspect acute withdrawal at this time and the underlying difficulty with ambulation has contributed to patient's incontinence that is not a primary incontinence issue but more of a lack of being able to get up and go to the bathroom within a reasonable time. 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 Patient is otherwise medically cleared for alcohol detox placement. On discussion with the care team this will likely need to occur with [facility] who has a higher level of medical care Section. On arrival of assistant women's tennis coach at 18:00, [facility] is declining at this time stating that they have had difficulty with this patient previously. There requiring documentation of patient's oxygen requirement stating that last time she required oxygen. Patient then informed the assistant women's tennis coach that she wanted to go home because she did not want to go to some place open quotes too far?. However, I went in to speak to her she again wants to stay in the hospital although there is not a medical indication for her admission here at this time. She agrees to go to [facility]. Repeat lab work demonstrates that her electrolytes and dehydration as well as magnesium have significantly improved after intervention. Patient appears to be otherwise comfortable and is tolerating oral intake. 0: Patient states that she is okay with going to [facility], the assistant women's tennis coach submitted the paperwork to [facility] and the nursing staff said that although patient would not be a transfer tonight they do say that she could be transferred in the morning. I placed a consult for medication reconciliation for this patient, she has already had antibiotics for her UTI and I will place a script in the discharge instructions for the remaining course. 4: Patient placed in physician observation because the patient needed more time for placement in inpatient detox for alcohol. At the time observation was started the patient's vital signs were stable, patient is alert and oriented in no evidence acute withdrawals at this time, neuro: Nonfocal, CV RRR, lungs clear <Jennifer Brazille, MD - Last Filed: 09/22/22 21:27> Differential Diagnosis Differential Diagnoses: The differential diagnosis associated with the presentation includes <Jennifer Narvaez MD - Last Filed: 09/22/22 21:27> Please see the discussion above <Jennifer Narvaez MD - Last Filed: 09/22/22 21:27> Consult Healthcare Provider Management of the patient was discussed with: [facility] <Jennifer Narvaez MD - Last Filed: 09/22/22 21:27> Care Team/Traveling Passenger Agent, see the discussion above <Jennifer Narvaez MD - Last Filed: 09/22/22 21:27> Lab Data MDM Lab Attestation statement: I reviewed the patient's lab results. <Jennifer Narvaez MD - Last Filed: 09/22/22 21:27> Please see the discussion above <Jennifer Narvaez MD - Last Filed: 09/22/22 21:27> Result Diagrams: 09/22/22 14:53 09/22/22 15:43 <YASMINE Bowman - Last Filed: 09/28/22 12:02> Labs: Lab Results 09/22/22 09/22/22 09/22/22 Range/Units 14:53 14:53 15:43 WBC 3.5 L (4.8-10.8) X10*3/uL RBC 4.23 D (4.20-5.50) X10*6/uL Hgb 13.8 D (12.0-16.0) g/dl Hct 39.5 (37.0-47.0) % MCV 93.4 (80.0-98.0) fL MCH 32.6 (27.0-33.0) pg MCHC 34.9 (31.0-35.0) g/dl RDW 12.4 (11.0-16.0) % Plt Count 46 L D (160-400) X10*3/uL MPV 12.1 (9.4-12.3) fL Immature Gran % (Auto) 0.3 (0.0-0.4) % Neut % (Auto) 59.9 (45-73) % Lymph % (Auto) 24.5 (20-40) % [place] % (Auto) 11.0 (2-11) % Eos % (Auto) 3.7 (0-4) % Baso % (Auto) 0.6 (0-2) % Lymph # (Auto) 0.9 L (1.2-4.9) X10*3/uL [place] # (Auto) 0.4 (0.1-1.2) X10*3/uL Eos # (Auto) 0.1 (0.0-0.4) X10*3/uL Baso # (Auto) 0.0 (0.0-0.2) X10*3/uL Abs Immat Gran (auto) 0.01 (0.00-0.03) X10*3/uL Absolute Neuts (auto) 2.1 (2.0-8.3) x10*3/uL Absolute Nucleated RBC 0.000 (0.0-0.012) X10*3/uL Nucleated RBC % (auto) 0.0 (0.0-0.2) /100WBC PT (10.0-13.1) SEC INR (0.9-1.1) Sodium 134 L (135-145) mmol/L Potassium 3.9 (3.3-5.1) mmol/L Chloride 94 L (96-108) mmol/L Carbon Dioxide 22 (22-29) mmol/L Anion Gap 22 H (12-20) BUN 8 L (9-16) mg/dL Creatinine 0.64 (0.5-1.4) mg/dL Estim Creat Clear Calc 116.3 Estimated GFR > 60 Random Glucose 103 (60-115) mg/dL Calcium 10.3 H D (8.4-10.2) mg/dL Magnesium 1.5 L (1.6-2.6) mg/dL Total Bilirubin 5.2 H (0.0-1.0) mg/dL AST 126 H (5-31) U/L ALT 63 H (0-31) U/L Alkaline Phosphatase 140 H (39-117) U/L Total Protein 8.0 (6.5-8.0) g/dL Albumin 4.7 (3.5-5.0) g/dL Urine Color Urine Appearance Urine pH (5.0-9.0) Ur Specific [place] (1.005-1.025) Urine Protein (Neg-Trace) mg/dL Urine Glucose (UA) (Negative) mg/dL Urine Ketones (Negative) mg/dL Urine Blood (Negative) Urine Nitrite (Negative) Ur Leukocyte Esterase (Negative) Urine RBC (0-2) /HPF Urine WBC (0-5) /HPF Ur Squamous Epith Cells (0-2) /HPF Urine Bacteria (None Seen) Hyaline Casts (0-2) /LPF Urine Test (NEGATIVE) Urine Opiates Screen (Not Detect) Urine Fentanyl Screen (Not Detect) Ur Barbiturates Screen (Not Detect) Ur Phencyclidine Scrn (Not Detect) Ur Amphetamines Screen (Not Detect) U Benzodiazepines Scrn (Not Detect) Urine Cocaine Screen (Not Detect) U Marijuana (THC) Screen (Not Detect) Ethyl Alcohol < 10 mg/dL Influenza Type A (PCR) NEGATIVE (Negative) Influenza Type B (PCR) NEGATIVE (Negative) RSV RNA Qual (PCR) NEGATIVE (Negative) SARS-CoV-2 RNA (RT-PCR) NEGATIVE (Negative) 09/22/22 09/22/22 09/22/22 Range/Units 16:29 16:29 16:29 WBC (4.8-10.8) X10*3/uL RBC (4.20-5.50) X10*6/uL Hgb (12.0-16.0) g/dl Hct (37.0-47.0) % MCV (80.0-98.0) fL MCH (27.0-33.0) pg MCHC (31.0-35.0) g/dl RDW (11.0-16.0) % Plt Count (160-400) X10*3/uL MPV (9.4-12.3) fL Immature Gran % (Auto) (0.0-0.4) % Neut % (Auto) (45-73) % Lymph % (Auto) (20-40) % [place] % (Auto) (2-11) % Eos % (Auto) (0-4) % Baso % (Auto) (0-2) % Lymph # (Auto) (1.2-4.9) X10*3/uL [place] # (Auto) (0.1-1.2) X10*3/uL Eos # (Auto) (0.0-0.4) X10*3/uL Baso # (Auto) (0.0-0.2) X10*3/uL Abs Immat Gran (auto) (0.00-0.03) X10*3/uL Absolute Neuts (auto) (2.0-8.3) x10*3/uL Absolute Nucleated RBC (0.0-0.012) X10*3/uL Nucleated RBC % (auto) (0.0-0.2) /100WBC PT (10.0-13.1) SEC INR (0.9-1.1) Sodium (135-145) mmol/L Potassium (3.3-5.1) mmol/L Chloride (96-108) mmol/L Carbon Dioxide (22-29) mmol/L Anion Gap (12-20) BUN (9-16) mg/dL Creatinine (0.5-1.4) mg/dL Estim Creat Clear Calc Estimated GFR Random Glucose (60-115) mg/dL Calcium (8.4-10.2) mg/dL Magnesium (1.6-2.6) mg/dL Total Bilirubin (0.0-1.0) mg/dL AST (5-31) U/L ALT (0-31) U/L Alkaline Phosphatase (39-117) U/L Total Protein (6.5-8.0) g/dL Albumin (3.5-5.0) g/dL Urine Color [place] A Urine Appearance Clear Urine pH 6.5 (5.0-9.0) Ur Specific [place] 1.025 (1.005-1.025) Urine Protein 300 (3+) H (Neg-Trace) mg/dL Urine Glucose (UA) Negative (Negative) mg/dL Urine Ketones >=160 (Negative) mg/dL Urine Blood Trace H (Negative) Urine Nitrite Positive H (Negative) Ur Leukocyte Esterase Small (1+) H (Negative) Urine RBC 11-20 H (0-2) /HPF Urine WBC 0-5 (0-5) /HPF Ur Squamous Epith Cells 11-20 (0-2) /HPF Urine Bacteria 1+ (None Seen) Hyaline Casts 0-2 (0-2) /LPF Urine Test NEGATIVE (NEGATIVE) Urine Opiates Screen Not Detected (Not Detect) Urine Fentanyl Screen Not Detected (Not Detect) Ur Barbiturates Screen Not Detected (Not Detect) Ur Phencyclidine Scrn Not Detected (Not Detect) Ur Amphetamines Screen Not Detected (Not Detect) U Benzodiazepines Scrn Not Detected (Not Detect) Urine Cocaine Screen Not Detected (Not Detect) U Marijuana (THC) Screen Not Detected (Not Detect) Ethyl Alcohol mg/dL Influenza Type A (PCR) (Negative) Influenza Type B (PCR) (Negative) RSV RNA Qual (PCR) (Negative) SARS-CoV-2 RNA (RT-PCR) (Negative) 09/22/22 09/22/22 Range/Units 19:52 19:52 WBC (4.8-10.8) X10*3/uL RBC (4.20-5.50) X10*6/uL Hgb (12.0-16.0) g/dl Hct (37.0-47.0) % MCV (80.0-98.0) fL MCH (27.0-33.0) pg MCHC (31.0-35.0) g/dl RDW (11.0-16.0) % Plt Count (160-400) X10*3/uL MPV (9.4-12.3) fL Immature Gran % (Auto) (0.0-0.4) % Neut % (Auto) (45-73) % Lymph % (Auto) (20-40) % [place] % (Auto) (2-11) % Eos % (Auto) (0-4) % Baso % (Auto) (0-2) % Lymph # (Auto) (1.2-4.9) X10*3/uL [place] # (Auto) (0.1-1.2) X10*3/uL Eos # (Auto) (0.0-0.4) X10*3/uL Baso # (Auto) (0.0-0.2) X10*3/uL Abs Immat Gran (auto) (0.00-0.03) X10*3/uL Absolute Neuts (auto) (2.0-8.3) x10*3/uL Absolute Nucleated RBC (0.0-0.012) X10*3/uL Nucleated RBC % (auto) (0.0-0.2) /100WBC PT 15.1 H (10.0-13.1) SEC INR 1.3 H (0.9-1.1) Sodium 136 (135-145) mmol/L Potassium 3.6 (3.3-5.1) mmol/L Chloride 95 L (96-108) mmol/L Carbon Dioxide 23 (22-29) mmol/L Anion Gap 22 H (12-20) BUN 7 L (9-16) mg/dL Creatinine 0.69 (0.5-1.4) mg/dL Estim Creat Clear Calc 107.9 Estimated GFR > 60 Random Glucose 93 (60-115) mg/dL Calcium 9.4 D (8.4-10.2) mg/dL Magnesium 1.9 (1.6-2.6) mg/dL Total Bilirubin (0.0-1.0) mg/dL AST (5-31) U/L ALT (0-31) U/L Alkaline Phosphatase (39-117) U/L Total Protein (6.5-8.0) g/dL Albumin (3.5-5.0) g/dL Urine Color Urine Appearance Urine pH (5.0-9.0) Ur Specific [place] (1.005-1.025) Urine Protein (Neg-Trace) mg/dL Urine Glucose (UA) (Negative) mg/dL Urine Ketones (Negative) mg/dL Urine Blood (Negative) Urine Nitrite (Negative) Ur Leukocyte Esterase (Negative) Urine RBC (0-2) /HPF Urine WBC (0-5) /HPF Ur Squamous Epith Cells (0-2) /HPF Urine Bacteria (None Seen) Hyaline Casts (0-2) /LPF Urine Test (NEGATIVE) Urine Opiates Screen (Not Detect) Urine Fentanyl Screen (Not Detect) Ur Barbiturates Screen (Not Detect) Ur Phencyclidine Scrn (Not Detect) Ur Amphetamines Screen (Not Detect) U Benzodiazepines Scrn (Not Detect) Urine Cocaine Screen (Not Detect) U Marijuana (THC) Screen (Not Detect) Ethyl Alcohol mg/dL Influenza Type A (PCR) (Negative) Influenza Type B (PCR) (Negative) RSV RNA Qual (PCR) (Negative) SARS-CoV-2 RNA (RT-PCR) (Negative) <YASMINE Bowman - Last Filed: 09/28/22 12:02> Lab Results 09/22/22 09/22/2223 Range/Units 14:53 14:53 15:43 WBC 3.5 L (4.8-10.8) X10*3/uL RBC 4.23 D (4.20-5.50) X10*6/uL Hgb 13.8 D (12.0-16.0) g/dl Hct 39.5 (37.0-47.0) % MCV 93.4 (80.0-98.0) fL MCH 32.6 (27.0-33.0) pg MCHC 34.9 (31.0-35.0) g/dl RDW 12.4 (11.0-16.0) % Plt Count 46 L D (160-400) X10*3/uL MPV 12.1 (9.4-12.3) fL Immature Gran % (Auto) 0.3 (0.0-0.4) % Neut % (Auto) 59.9 (45-73) % Lymph % (Auto) 24.5 (20-40) % [place] % (Auto) 11.0 (2-11) % Eos % (Auto) 3.7 (0-4) % Baso % (Auto) 0.6 (0-2) % Lymph # (Auto) 0.9 L (1.2-4.9) X10*3/uL [place] # (Auto) 0.4 (0.1-1.2) X10*3/uL Eos # (Auto) 0.1 (0.0-0.4) X10*3/uL Baso # (Auto) 0.0 (0.0-0.2) X10*3/uL Abs Immat Gran (auto) 0.01 (0.00-0.03) X10*3/uL Absolute Neuts (auto) 2.1 (2.0-8.3) x10*3/uL Absolute Nucleated RBC 0.000 (0.0-0.012) X10*3/uL Nucleated RBC % (auto) 0.0 (0.0-0.2) /100WBC PT (10.0-13.1) SEC INR (0.9-1.1) Sodium 134 L (135-145) mmol/L Potassium 3.9 (3.3-5.1) mmol/L Chloride 94 L (96-108) mmol/L Carbon Dioxide 22 (22-29) mmol/L Anion Gap 22 H (12-20) BUN 8 L (9-16) mg/dL Creatinine 0.64 (0.5-1.4) mg/dL Estim Creat Clear Calc 116.3 Estimated GFR > 60 Random Glucose 103 (60-115) mg/dL Calcium 10.3 H D (8.4-10.2) mg/dL Magnesium 1.5 L (1.6-2.6) mg/dL Total Bilirubin 5.2 H (0.0-1.0) mg/dL AST 126 H (5-31) U/L ALT 63 H (0-31) U/L Alkaline Phosphatase 140 H (39-117) U/L Total Protein 8.0 (6.5-8.0) g/dL Albumin 4.7 (3.5-5.0) g/dL Urine Color Urine Appearance Urine pH (5.0-9.0) Ur Specific [place] (1.005-1.025) Urine Protein (Neg-Trace) mg/dL Urine Glucose (UA) (Negative) mg/dL Urine Ketones (Negative) mg/dL Urine Blood (Negative) Urine Nitrite (Negative) Ur Leukocyte Esterase (Negative) Urine RBC (0-2) /HPF Urine WBC (0-5) /HPF Ur Squamous Epith Cells (0-2) /HPF Urine Bacteria (None Seen) Hyaline Casts (0-2) /LPF Urine Test (NEGATIVE) Urine Opiates Screen (Not Detect) Urine Fentanyl Screen (Not Detect) Ur Barbiturates Screen (Not Detect) Ur Phencyclidine Scrn (Not Detect) Ur Amphetamines Screen (Not Detect) U Benzodiazepines Scrn (Not Detect) Urine Cocaine Screen (Not Detect) U Marijuana (THC) Screen (Not Detect) Ethyl Alcohol < 10 mg/dL Influenza Type A (PCR) NEGATIVE (Negative) Influenza Type B (PCR) NEGATIVE (Negative) RSV RNA Qual (PCR) NEGATIVE (Negative) SARS-CoV-2 RNA (RT-PCR) NEGATIVE (Negative) 09/22/22 09/22/22 09/22/22 Range/Units 16:29 16:29 16:29 WBC (4.8-10.8) X10*3/uL RBC (4.20-5.50) X10*6/uL Hgb (12.0-16.0) g/dl Hct (37.0-47.0) % MCV (80.0-98.0) fL MCH (27.0-33.0) pg MCHC (31.0-35.0) g/dl RDW (11.0-16.0) % Plt Count (160-400) X10*3/uL MPV (9.4-12.3) fL Immature Gran % (Auto) (0.0-0.4) % Neut % (Auto) (45-73) % Lymph % (Auto) (20-40) % [place] % (Auto) (2-11) % Eos % (Auto) (0-4) % Baso % (Auto) (0-2) % Lymph # (Auto) (1.2-4.9) X10*3/uL [place] # (Auto) (0.1-1.2) X10*3/uL Eos # (Auto) (0.0-0.4) X10*3/uL Baso # (Auto) (0.0-0.2) X10*3/uL Abs Immat Gran (auto) (0.00-0.03) X10*3/uL Absolute Neuts (auto) (2.0-8.3) x10*3/uL Absolute Nucleated RBC (0.0-0.012) X10*3/uL Nucleated RBC % (auto) (0.0-0.2) /100WBC PT (10.0-13.1) SEC INR (0.9-1.1) Sodium (135-145) mmol/L Potassium (3.3-5.1) mmol/L Chloride (96-108) mmol/L Carbon Dioxide (22-29) mmol/L Anion Gap (12-20) BUN (9-16) mg/dL Creatinine (0.5-1.4) mg/dL Estim Creat Clear Calc Estimated GFR Random Glucose (60-115) mg/dL Calcium (8.4-10.2) mg/dL Magnesium (1.6-2.6) mg/dL Total Bilirubin (0.0-1.0) mg/dL AST (5-31) U/L ALT (0-31) U/L Alkaline Phosphatase (39-117) U/L Total Protein (6.5-8.0) g/dL Albumin (3.5-5.0) g/dL Urine Color [place] A Urine Appearance Clear Urine pH 6.5 (5.0-9.0) Ur Specific [place] 1.025 (1.005-1.025) Urine Protein 300 (3+) H (Neg-Trace) mg/dL Urine Glucose (UA) Negative (Negative) mg/dL Urine Ketones >=160 (Negative) mg/dL Urine Blood Trace H (Negative) Urine Nitrite Positive H (Negative) Ur Leukocyte Esterase Small (1+) H (Negative) Urine RBC 11-20 H (0-2) /HPF Urine WBC 0-5 (0-5) /HPF Ur Squamous Epith Cells 11-20 (0-2) /HPF Urine Bacteria 1+ (None Seen) Hyaline Casts 0-2 (0-2) /LPF Urine Test NEGATIVE (NEGATIVE) Urine Opiates Screen Not Detected (Not Detect) Urine Fentanyl Screen Not Detected (Not Detect) Ur Barbiturates Screen Not Detected (Not Detect) Ur Phencyclidine Scrn Not Detected (Not Detect) Ur Amphetamines Screen Not Detected (Not Detect) U Benzodiazepines Scrn Not Detected (Not Detect) Urine Cocaine Screen Not Detected (Not Detect) U Marijuana (THC) Screen Not Detected (Not Detect) Ethyl Alcohol mg/dL Influenza Type A (PCR) (Negative) Influenza Type B (PCR) (Negative) RSV RNA Qual (PCR) (Negative) SARS-CoV-2 RNA (RT-PCR) (Negative) 09/22/22 09/22/22 Range/Units 19:52 19:52 WBC (4.8-10.8) X10*3/uL RBC (4.20-5.50) X10*6/uL Hgb (12.0-16.0) g/dl Hct (37.0-47.0) % MCV (80.0-98.0) fL MCH (27.0-33.0) pg MCHC (31.0-35.0) g/dl RDW (11.0-16.0) % Plt Count (160-400) X10*3/uL MPV (9.4-12.3) fL Immature Gran % (Auto) (0.0-0.4) % Neut % (Auto) (45-73) % Lymph % (Auto) (20-40) % [place] % (Auto) (2-11) % Eos % (Auto) (0-4) % Baso % (Auto) (0-2) % Lymph # (Auto) (1.2-4.9) X10*3/uL [place] # (Auto) (0.1-1.2) X10*3/uL Eos # (Auto) (0.0-0.4) X10*3/uL Baso # (Auto) (0.0-0.2) X10*3/uL Abs Immat Gran (auto) (0.00-0.03) X10*3/uL Absolute Neuts (auto) (2.0-8.3) x10*3/uL Absolute Nucleated RBC (0.0-0.012) X10*3/uL Nucleated RBC % (auto) (0.0-0.2) /100WBC PT 15.1 H (10.0-13.1) SEC INR 1.3 H (0.9-1.1) Sodium 136 (135-145) mmol/L Potassium 3.6 (3.3-5.1) mmol/L Chloride 95 L (96-108) mmol/L Carbon Dioxide 23 (22-29) mmol/L Anion Gap 22 H (12-20) BUN 7 L (9-16) mg/dL Creatinine 0.69 (0.5-1.4) mg/dL Estim Creat Clear Calc 107.9 Estimated GFR > 60 Random Glucose 93 (60-115) mg/dL Calcium 9.4 D (8.4-10.2) mg/dL Magnesium 1.9 (1.6-2.6) mg/dL Total Bilirubin (0.0-1.0) mg/dL AST (5-31) U/L ALT (0-31) U/L Alkaline Phosphatase (39-117) U/L Total Protein (6.5-8.0) g/dL Albumin (3.5-5.0) g/dL Urine Color Urine Appearance Urine pH (5.0-9.0) Ur Specific [place] (1.005-1.025) Urine Protein (Neg-Trace) mg/dL Urine Glucose (UA) (Negative) mg/dL Urine Ketones (Negative) mg/dL Urine Blood (Negative) Urine Nitrite (Negative) Ur Leukocyte Esterase (Negative) Urine RBC (0-2) /HPF Urine WBC (0-5) /HPF Ur Squamous Epith Cells (0-2) /HPF Urine Bacteria (None Seen) Hyaline Casts (0-2) /LPF Urine Test (NEGATIVE) Urine Opiates Screen (Not Detect) Urine Fentanyl Screen (Not Detect) Ur Barbiturates Screen (Not Detect) Ur Phencyclidine Scrn (Not Detect) Ur Amphetamines Screen (Not Detect) U Benzodiazepines Scrn (Not Detect) Urine Cocaine Screen (Not Detect) U Marijuana (THC) Screen (Not Detect) Ethyl Alcohol mg/dL Influenza Type A (PCR) (Negative) Influenza Type B (PCR) (Negative) RSV RNA Qual (PCR) (Negative) SARS-CoV-2 RNA (RT-PCR) (Negative) <Jennifer Narvaez MD - Last Filed: 09/22/22 21:27> Lab Results 09/22/22 09/22/22 09/22/22 Range/Units 14:53 14:53 15:43 WBC 3.5 L (4.8-10.8) X10*3/uL RBC 4.23 D (4.20-5.50) X10*6/uL Hgb 13.8 D (12.0-16.0) g/dl Hct 39.5 (37.0-47.0) % MCV 93.4 (80.0-98.0) fL MCH 32.6 (27.0-33.0) pg MCHC 34.9 (31.0-35.0) g/dl RDW 12.4 (11.0-16.0) % Plt Count 46 L D (160-400) X10*3/uL MPV 12.1 (9.4-12.3) fL Immature Gran % (Auto) 0.3 (0.0-0.4) % Neut % (Auto) 59.9 (45-73) % Lymph % (Auto) 24.5 (20-40) % [place] % (Auto) 11.0 (2-11) % Eos % (Auto) 3.7 (0-4) % Baso % (Auto) 0.6 (0-2) % Lymph # (Auto) 0.9 L (1.2-4.9) X10*3/uL [place] # (Auto) 0.4 (0.1-1.2) X10*3/uL Eos # (Auto) 0.1 (0.0-0.4) X10*3/uL Baso # (Auto) 0.0 (0.0-0.2) X10*3/uL Abs Immat Gran (auto) 0.01 (0.00-0.03) X10*3/uL Absolute Neuts (auto) 2.1 (2.0-8.3) x10*3/uL Absolute Nucleated RBC 0.000 (0.0-0.012) X10*3/uL Nucleated RBC % (auto) 0.0 (0.0-0.2) /100WBC PT (10.0-13.1) SEC INR (0.9-1.1) Sodium 134 L (135-145) mmol/L Potassium 3.9 (3.3-5.1) mmol/L Chloride 94 L (96-108) mmol/L Carbon Dioxide 22 (22-29) mmol/L Anion Gap 22 H (12-20) BUN 8 L (9-16) mg/dL Creatinine 0.64 (0.5-1.4) mg/dL Estim Creat Clear Calc 116.3 Estimated GFR > 60 Random Glucose 103 (60-115) mg/dL Calcium 10.3 H D (8.4-10.2) mg/dL Magnesium 1.5 L (1.6-2.6) mg/dL Total Bilirubin 5.2 H (0.0-1.0) mg/dL AST 126 H (5-31) U/L ALT 63 H (0-31) U/L Alkaline Phosphatase 140 H (39-117) U/L Total Protein 8.0 (6.5-8.0) g/dL Albumin 4.7 (3.5-5.0) g/dL Urine Color Urine Appearance Urine pH (5.0-9.0) Ur Specific [place] (1.005-1.025) Urine Protein (Neg-Trace) mg/dL Urine Glucose (UA) (Negative) mg/dL Urine Ketones (Negative) mg/dL Urine Blood (Negative) Urine Nitrite (Negative) Ur Leukocyte Esterase (Negative) Urine RBC (0-2) /HPF Urine WBC (0-5) /HPF Ur Squamous Epith Cells (0-2) /HPF Urine Bacteria (None Seen) Hyaline Casts (0-2) /LPF Urine Test (NEGATIVE) Urine Opiates Screen (Not Detect) Urine Fentanyl Screen (Not Detect) Ur Barbiturates Screen (Not Detect) Ur Phencyclidine Scrn (Not Detect) Ur Amphetamines Screen (Not Detect) U Benzodiazepines Scrn (Not Detect) Urine Cocaine Screen (Not Detect) U Marijuana (THC) Screen (Not Detect) Ethyl Alcohol < 10 mg/dL Influenza Type A (PCR) NEGATIVE (Negative) Influenza Type B (PCR) NEGATIVE (Negative) RSV RNA Qual (PCR) NEGATIVE (Negative) SARS-CoV-2 RNA (RT-PCR) NEGATIVE (Negative) 09/22/22 09/22/22 09/22/22 Range/Units 16:29 16:29 16:29 WBC (4.8-10.8) X10*3/uL RBC (4.20-5.50) X10*6/uL Hgb (12.0-16.0) g/dl Hct (37.0-47.0) % MCV (80.0-98.0) fL MCH (27.0-33.0) pg MCHC (31.0-35.0) g/dl RDW (11.0-16.0) % Plt Count (160-400) X10*3/uL MPV (9.4-12.3) fL Immature Gran % (Auto) (0.0-0.4) % Neut % (Auto) (45-73) % Lymph % (Auto) (20-40) % [place] % (Auto) (2-11) % Eos % (Auto) (0-4) % Baso % (Auto) (0-2) % Lymph # (Auto) (1.2-4.9) X10*3/uL [place] # (Auto) (0.1-1.2) X10*3/uL Eos # (Auto) (0.0-0.4) X10*3/uL Baso # (Auto) (0.0-0.2) X10*3/uL Abs Immat Gran (auto) (0.00-0.03) X10*3/uL Absolute Neuts (auto) (2.0-8.3) x10*3/uL Absolute Nucleated RBC (0.0-0.012) X10*3/uL Nucleated RBC % (auto) (0.0-0.2) /100WBC PT (10.0-13.1) SEC INR (0.9-1.1) Sodium (135-145) mmol/L Potassium (3.3-5.1) mmol/L Chloride (96-108) mmol/L Carbon Dioxide (22-29) mmol/L Anion Gap (12-20) BUN (9-16) mg/dL Creatinine (0.5-1.4) mg/dL Estim Creat Clear Calc Estimated GFR Random Glucose (60-115) mg/dL Calcium (8.4-10.2) mg/dL Magnesium (1.6-2.6) mg/dL Total Bilirubin (0.0-1.0) mg/dL AST (5-31) U/L ALT (0-31) U/L Alkaline Phosphatase (39-117) U/L Total Protein (6.5-8.0) g/dL Albumin (3.5-5.0) g/dL Urine Color [place] A Urine Appearance Clear Urine pH 6.5 (5.0-9.0) Ur Specific [place] 1.025 (1.005-1.025) Urine Protein 300 (3+) H (Neg-Trace) mg/dL Urine Glucose (UA) Negative (Negative) mg/dL Urine Ketones >=160 (Negative) mg/dL Urine Blood Trace H (Negative) Urine Nitrite Positive H (Negative) Ur Leukocyte Esterase Small (1+) H (Negative) Urine RBC 11-20 H (0-2) /HPF Urine WBC 0-5 (0-5) /HPF Ur Squamous Epith Cells 11-20 (0-2) /HPF Urine Bacteria 1+ (None Seen) Hyaline Casts 0-2 (0-2) /LPF Urine Test NEGATIVE (NEGATIVE) Urine Opiates Screen Not Detected (Not Detect) Urine Fentanyl Screen Not Detected (Not Detect) Ur Barbiturates Screen Not Detected (Not Detect) Ur Phencyclidine Scrn Not Detected (Not Detect) Ur Amphetamines Screen Not Detected (Not Detect) U Benzodiazepines Scrn Not Detected (Not Detect) Urine Cocaine Screen Not Detected (Not Detect) U Marijuana (THC) Screen Not Detected (Not Detect) Ethyl Alcohol mg/dL Influenza Type A (PCR) (Negative) Influenza Type B (PCR) (Negative) RSV RNA Qual (PCR) (Negative) SARS-CoV-2 RNA (RT-PCR) (Negative) 09/22/22 09/22/22 Range/Units 19:52 19:52 WBC (4.8-10.8) X10*3/uL RBC (4.20-5.50) X10*6/uL Hgb (12.0-16.0) g/dl Hct (37.0-47.0) % MCV (80.0-98.0) fL MCH (27.0-33.0) pg MCHC (31.0-35.0) g/dl RDW (11.0-16.0) % Plt Count (160-400) X10*3/uL MPV (9.4-12.3) fL Immature Gran % (Auto) (0.0-0.4) % Neut % (Auto) (45-73) % Lymph % (Auto) (20-40) % [place] % (Auto) (2-11) % Eos % (Auto) (0-4) % Baso % (Auto) (0-2) % Lymph # (Auto) (1.2-4.9) X10*3/uL [place] # (Auto) (0.1-1.2) X10*3/uL Eos # (Auto) (0.0-0.4) X10*3/uL Baso # (Auto) (0.0-0.2) X10*3/uL Abs Immat Gran (auto) (0.00-0.03) X10*3/uL Absolute Neuts (auto) (2.0-8.3) x10*3/uL Absolute Nucleated RBC (0.0-0.012) X10*3/uL Nucleated RBC % (auto) (0.0-0.2) /100WBC PT 15.1 H (10.0-13.1) SEC INR 1.3 H (0.9-1.1) Sodium 136 (135-145) mmol/L Potassium 3.6 (3.3-5.1) mmol/L Chloride 95 L (96-108) mmol/L Carbon Dioxide 23 (22-29) mmol/L Anion Gap 22 H (12-20) BUN 7 L (9-16) mg/dL Creatinine 0.69 (0.5-1.4) mg/dL Estim Creat Clear Calc 107.9 Estimated GFR > 60 Random Glucose 93 (60-115) mg/dL Calcium 9.4 D (8.4-10.2) mg/dL Magnesium 1.9 (1.6-2.6) mg/dL Total Bilirubin (0.0-1.0) mg/dL AST (5-31) U/L ALT (0-31) U/L Alkaline Phosphatase (39-117) U/L Total Protein (6.5-8.0) g/dL Albumin (3.5-5.0) g/dL Urine Color Urine Appearance Urine pH (5.0-9.0) Ur Specific [place] (1.005-1.025) Urine Protein (Neg-Trace) mg/dL Urine Glucose (UA) (Negative) mg/dL Urine Ketones (Negative) mg/dL Urine Blood (Negative) Urine Nitrite (Negative) Ur Leukocyte Esterase (Negative) Urine RBC (0-2) /HPF Urine WBC (0-5) /HPF Ur Squamous Epith Cells (0-2) /HPF Urine Bacteria (None Seen) Hyaline Casts (0-2) /LPF Urine Test (NEGATIVE) Urine Opiates Screen (Not Detect) Urine Fentanyl Screen (Not Detect) Ur Barbiturates Screen (Not Detect) Ur Phencyclidine Scrn (Not Detect) Ur Amphetamines Screen (Not Detect) U Benzodiazepines Scrn (Not Detect) Urine Cocaine Screen (Not Detect) U Marijuana (THC) Screen (Not Detect) Ethyl Alcohol mg/dL Influenza Type A (PCR) (Negative) Influenza Type B (PCR) (Negative) RSV RNA Qual (PCR) (Negative) SARS-CoV-2 RNA (RT-PCR) (Negative) <Radha Fung CNP - Last Filed: 09/23/22 12:39> Independent Interpretation I performed an independent interpretation of an: EKG <Jennifer Narvaez MD - Last Filed: 09/22/22 21:27> Interpretation: Normal sinus rhythm, HR-76, no STEMI, IN/QRS/QTC is within normal limits. <Jennifer Narvaez MD - Last Filed: 09/22/22 21:27> External Record Review External record reviewed: Inpatient record, Outpatient record and Prior outpatient labs <Jennifer Narvaez MD - Last Filed: 09/22/22 21:27> Chronic Conditions Patient?s care impacted by: Other <Jennifer Narvaez MD - Last Filed: 09/22/22 21:27> Liver cirrhosis, alcohol use disorder <Jennifer Narvaez MD - Last Filed: 09/22/22 21:27> Critical Care Time Critical Care Time Critical Care Time: Yes <Jennifer Narvaez MD - Last Filed: 09/22/22 21:27> Total Critical Care Time: 45 <Jennifer Narvaez MD - Last Filed: 09/22/22 21:27> Attestation: I personally attest to this time spent taking care of the patient. <Jennifer Narvaez MD - Last Filed: 09/22/22 21:27> Discharge Plan Discharge Clinical Impression: Alcohol use disorder <YASMINE Bowman - Last Filed: 09/28/22 12:02> Patient Disposition: Home, Self-Care <YASMINE Bowman - Last Filed: 09/28/22 12:02> Additional Instructions: Please be sure to attend your scheduled follow-up outpatient at the [facility] on Wednesday09/25/22 You may return back to emergency department any new or worsening symptoms or concerns. <YASMINE Bowman - Last Filed: 09/28/22 12:02> Prescriptions: New cefdinir 300 mg capsule 300 mg PO BID 5 Days Qty: 10 0RF No Action folic acid 1 mg tablet 1 mg PO DAILY Qty: 30 1RF thiamine HCl (vitamin B1) 100 mg tablet 100 mg PO DAILY Qty: 30 0RF acamprosate 333 mg tablet,delayed release (DR/EC) 666 mg PO TID Qty: 180 0RF magnesium oxide 400 mg (241.3 mg magnesium) tablet 1 tab PO DAILY cyanocobalamin (vitamin B-12) [Vitamin B-12] 500 mcg tablet 1 tab PO DAILY cholecalciferol (vitamin D3) 50 mcg (2,000 unit) capsule 1 cap PO DAILY nadolol 20 mg Tablet 20 mg PO DAILY mirtazapine 7.5 mg tablet 7.5 mg PO BEDTIME Qty: 30 0RF <YASMINE Bowman - Last Filed: 09/28/22 12:02> Referrals: Marino Goodson MD [Primary Care Provider] - <YASMINE Bowman - Last Filed: 09/28/22 12:02> Interventions: [place]-Suicide Risk Severity Scale Last Done: 09/23/22 07:50 ED Discharge Assessment Last Done: 09/23/22 13:57 <YASMINE Bowman - Last Filed: 09/28/22 12:02> Discharge Date/Time: 09/23/22 13:57 <YASMINE Bowman - Last Filed: 09/28/22 12:02>
--- NOTE | 2022-09-22 14:57 | PC.NURSE ---
Patient present to ED with desire to detox from alcohol last drink yesterday drinks wine and vodka daily. Unsure of ever having withdrawn some weakness and pain in legs noted. In wheelchair in triage needs assistance onto stretcher. AOx 4 neuros intact no distress noted. IV access obtained labs collected and sent will [facility]
[2022-09-22 14:58] LABS: MANUAL DIFF FLAG NO
[2022-09-22 15:01] LABS: Basophils Percent Auto 0.6 % (0-2); Eosinophils Absolute Auto 0.1 X10*3/uL (0.0-0.4); Eosinophils Percent Auto 3.7 % (0-4); Hematocrit 39.5 % (37.0-47.0); Hemoglobin 13.8 g/dl (12.0-16.0); Imm Gran Abs Auto 0.01 X10*3/uL (0.00-0.03); Imm Gran Pct Auto 0.3 % (0.0-0.4); Lymphocytes Absolute Auto 0.9 X10*3/uL (1.2-4.9); Lymphocytes Percent Auto 24.5 % (20-40); Mean Corpuscular HGB Conc 34.9 g/dl (31.0-35.0); Mean Corpuscular Hemoglobin 32.6 pg (27.0-33.0); Mean Corpuscular Volume 93.4 fL (80.0-98.0); Mean Platelet Volume 12.1 fL (9.4-12.3); Monocytes Absolute Auto 0.4 X10*3/uL (0.1-1.2); Neutrophils Absolute Auto 2.1 x10*3/uL (2.0-8.3); Neutrophils Percent Auto 59.9 % (45-73); Red Blood Count 4.23 X10*6/uL (4.20-5.50); Red Cell Distribution Width 12.4 % (11.0-16.0); White Blood Count 3.5 X10*3/uL (4.8-10.8)
[2022-09-22 15:05] LABS: Platelet Count 46 X10*3/uL (160-400)
[2022-09-22 15:38] VITALS: BP 153/90; PULSE 74; RESP 15; O2SAT 96
--- NOTE | 2022-09-22 15:39 | PC.NURSE ---
assumed care of patient pt walks with cane at baseline no apparent distress lc pct to bring commode to pt's room
[2022-09-22] MEDS: 0.9 % Sodium Chloride 1,000 ML 999 ML IV (15:43)
[2022-09-22 15:44] LABS: Influenza A PCR NEGATIVE (Negative); Influenza B PCR NEGATIVE (Negative); Resp Syncy Virus RNA Qual PCR NEGATIVE (Negative); SARS COV2 PCR INHOUSE NEGATIVE (Negative)
[2022-09-22 16:16] LABS: Alanine Aminotransferase 63 U/L (0-31); Albumin Level 4.7 g/dL (3.5-5.0); Alkaline Phosphatase 140 U/L (39-117); Anion Gap 22 (12-20); Aspartate Amino Transferase 126 U/L (5-31); Bilirubin Total 5.2 mg/dL (0.0-1.0); Blood Urea Nitrogen 8 mg/dL (9-16); Calcium 10.3 mg/dL (8.4-10.2); Carbon Dioxide 22 mmol/L (22-29); Chloride 94 mmol/L (96-108); Creatinine Clr Calc Pharmacy 116.3; Estimated Glomerular Filt Rate > 60; Ethanol < 10 mg/dL; Glucose Random 103 mg/dL (60-115); Magnesium 1.5 mg/dL (1.6-2.6); Potassium 3.9 mmol/L (3.3-5.1); Sodium 134 mmol/L (135-145)
[2022-09-22 16:45] LABS: Amphetamine Screen Urine Not Detected (Not Detect); Barbiturates, Urine Not Detected (Not Detect); Benzodiazepines Screen Urine Not Detected (Not Detect); Cannabinoid Screen Urine Not Detected (Not Detect); Cocaine Screen Urine Not Detected (Not Detect); Fentanyl, urine Not Detected (Not Detect); Opiate Screen Urine Not Detected (Not Detect); Phencyclidine Screen Urine Not Detected (Not Detect)
[2022-09-22 16:49] LABS: UPreg QC Valid YES; Urine Pregnancy NEGATIVE (NEGATIVE)
--- NOTE | 2022-09-22 17:11 | MHC.RECOVRN ---
This property underwriter met with patient, patient reporting nausea/vomitting, tongue tremulous, patient reporting neuropathy pain in legs and hands. Patient states drinking daily 4 small bottles of wine and 5 shots of vodka. Patient reports no ETOH induced seizures, no delerium tremens. Patient interested in ATS bedsearch, once medically cleared. Reviewed case with Provider.
--- NOTE | 2022-09-22 17:38 | ECG_ITS ---
Test Reason : CP Blood Pressure : / mmHG Vent. Rate : 076 BPM Atrial Rate : 076 BPM P-R Int : 166 ms QRS Dur : 080 ms QT Int : 512 ms P-R-T Axes : 009 -28 -17 degrees QTc Int : 576 ms Normal sinus rhythm Minimal voltage criteria for LVH, may be normal variant ( R in aVL ) Hyperacute appearing T waves in the lateral leads Prolonged QT Abnormal ECG When compared with ECG of 17-MAY-2022 00:51, T waves are prominent in the lateral leads. QT has lengthened Referred By: Jennifer Narvaez Electronically Signed By:Les Lacey
[2022-09-22 17:53] LABS: Appearance Urine Clear; Color Urine Orange; Glucose Urine UA Negative (Negative); Leukocyte Esterase Urine Small (1+) (Negative); Nitrite Urine Positive (Negative); PH 6.5 (5.0-9.0); Specific Gravity - Urine 1.025 (1.005-1.025); UMIC TRIGGER UACC YES; Urine Blood Trace (Negative); Urine Ketones >=160 mg/dL (Negative); Urine Protein 300 (3+) mg/dL (Neg-Trace)
[2022-09-22] MEDS: ondansetron HCL 4 MG/2 ML VIAL IVPUSH (17:53)
[2022-09-22 17:54] LABS: Bacteria Urine 1+ (None Seen); Hyaline Casts Urine 0-2 /LPF (0-2); UACC Culture Trigger YES; WBC Urine 0-5 /HPF (0-5)
[2022-09-22] MEDS: Magnesium Sulfate/D5W 1 GM/100 ML PIGGYBACK IV (17:59)
[2022-09-22] MEDS: cefTRIAXone sodium 1 GM in 0.9 % Sodium Chloride 50 ML IV (18:35)
[2022-09-22 19:43] VITALS: BP 143/83; PULSE 72; RESP 15; TEMP 37.2; O2SAT 96
[2022-09-22 20:08] LABS: INTERNATIONAL NORM RATIO 1.3 (0.9-1.1); Prothrombin Time 15.1 SEC (10.0-13.1)
[2022-09-22 20:48] LABS: Anion Gap 22 (12-20); Blood Urea Nitrogen 7 mg/dL (9-16); Calcium 9.4 mg/dL (8.4-10.2); Carbon Dioxide 23 mmol/L (22-29); Chloride 95 mmol/L (96-108); Creatinine Clr Calc Pharmacy 107.9; Estimated Glomerular Filt Rate > 60; Glucose Random 93 mg/dL (60-115); Magnesium 1.9 mg/dL (1.6-2.6); Potassium 3.6 mmol/L (3.3-5.1); Sodium 136 mmol/L (135-145)
[2022-09-22] MEDS: Morphine Sulfate 2 MG/ML CARTRIDGE 1 MG IVPUSH (21:01)
--- NOTE | 2022-09-22 21:44 | MHC.RECOVSUP ---
? Reason for consult:ETOH o? Current location:ED04? o? Identified substance use concern:? -? Seeking ATS (detox) -? Support ? Intervention: o? ATS bed search started/completed/in process o? Harm reduction discussion ? Plan: o? Bed search in progress to [facility] o? Follow up tomorrow? ? Additional information:RC submitted referal to [facility] in [place], please follow up tomorrow 09/23/22 please!
[2022-09-23] VITALS: BP 145/81; PULSE 84; RESP 18; TEMP 37.2; O2SAT 96
[2022-09-23] MEDS: LORazepam 1 MG TABLET PO (02:13)
[2022-09-23 02:17] VITALS: PULSE 80; RESP 16; O2SAT 96
[2022-09-23] MEDS: Ibuprofen 600 MG TABLET PO (04:55)
[2022-09-23 05:33] VITALS: BP 120/73; PULSE 91; RESP 17; TEMP 37.1; O2SAT 98
--- NOTE | 2022-09-23 06:02 | PC.NURSE ---
Patient is alert and oriented x3. Patient continues to present with stable vital signs and O2 Sat. Last CIWA score 2. Patient was medicated with Lorazepam 1 mg PO and Ibuprofen 600 mg PO for chronic pain in b/l hands and lower legs with positive effect. Patient is calm, patient reports decrease in pain from 6-7/10 down to 3/10 on 0-10 pain scale-patient reports pain is at tolerable level. No s/s of active ETOH withdrawal noted at this time. Patient is in a stretcher bed playing a game on her phone,call jay within patient's reach.
[2022-09-23 10:46] VITALS: BP 141/88; PULSE 95; RESP 14; O2SAT 96
[2022-09-23] MEDS: Folic Acid 1 MG TABLET PO (12:08)
[2022-09-23] MEDS: Magnesium Oxide 400 MG TABLET PO (12:08)
[2022-09-23] MEDS: Cholecalciferol (Vitamin D3) 25 MCG TABLET 50 MCG PO (12:08)
--- NOTE | 2022-09-23 12:33 | MHC.RECOVRN ---
This mortgage underwriter spoke w/ RN at [facility], RN states patient denied admission as patient needs higher level of care. T/W reviewed with patient, patient agreeable to d/c home, f/u outpatient at the [facility] on Wednesday09/25/22. Patient reports plans to meeti with General Production Worker upon d/c in the community and f/u with recovery resources. Provider aware.
[2022-09-23 13:25] VITALS: BP 142/88; PULSE 96; RESP 14; O2SAT 96
[2022-09-23] MEDS: Cyanocobalamin (Vitamin B-12) 500 MCG TABLET PO (13:31)
[2022-09-23] MEDS: nadoloL 20 MG TABLET PO (13:32)
== END 2022-09-23 13:57 | disposition home or self-care (01) ==
PROVIDERS: Physician Assistant; Emergency Provider Student in an Organized Health Care Education/Training Program; PCP Internal Medicine
DX: F10.20 Alcohol dependence, uncomplicated (principal); Y90.0 Blood alcohol level of less than 20 mg/100 ml; K29.20 Alcoholic gastritis without bleeding; E83.42 Hypomagnesemia; E86.0 Dehydration; K74.60 Unspecified cirrhosis of liver; Z20.822 Contact with and (suspected) exposure to COVID-19; Z20.828 Contact with and (suspected) exposure to other viral communicable diseases; Z79.899 Other long term (current) drug therapy
CPT/HCPCS: 0241U; 36415; 80048; 80053; 80307; 81001; 81003; 81025; 82077; 83735; 85025; 85610; 87040; 87086; 93005; 96361; 96365; 96366; 96367; 96375; 99285; J0696; J2270; J2405; J3475

== ENCOUNTER → 2022-09-25 11:26 | Outpatient (BNVA) | payer MEDICAID, SELFPAY | PROVIDERS: PCP Internal Medicine; Visit Provider Nurse Practitioner Psychiatric/Mental Health | DX: F10.20 Alcohol dependence, uncomplicated (principal) | CPT/HCPCS: 99212 ==

== ENCOUNTER → 2022-10-08 10:55 | Outpatient (BNVA) | payer MEDICAID, SELFPAY | PROVIDERS: PCP Internal Medicine; Visit Provider Nurse Practitioner Psychiatric/Mental Health | DX: F10.20 Alcohol dependence, uncomplicated (principal) | CPT/HCPCS: 99212 ==

== ENCOUNTER → 2022-11-04 09:17 | Outpatient (BNVA) | payer MEDICAID, SELFPAY | PROVIDERS: PCP Internal Medicine; Visit Provider Nurse Practitioner Psychiatric/Mental Health ==

== ENCOUNTER 2022-11-23 10:36 | Emergency (ER) | payer MEDICAID, SELFPAY ==
[2022-11-23] VITALS (7 sets, daily range): BP systolic 121–174; BP diastolic 72–103; PULSE 80–120; RESP 15–19; TEMP 36.6–36.8; O2SAT 94–98; BMI 25.8
--- NOTE | 2022-11-23 11:52 | ED.ALCOHOL ---
HPI - Alcohol General Chief Complaint: ETOH/Substance Use <YASMINE Manning - Last Filed: 11/23/22 20:19> Stated Complaint: shaking <YASMINE Manning - Last Filed: 11/23/22 20:19> Time Seen by Provider: 11/23/22 11:24 <YASMINE Manning - Last Filed: 11/23/22 20:19> Source: patient <YASMINE Manning - Last Filed: 11/23/22 20:19> Mode of arrival: ambulatory <YASMINE Manning - Last Filed: 11/23/22 20:19> Limitations: no limitations <YASMINE Manning - Last Filed: 11/23/22 20:19> History of Present Illness HPI narrative: 52 yo female with history of ETOH abuse/dependence, history of liver cirrhosis, depression, anxiety, HTN, hx C diff who presents to the ER for evaluation of generalized weakness, nausea, vomiting, with alcohol abuse, seeking detox. She states she has been following with Karely Vallejo NP but has continued struggling with alcohol dependence. She has been drinking 4-8 small bottles of wine and multiple nips of vodka per day. She started feeling weak, nauseated and anxious yesterday. She was scared she was going to . She has not been eating much at the last 2 days, just drinking alcohol. She is depressed and anxious. She wants to get sober. She denies chest pain, SOB, abdominal pain. Last drink was this morning. Last vomited in the waiting room. <YASMINE Manning - Last Filed: 11/23/22 20:19> MD complaint: alcohol dependence and desires rehab <YASMINE Manning - Last Filed: 11/23/22 20:19> Last drink: Hours (ago) <YASMINE Manning - Last Filed: 11/23/22 20:19> Chronic alcohol use: Yes <YASMINE Manning - Last Filed: 11/23/22 20:19> Previous visits for alcohol intoxication: Yes <YASMINE Manning - Last Filed: 11/23/22 20:19> Recent trauma: No <YASMINE Manning - Last Filed: 11/23/22 20:19> Associated symptoms: nausea, vomiting and depression <YASMINE Manning - Last Filed: 11/23/22 20:19> Treatments prior to arrival: none <YASMINE Manning - Last Filed: 11/23/22 20:19> Related Data Home Medications: Home Medications Medication Instructions Recorded Confirmed cholecalciferol (vitamin D3) 50 1 cap PO DAILY 05/17/22 11/23/22 mcg (2,000 unit) capsule cyanocobalamin (vitamin B-12) 500 1 tab PO DAILY 05/17/22 11/23/22 mcg tablet (Vitamin B-12) magnesium oxide 400 mg (241.3 mg 1 tab PO DAILY 05/17/22 11/23/22 magnesium) tablet nadolol 20 mg tablet 20 mg PO DAILY 08/07/22 11/23/22 Previous Rx's Medication Instructions Recorded mirtazapine 7.5 mg tablet 7.5 mg PO BEDTIME #30 tabs 06/03/22 [employer], KULWANT (Reset #1 ea 10/08/22 [employer] [facility] (KULWANT)) acamprosate 333 mg tablet,delayed 666 mg PO TID #180 tabs 11/04/22 release folic acid 1 mg tablet 1 mg PO DAILY #90 tabs 11/04/22 thiamine HCl (vitamin B1) 100 mg 100 mg PO DAILY #90 tabs 11/04/22 tablet <YASMINE Manning - Last Filed: 11/23/22 20:19> Allergies/Adverse Reactions: Allergies Allergy/AdvReac Type Severity Reaction Status Date / Time No Known Allergies Allergy Verified 11/23/22 10:47 <YASMINE Manning - Last Filed: 11/23/22 20:19> Review of Systems Review of Systems: Yes all other systems are reviewed and are negative <YASMINE Manning - Last Filed: 11/23/22 20:19> PMFSH Past Medical History Medical History: Medical History (Updated 11/23/22 @ 16:00 by YASMINE Manning) Alcohol abuse Alcohol use disorder, severe, dependence Alcoholic ketoacidosis Alcoholism Anxiety Dehydration Depression Hypertension Hypertension <YASMINE Manning - Last Filed: 11/23/22 20:19> Surgical History: Surgical History No pertinent past surgical history <YASMINE Manning - Last Filed: 11/23/22 20:19> Family History Family History: Family History Other No family history of coronary artery disease <YASMINE Manning - Last Filed: 11/23/22 20:19> Social History Social History: Social History Household Members: None Housing: House Do you presently have visiting nurse or other home services: No Alcohol intake: current Alcohol intake frequency: 3 or more drinks per day Alcohol type: hard liquor Patient Tobacco Use Status: Never used Tobacco Smoked in Last 30 Days: No Use of substances other than those prescribed or required for medical reasons: No Advance Directives: Yes Advance Directives on File: Yes Advance Directives Date on File: 05/18/22 Patient : No service: No Current occupational status: employed <YASMINE Manning - Last Filed: 11/23/22 20:19> Physical Exam ED Vital Signs: Vital Signs - 24 hr 11/23/22 16:04 11/23/22 19:22 11/23/22 20:00 Temperature 97.9 F 98.2 F Pulse Rate 108 H 95 80 Respiratory Rate 15 18 18 Blood Pressure 143/87 H 121/72 124/72 Pulse Oximetry 95 97 Oxygen Delivery Method Room Air Room Air Room Air 11/24/22 03:21 11/24/22 06:00 11/24/22 07:31 Temperature 98.3 F Pulse Rate 71 69 71 Respiratory Rate 17 17 14 Blood Pressure 109/63 136/81 122/76 Pulse Oximetry 97 96 97 Oxygen Delivery Method Room Air Room Air 11/24/22 10:07 11/24/22 14:39 Temperature 98.3 F Pulse Rate 68 66 Respiratory Rate 16 13 Blood Pressure 103/59 L 110/62 Pulse Oximetry 96 98 Oxygen Delivery Method Room Air Room Air BMI result Body Mass Index 25.8 <YASMINE Manning - Last Filed: 11/23/22 20:19> Vital Signs - 24 hr 11/23/22 16:04 11/23/22 19:22 11/23/22 20:00 Temperature 97.9 F 98.2 F Pulse Rate 108 H 95 80 Respiratory Rate 15 18 18 Blood Pressure 143/87 H 121/72 124/72 Pulse Oximetry 95 97 Oxygen Delivery Method Room Air Room Air Room Air 11/24/22 03:21 11/24/22 06:00 11/24/22 07:31 Temperature 98.3 F Pulse Rate 71 69 71 Respiratory Rate 17 17 14 Blood Pressure 109/63 136/81 122/76 Pulse Oximetry 97 96 97 Oxygen Delivery Method Room Air Room Air 11/24/22 10:07 11/24/22 14:39 Temperature 98.3 F Pulse Rate 68 66 Respiratory Rate 16 13 Blood Pressure 103/59 L 110/62 Pulse Oximetry 96 98 Oxygen Delivery Method Room Air Room Air BMI result Body Mass Index 25.8 <Kishore Roper MD - Last Filed: 11/24/22 14:24> Vital Signs - 24 hr 11/23/22 16:04 11/23/22 19:22 11/23/22 20:00 Temperature 97.9 F 98.2 F Pulse Rate 108 H 95 80 Respiratory Rate 15 18 18 Blood Pressure 143/87 H 121/72 124/72 Pulse Oximetry 95 97 Oxygen Delivery Method Room Air Room Air Room Air 11/24/22 03:21 11/24/22 06:00 11/24/22 07:31 Temperature 98.3 F Pulse Rate 71 69 71 Respiratory Rate 17 17 14 Blood Pressure 109/63 136/81 122/76 Pulse Oximetry 97 96 97 Oxygen Delivery Method Room Air Room Air 11/24/22 10:07 11/24/22 14:39 Temperature 98.3 F Pulse Rate 68 66 Respiratory Rate 16 13 Blood Pressure 103/59 L 110/62 Pulse Oximetry 96 98 Oxygen Delivery Method Room Air Room Air BMI result Body Mass Index 25.8 <YASMINE Tristan - Last Filed: 11/24/22 16:01> Appearance: Alert. Oriented X3. No acute distress. Head: normocephalic, atraumatic. Eyes: Pupils equal, round and reactive to light. ENT: Pharynx normal. No tonsillar swelling or exudate. Fine tongue fasciculations Neck: Normal inspection. Neck supple. CVS: Tachycardic low 100s, regular rhythm. Pulses normal. Respiratory: No respiratory distress. Breath sounds normal. Abdomen: Obese, Soft and nontender. +BS x4 Skin: Skin warm and dry. Normal skin color. Normal skin turgor. No rashes. Extremities: No lower extremity edema. No joint swelling. Mild hand tremor Neuro/psych: Oriented X 3. No motor deficit. No sensory deficit. CN II-XII intact. Normal speech and cognition. Depressed mood, anxious. CIWA 12 <YASMINE Manning - Last Filed: 11/23/22 20:19> Course Reevaluation(s) Reevaluation #1: feeling slightly better after ativan and zofran, HR remain 110-120, IVF infusing. eating and drinking well. <YASMINE Manning - Last Filed: 11/23/22 20:19> Reevaluation #2: given clonidine with improvement in HR 102. spoke with Recovery team - patient would require a level 4 detox facility that is hospital based for her issues of gait instability, cannot go to a regular detox program. no beds available today, may have one available tomorrow. at this time patient has responded well to medictions, CIWA down to a 6. tolerating po and feeling better. she does not feel safe going home. will plan to place patient in physician observation. monitor CIWA Q4. if has increasing ativan requirements or elevated CIWA scores will plan to admit here. recovery team updated on plan of care & will follow up with her tomorrow. physician observation started at 15:40. <YASMINE Manning - Last Filed: 11/23/22 20:19> Reevaluation #3: home meds restarted. HR improved. <YASMINE Manning - Last Filed: 11/23/22 20:19> Additional Reevaluation(s): 1423: Continue physician observation: The patient was seen by the control and recovery combat rescue, Jaya. Given the patient's medical issue she needs a level 4 detox and which she can get more assistance with her medical issues, incontinence and difficulty walking. At this time, the control and recovery combat rescue was not able to find a appropriate facility. Therefore, the patient will be kept in the emergency department until a disposition can be determined. <Kishore Roper MD - Last Filed: 11/24/22 14:24> 1423: Continue physician observation: The patient was seen by the control and recovery combat rescue, Jaya. Given the patient's medical issue she needs a level 4 detox and which she can get more assistance with her medical issues, incontinence and difficulty walking. At this time, the control and recovery combat rescue was not able to find a appropriate facility. Therefore, the patient will be kept in the emergency department until a disposition can be determined. 11/24/2022 1600: Recovery team informed patient they cannot get her into a detox. Patient able to ambulate. Patient ready for discharge. <YASMINE Tristan - Last Filed: 11/24/22 16:01> Medical Decision Making Medical Decision Making MDM Narrative: 52 yo female with history of ETOH abuse/dependence, history of liver cirrhosis, depression, anxiety, HTN, hx C diff who presents to the ER for evaluation of generalized weakness, nausea, vomiting, with alcohol abuse, seeking detox. CIWA 12 on arrival, tachycardic, anxious, nauseated and tremulous. Improved with ativan, IVF and clonidine. ETOH level 269 @ 11:46 am. High risk for withdrawal. Will plan to monitor CIWA q4, ativan 2mg PO q4 hours. follow up with recovery team tomorrow for possible detox placement. monitor closely, may require admission if worsens. <YASMINE Manning - Last Filed: 11/23/22 20:19> Differential Diagnosis Differential Diagnoses: The differential diagnosis associated with the presentation includes <YASMINE Manning Last Filed: 11/23/22 20:19> ETOH intoxication, ETOH withdrawal, polysubstance abuse, electrolyte abnormalities, anemia, dehydration, malnutrition <YASMINE Manning Last Filed: 11/23/22 20:19> Admission/Observation Consideration of admission/observation: Escalation of care including admission/observation considered <YASMINE Manning Last Filed: 11/23/22 20:19> Consult Healthcare Provider Management of the patient was discussed with: Weblogic Developer <YASMINE Manning Last Filed: 11/23/22 20:19> Recovery team Cece Nguyen RN <YASMINE Manning - Last Filed: 11/23/22 20:19> Lab Data [facility] Lab Attestation statement: I reviewed the patient's lab results. <YASMINE Manning - Last Filed: 11/23/22 20:19> mild thrombocytopenia and leukopenia, mild transaminitis c/w etoh abuse <YASMINE Manning - Last Filed: 11/23/22 20:19> Result Diagrams: 11/23/22 11:46 11/23/22 11:46 <YASMINE Manning - Last Filed: 11/23/22 20:19> Labs: Lab Results 11/23/22 11/23/22 11/23/22 Range/Units 11:40 11:46 11:46 WBC 4.4 L (4.8-10.8) X10*3/uL RBC 3.99 L (4.20-5.50) X10*6/uL Hgb 13.1 (12.0-16.0) g/dl Hct 38.9 (37.0-47.0) % MCV 97.5 (80.0-98.0) fL MCH 32.8 (27.0-33.0) pg MCHC 33.7 (31.0-35.0) g/dl RDW 12.5 (11.0-16.0) % Plt Count 121 L D (160-400) X10*3/uL MPV 9.6 (9.4-12.3) fL Immature Gran % (Auto) 0.2 (0.0-0.4) % Neut % (Auto) 62.4 (45-73) % Lymph % (Auto) 29.1 (20-40) % [place] % (Auto) 6.7 (2-11) % Eos % (Auto) 0.0 (0-4) % Baso % (Auto) 1.6 (0-2) % Lymph # (Auto) 1.3 (1.2-4.9) X10*3/uL [place] # (Auto) 0.3 (0.1-1.2) X10*3/uL Eos # (Auto) 0.0 (0.0-0.4) X10*3/uL Baso # (Auto) 0.1 (0.0-0.2) X10*3/uL Abs Immat Gran (auto) 0.01 (0.00-0.03) X10*3/uL Absolute Neuts (auto) 2.7 (2.0-8.3) x10*3/uL Absolute Nucleated RBC 0.000 (0.0-0.012) X10*3/uL Nucleated RBC % (auto) 0.0 (0.0-0.2) /100WBC Sodium 140 (135-145) mmol/L Potassium 3.7 (3.3-5.1) mmol/L Chloride 101 (96-108) mmol/L Carbon Dioxide 22 (22-29) mmol/L Anion Gap 21 H (12-20) BUN 7 L (9-16) mg/dL Creatinine 0.58 (0.5-1.4) mg/dL Estim Creat Clear Calc 125.3 Estimated GFR > 60 Random Glucose 100 (60-115) mg/dL Calcium 9.3 (8.4-10.2) mg/dL Magnesium 1.7 (1.6-2.6) mg/dL Total Bilirubin 1.7 H (0.0-1.0) mg/dL Direct Bilirubin 0.5 (0.0-0.5) mg/dL AST 145 H (5-31) U/L ALT 72 H (0-31) U/L Alkaline Phosphatase 111 (39-117) U/L Total Protein 7.6 (6.5-8.0) g/dL Albumin 4.4 (3.5-5.0) g/dL Urine Color Urine Appearance Urine pH (5.0-9.0) Ur Specific [place]ars (1.005-1.025) Urine Protein (Neg-Trace) mg/dL Urine Glucose (UA) (Negative) mg/dL Urine Ketones (Negative) mg/dL Urine Blood (Negative) Urine Nitrite (Negative) Ur Leukocyte Esterase (Negative) Urine RBC (0-2) /HPF Urine WBC (0-5) /HPF Ur Squamous Epith Cells (0-2) /HPF Urine Bacteria (None Seen) Hyaline Casts (0-2) /LPF Urine Opiates Screen (Not Detect) Urine Fentanyl Screen (Not Detect) Ur Barbiturates Screen (Not Detect) Ur Phencyclidine Scrn (Not Detect) Ur Amphetamines Screen (Not Detect) U Benzodiazepines Scrn (Not Detect) Urine Cocaine Screen (Not Detect) U Marijuana (THC) Screen (Not Detect) Ethyl Alcohol 269 mg/dL COVID-19 (ABUNDIO) Negative (Negative) COVID-19 Clin Com See Note 11/23/22 11/23/22 Range/Units 13:28 13:28 WBC (4.8-10.8) X10*3/uL RBC (4.20-5.50) X10*6/uL Hgb (12.0-16.0) g/dl Hct (37.0-47.0) % MCV (80.0-98.0) fL MCH (27.0-33.0) pg MCHC (31.0-35.0) g/dl RDW (11.0-16.0) % Plt Count (160-400) X10*3/uL MPV (9.4-12.3) fL Immature Gran % (Auto) (0.0-0.4) % Neut % (Auto) (45-73) % Lymph % (Auto) (20-40) % [place] % (Auto) (2-11) % Eos % (Auto) (0-4) % Baso % (Auto) (0-2) % Lymph # (Auto) (1.2-4.9) X10*3/uL [place] # (Auto) (0.1-1.2) X10*3/uL Eos # (Auto) (0.0-0.4) X10*3/uL Baso # (Auto) (0.0-0.2) X10*3/uL Abs Immat Gran (auto) (0.00-0.03) X10*3/uL Absolute Neuts (auto) (2.0-8.3) x10*3/uL Absolute Nucleated RBC (0.0-0.012) X10*3/uL Nucleated RBC % (auto) (0.0-0.2) /100WBC Sodium (135-145) mmol/L Potassium (3.3-5.1) mmol/L Chloride (96-108) mmol/L Carbon Dioxide (22-29) mmol/L Anion Gap (12-20) BUN (9-16) mg/dL Creatinine (0.5-1.4) mg/dL Estim Creat Clear Calc Estimated GFR Random Glucose (60-115) mg/dL Calcium (8.4-10.2) mg/dL Magnesium (1.6-2.6) mg/dL Total Bilirubin (0.0-1.0) mg/dL Direct Bilirubin (0.0-0.5) mg/dL AST (5-31) U/L ALT (0-31) U/L Alkaline Phosphatase (39-117) U/L Total Protein (6.5-8.0) g/dL Albumin (3.5-5.0) g/dL Urine Color Yellow Urine Appearance Clear Urine pH 6.0 (5.0-9.0) Ur Specific [place] 1.015 (1.005-1.025) Urine Protein 30 (1+) H (Neg-Trace) mg/dL Urine Glucose (UA) Negative (Negative) mg/dL Urine Ketones Trace (Negative) mg/dL Urine Blood Negative (Negative) Urine Nitrite Negative (Negative) Ur Leukocyte Esterase Negative (Negative) Urine RBC 0-2 (0-2) /HPF Urine WBC 0-5 (0-5) /HPF Ur Squamous Epith Cells 3-5 (0-2) /HPF Urine Bacteria Trace (None Seen) Hyaline Casts 0-2 (0-2) /LPF Urine Opiates Screen Not Detected (Not Detect) Urine Fentanyl Screen Not Detected (Not Detect) Ur Barbiturates Screen Not Detected (Not Detect) Ur Phencyclidine Scrn Not Detected (Not Detect) Ur Amphetamines Screen Not Detected (Not Detect) U Benzodiazepines Scrn Not Detected (Not Detect) Urine Cocaine Screen Not Detected (Not Detect) U Marijuana (THC) Screen Not Detected (Not Detect) Ethyl Alcohol mg/dL COVID-19 (ABUNDIO) (Negative) COVID-19 Clin Com <YASMINE Manning - Last Filed: 11/23/22 20:19> Lab Results 11/23/22 11/23/22 11/23/22 Range/Units 11:40 11:46 11:46 WBC 4.4 L (4.8-10.8) X10*3/uL RBC 3.99 L (4.20-5.50) X10*6/uL Hgb 13.1 (12.0-16.0) g/dl Hct 38.9 (37.0-47.0) % MCV 97.5 (80.0-98.0) fL MCH 32.8 (27.0-33.0) pg MCHC 33.7 (31.0-35.0) g/dl RDW 12.5 (11.0-16.0) % Plt Count 121 L D (160-400) X10*3/uL MPV 9.6 (9.4-12.3) fL Immature Gran % (Auto) 0.2 (0.0-0.4) % Neut % (Auto) 62.4 (45-73) % Lymph % (Auto) 29.1 (20-40) % [place] % (Auto) 6.7 (2-11) % Eos % (Auto) 0.0 (0-4) % Baso % (Auto) 1.6 (0-2) % Lymph # (Auto) 1.3 (1.2-4.9) X10*3/uL [place] # (Auto) 0.3 (0.1-1.2) X10*3/uL Eos # (Auto) 0.0 (0.0-0.4) X10*3/uL Baso # (Auto) 0.1 (0.0-0.2) X10*3/uL Abs Immat Gran (auto) 0.01 (0.00-0.03) X10*3/uL Absolute Neuts (auto) 2.7 (2.0-8.3) x10*3/uL Absolute Nucleated RBC 0.000 (0.0-0.012) X10*3/uL Nucleated RBC % (auto) 0.0 (0.0-0.2) /100WBC Sodium 140 (135-145) mmol/L Potassium 3.7 (3.3-5.1) mmol/L Chloride 101 (96-108) mmol/L Carbon Dioxide 22 (22-29) mmol/L Anion Gap 21 H (12-20) BUN 7 L (9-16) mg/dL Creatinine 0.58 (0.5-1.4) mg/dL Estim Creat Clear Calc 125.3 Estimated GFR > 60 Random Glucose 100 (60-115) mg/dL Calcium 9.3 (8.4-10.2) mg/dL Magnesium 1.7 (1.6-2.6) mg/dL Total Bilirubin 1.7 H (0.0-1.0) mg/dL Direct Bilirubin 0.5 (0.0-0.5) mg/dL AST 145 H (5-31) U/L ALT 72 H (0-31) U/L Alkaline Phosphatase 111 (39-117) U/L Total Protein 7.6 (6.5-8.0) g/dL Albumin 4.4 (3.5-5.0) g/dL Urine Color Urine Appearance Urine pH (5.0-9.0) Ur Specific [place] (1.005-1.025) Urine Protein (Neg-Trace) mg/dL Urine Glucose (UA) (Negative) mg/dL Urine Ketones (Negative) mg/dL Urine Blood (Negative) Urine Nitrite (Negative) Ur Leukocyte Esterase (Negative) Urine RBC (0-2) /HPF Urine WBC (0-5) /HPF Ur Squamous Epith Cells (0-2) /HPF Urine Bacteria (None Seen) Hyaline Casts (0-2) /LPF Urine Opiates Screen (Not Detect) Urine Fentanyl Screen (Not Detect) Ur Barbiturates Screen (Not Detect) Ur Phencyclidine Scrn (Not Detect) Ur Amphetamines Screen (Not Detect) U Benzodiazepines Scrn (Not Detect) Urine Cocaine Screen (Not Detect) U Marijuana (THC) Screen (Not Detect) Ethyl Alcohol 269 mg/dL COVID-19 (ABUNDIO) Negative (Negative) COVID-19 Clin Com See Note 11/23/22 11/23/22 Range/Units 13:28 13:28 WBC (4.8-10.8) X10*3/uL RBC (4.20-5.50) X10*6/uL Hgb (12.0-16.0) g/dl Hct (37.0-47.0) % MCV (80.0-98.0) fL MCH (27.0-33.0) pg MCHC (31.0-35.0) g/dl RDW (11.0-16.0) % Plt Count (160-400) X10*3/uL MPV (9.4-12.3) fL Immature Gran % (Auto) (0.0-0.4) % Neut % (Auto) (45-73) % Lymph % (Auto) (20-40) % [place] % (Auto) (2-11) % Eos % (Auto) (0-4) % Baso % (Auto) (0-2) % Lymph # (Auto) (1.2-4.9) X10*3/uL [place] # (Auto) (0.1-1.2) X10*3/uL Eos # (Auto) (0.0-0.4) X10*3/uL Baso # (Auto) (0.0-0.2) X10*3/uL Abs Immat Gran (auto) (0.00-0.03) X10*3/uL Absolute Neuts (auto) (2.0-8.3) x10*3/uL Absolute Nucleated RBC (0.0-0.012) X10*3/uL Nucleated RBC % (auto) (0.0-0.2) /100WBC Sodium (135-145) mmol/L Potassium (3.3-5.1) mmol/L Chloride (96-108) mmol/L Carbon Dioxide (22-29) mmol/L Anion Gap (12-20) BUN (9-16) mg/dL Creatinine (0.5-1.4) mg/dL Estim Creat Clear Calc Estimated GFR Random Glucose (60-115) mg/dL Calcium (8.4-10.2) mg/dL Magnesium (1.6-2.6) mg/dL Total Bilirubin (0.0-1.0) mg/dL Direct Bilirubin (0.0-0.5) mg/dL AST (5-31) U/L ALT (0-31) U/L Alkaline Phosphatase (39-117) U/L Total Protein (6.5-8.0) g/dL Albumin (3.5-5.0) g/dL Urine Color Yellow Urine Appearance Clear Urine pH 6.0 (5.0-9.0) Ur Specific [place] 1.015 (1.005-1.025) Urine Protein 30 (1+) H (Neg-Trace) mg/dL Urine Glucose (UA) Negative (Negative) mg/dL Urine Ketones Trace (Negative) mg/dL Urine Blood Negative (Negative) Urine Nitrite Negative (Negative) Ur Leukocyte Esterase Negative (Negative) Urine RBC 0-2 (0-2) /HPF Urine WBC 0-5 (0-5) /HPF Ur Squamous Epith Cells 3-5 (0-2) /HPF Urine Bacteria Trace (None Seen) Hyaline Casts 0-2 (0-2) /LPF Urine Opiates Screen Not Detected (Not Detect) Urine Fentanyl Screen Not Detected (Not Detect) Ur Barbiturates Screen Not Detected (Not Detect) Ur Phencyclidine Scrn Not Detected (Not Detect) Ur Amphetamines Screen Not Detected (Not Detect) U Benzodiazepines Scrn Not Detected (Not Detect) Urine Cocaine Screen Not Detected (Not Detect) U Marijuana (THC) Screen Not Detected (Not Detect) Ethyl Alcohol mg/dL COVID-19 (ABUNDIO) (Negative) COVID-19 Clin Com <Kishore Roper MD - Last Filed: 11/24/22 14:24> Lab Results 11/23/22 11/23/22 11/23/22 Range/Units 11:40 11:46 11:46 WBC 4.4 L (4.8-10.8) X10*3/uL RBC 3.99 L (4.20-5.50) X10*6/uL Hgb 13.1 (12.0-16.0) g/dl Hct 38.9 (37.0-47.0) % MCV 97.5 (80.0-98.0) fL MCH 32.8 (27.0-33.0) pg MCHC 33.7 (31.0-35.0) g/dl RDW 12.5 (11.0-16.0) % Plt Count 121 L D (160-400) X10*3/uL MPV 9.6 (9.4-12.3) fL Immature Gran % (Auto) 0.2 (0.0-0.4) % Neut % (Auto) 62.4 (45-73) % Lymph % (Auto) 29.1 (20-40) % [place] % (Auto) 6.7 (2-11) % Eos % (Auto) 0.0 (0-4) % Baso % (Auto) 1.6 (0-2) % Lymph # (Auto) 1.3 (1.2-4.9) X10*3/uL [place] # (Auto) 0.3 (0.1-1.2) X10*3/uL Eos # (Auto) 0.0 (0.0-0.4) X10*3/uL Baso # (Auto) 0.1 (0.0-0.2) X10*3/uL Abs Immat Gran (auto) 0.01 (0.00-0.03) X10*3/uL Absolute Neuts (auto) 2.7 (2.0-8.3) x10*3/uL Absolute Nucleated RBC 0.000 (0.0-0.012) X10*3/uL Nucleated RBC % (auto) 0.0 (0.0-0.2) /100WBC Sodium 140 (135-145) mmol/L Potassium 3.7 (3.3-5.1) mmol/L Chloride 101 (96-108) mmol/L Carbon Dioxide 22 (22-29) mmol/L Anion Gap 21 H (12-20) BUN 7 L (9-16) mg/dL Creatinine 0.58 (0.5-1.4) mg/dL Estim Creat Clear Calc 125.3 Estimated GFR > 60 Random Glucose 100 (60-115) mg/dL Calcium 9.3 (8.4-10.2) mg/dL Magnesium 1.7 (1.6-2.6) mg/dL Total Bilirubin 1.7 H (0.0-1.0) mg/dL Direct Bilirubin 0.5 (0.0-0.5) mg/dL AST 145 H (5-31) U/L ALT 72 H (0-31) U/L Alkaline Phosphatase 111 (39-117) U/L Total Protein 7.6 (6.5-8.0) g/dL Albumin 4.4 (3.5-5.0) g/dL Urine Color Urine Appearance Urine pH (5.0-9.0) Ur Specific [place] (1.005-1.025) Urine Protein (Neg-Trace) mg/dL Urine Glucose (UA) (Negative) mg/dL Urine Ketones (Negative) mg/dL Urine Blood (Negative) Urine Nitrite (Negative) Ur Leukocyte Esterase (Negative) Urine RBC (0-2) /HPF Urine WBC (0-5) /HPF Ur Squamous Epith Cells (0-2) /HPF Urine Bacteria (None Seen) Hyaline Casts (0-2) /LPF Urine Opiates Screen (Not Detect) Urine Fentanyl Screen (Not Detect) Ur Barbiturates Screen (Not Detect) Ur Phencyclidine Scrn (Not Detect) Ur Amphetamines Screen (Not Detect) U Benzodiazepines Scrn (Not Detect) Urine Cocaine Screen (Not Detect) U Marijuana (THC) Screen (Not Detect) Ethyl Alcohol 269 mg/dL COVID-19 (ABUNDIO) Negative (Negative) COVID-19 Clin Com See Note 11/23/22 11/23/22 Range/Units 13:28 13:28 WBC (4.8-10.8) X10*3/uL RBC (4.20-5.50) X10*6/uL Hgb (12.0-16.0) g/dl Hct (37.0-47.0) % MCV (80.0-98.0) fL MCH (27.0-33.0) pg MCHC (31.0-35.0) g/dl RDW (11.0-16.0) % Plt Count (160-400) X10*3/uL MPV (9.4-12.3) fL Immature Gran % (Auto) (0.0-0.4) % Neut % (Auto) (45-73) % Lymph % (Auto) (20-40) % [place] % (Auto) (2-11) % Eos % (Auto) (0-4) % Baso % (Auto) (0-2) % Lymph # (Auto) (1.2-4.9) X10*3/uL [place] # (Auto) (0.1-1.2) X10*3/uL Eos # (Auto) (0.0-0.4) X10*3/uL Baso # (Auto) (0.0-0.2) X10*3/uL Abs Immat Gran (auto) (0.00-0.03) X10*3/uL Absolute Neuts (auto) (2.0-8.3) x10*3/uL Absolute Nucleated RBC (0.0-0.012) X10*3/uL Nucleated RBC % (auto) (0.0-0.2) /100WBC Sodium (135-145) mmol/L Potassium (3.3-5.1) mmol/L Chloride (96-108) mmol/L Carbon Dioxide (22-29) mmol/L Anion Gap (12-20) BUN (9-16) mg/dL Creatinine (0.5-1.4) mg/dL Estim Creat Clear Calc Estimated GFR Random Glucose (60-115) mg/dL Calcium (8.4-10.2) mg/dL Magnesium (1.6-2.6) mg/dL Total Bilirubin (0.0-1.0) mg/dL Direct Bilirubin (0.0-0.5) mg/dL AST (5-31) U/L ALT (0-31) U/L Alkaline Phosphatase (39-117) U/L Total Protein (6.5-8.0) g/dL Albumin (3.5-5.0) g/dL Urine Color Yellow Urine Appearance Clear Urine pH 6.0 (5.0-9.0) Ur Specific [place] 1.015 (1.005-1.025) Urine Protein 30 (1+) H (Neg-Trace) mg/dL Urine Glucose (UA) Negative (Negative) mg/dL Urine Ketones Trace (Negative) mg/dL Urine Blood Negative (Negative) Urine Nitrite Negative (Negative) Ur Leukocyte Esterase Negative (Negative) Urine RBC 0-2 (0-2) /HPF Urine WBC 0-5 (0-5) /HPF Ur Squamous Epith Cells 3-5 (0-2) /HPF Urine Bacteria Trace (None Seen) Hyaline Casts 0-2 (0-2) /LPF Urine Opiates Screen Not Detected (Not Detect) Urine Fentanyl Screen Not Detected (Not Detect) Ur Barbiturates Screen Not Detected (Not Detect) Ur Phencyclidine Scrn Not Detected (Not Detect) Ur Amphetamines Screen Not Detected (Not Detect) U Benzodiazepines Scrn Not Detected (Not Detect) Urine Cocaine Screen Not Detected (Not Detect) U Marijuana (THC) Screen Not Detected (Not Detect) Ethyl Alcohol mg/dL COVID-19 (ABUNDIO) (Negative) COVID-19 Clin Com <YASMINE Tristan - Last Filed: 11/24/22 16:01> Independent Interpretation I performed an independent interpretation of an: EKG <YASMINE Manning - Last Filed: 11/23/22 20:19> Interpretation: sinus tachycardia, HR 116, normal AL interval, normal QTc, no ST segment elevations or depressions <YASMINE Manning - Last Filed: 11/23/22 20:19> External Record Review External record reviewed: Office record, Outpatient record, Prior outpatient labs and Prior outpatient radiology <YASMINE Manning - Last Filed: 11/23/22 20:19> Prescription Management I considered prescription management with: Other (benzodiazapines ) <YASMINE Manning - Last Filed: 11/23/22 20:19> Chronic Conditions Patient?s care impacted by: Other (alcohol use disorder) <YASMINE Manning - Last Filed: 11/23/22 20:19> Social Determinants Patient?s care significantly limited by Social Determinants of Health including: Alcoholism and drug addiction in family and Other Social Determinant of Health <YASMINE Manning - Last Filed: 11/23/22 20:19> Medications Administered Generic Name Dose Route Start Last Admin Trade Name Freq PRN Reason Stop Dose Admin Acetaminophen 650 mg 11/23/22 20:13 11/23/22 20:34 Acetaminophen 325 Mg Tablet PO 650 mg Q6H PRN Administration mild pain Clonidine HCl 0.1 mg 11/23/22 21:00 11/24/22 08:51 Clonidine Hcl 0.1 Mg Tablet PO 0.1 mg BID LEORA Administration Protocol Cyanocobalamin 500 mcg 11/24/22 09:00 11/24/22 08:51 Cyanocobalamin (Vitamin B-12) 500 Mcg Tablet PO 500 mcg DAILY LEORA Administration Folic Acid 1 mg 11/24/22 09:00 11/24/22 08:51 Folic Acid 1 Mg Tablet PO 1 mg DAILY LEORA Administration Lorazepam 2 mg 11/23/22 15:56 11/23/22 20:58 Lorazepam 1 Mg Tablet PO 2 mg Q4H PRN Administration alcohol withdrawal Magnesium Oxide 400 mg 11/24/22 09:00 11/24/22 08:51 Magnesium Oxide 400 Mg Tablet PO 400 mg DAILY LEORA Administration Mirtazapine 7.5 mg 11/23/22 21:00 11/23/22 20:56 Mirtazapine 7.5 Mg Tablet PO 7.5 mg BEDTIME LEORA Administration Nadolol 20 mg 11/23/22 18:00 11/24/22 09:24 Nadolol 20 Mg Tablet PO 20 mg DAILY LEORA Administration Protocol Thiamine HCl 100 mg 11/24/22 09:00 11/24/22 08:51 Thiamine Hcl 100 Mg Tablet PO 100 mg DAILY LEORA Administration Vitamin D 50 mcg 11/24/22 09:00 11/24/22 08:52 Cholecalciferol (Vitamin D3) 25 Mcg Tablet PO 50 mcg DAILY LEORA Administration Discontinued Medications Generic Name Dose Route Start Last Admin Trade Name Leah PRN Reason Stop Dose Admin Clonidine HCl 0.2 mg 11/23/22 14:56 11/23/22 16:02 Clonidine Hcl 0.2 Mg Tablet PO 11/23/22 14:57 0.2 mg ONCE ONE Administration Protocol Lactated Ringer's 1,000 mls @ 999 mls/hr 11/23/22 11:45 11/23/22 13:25 Lr IV 11/23/22 12:45 Infused .Q1H1M LEORA Infusion Magnesium Sulfate 2 gm in 50 mls @ 25 mls/hr 11/23/22 12:38 11/23/22 15:10 Magnesium Sulfate/H2o IV 11/23/22 14:37 Infused ONCE ONE Infusion Lorazepam 2 mg 11/23/22 12:13 11/23/22 12:19 Lorazepam 2 Mg/Ml Vial IVPUSH 11/23/22 12:14 2 mg ONCE ONE Administration Lorazepam 1 mg 11/23/22 14:56 11/23/22 16:03 Lorazepam 1 Mg Tablet PO 11/23/22 14:57 1 mg ONCE ONE Administration Melatonin 6 mg 11/23/22 20:45 11/23/22 20:56 Melatonin 3 Mg Tablet PO 11/23/22 20:46 6 mg ONCE ONE Administration Ondansetron HCl 4 mg 11/23/22 11:36 11/23/22 11:58 Ondansetron Hcl 4 Mg/2 Ml Vial IVPUSH 11/23/22 11:37 4 mg ONCE ONE Administration <YASMINE Manning - Last Filed: 11/23/22 20:19> Medications Administered Generic Name Dose Route Start Last Admin Trade Name Leah PRN Reason Stop Dose Admin Acetaminophen 650 mg 11/23/22 20:13 11/23/22 20:34 Acetaminophen 325 Mg Tablet PO 650 mg Q6H PRN Administration mild pain Clonidine HCl 0.1 mg 11/23/22 21:00 11/24/22 08:51 Clonidine Hcl 0.1 Mg Tablet PO 0.1 mg BID LEORA Administration Protocol Cyanocobalamin 500 mcg 11/24/22 09:00 11/24/22 08:51 Cyanocobalamin (Vitamin B-12) 500 Mcg Tablet PO 500 mcg DAILY LEORA Administration Folic Acid 1 mg 11/24/22 09:00 11/24/22 08:51 Folic Acid 1 Mg Tablet PO 1 mg DAILY LEORA Administration Lorazepam 2 mg 11/23/22 15:56 11/23/22 20:58 Lorazepam 1 Mg Tablet PO 2 mg Q4H PRN Administration alcohol withdrawal Magnesium Oxide 400 mg 11/24/22 09:00 11/24/22 08:51 Magnesium Oxide 400 Mg Tablet PO 400 mg DAILY LEORA Administration Mirtazapine 7.5 mg 11/23/22 21:00 11/23/22 20:56 Mirtazapine 7.5 Mg Tablet PO 7.5 mg BEDTIME LEORA Administration Nadolol 20 mg 11/23/22 18:00 11/24/22 09:24 Nadolol 20 Mg Tablet PO 20 mg DAILY LEORA Administration Protocol Thiamine HCl 100 mg 11/24/22 09:00 11/24/22 08:51 Thiamine Hcl 100 Mg Tablet PO 100 mg DAILY LEORA Administration Vitamin D 50 mcg 11/24/22 09:00 11/24/22 08:52 Cholecalciferol (Vitamin D3) 25 Mcg Tablet PO 50 mcg DAILY LEORA Administration Discontinued Medications Generic Name Dose Route Start Last Admin Trade Name Freq PRN Reason Stop Dose Admin Clonidine HCl 0.2 mg 11/23/22 14:56 11/23/22 16:02 Clonidine Hcl 0.2 Mg Tablet PO 11/23/22 14:57 0.2 mg ONCE ONE Administration Protocol Lactated Ringer's 1,000 mls @ 999 mls/hr 11/23/22 11:45 11/23/22 13:25 Lr IV 11/23/22 12:45 Infused .Q1H1M LEORA Infusion Magnesium Sulfate 2 gm in 50 mls @ 25 mls/hr 11/23/22 12:38 11/23/22 15:10 Magnesium Sulfate/H2o IV 11/23/22 14:37 Infused ONCE ONE Infusion Lorazepam 2 mg 11/23/22 12:13 11/23/22 12:19 Lorazepam 2 Mg/Ml Vial IVPUSH 11/23/22 12:14 2 mg ONCE ONE Administration Lorazepam 1 mg 11/23/22 14:56 11/23/22 16:03 Lorazepam 1 Mg Tablet PO 11/23/22 14:57 1 mg ONCE ONE Administration Melatonin 6 mg 11/23/22 20:45 11/23/22 20:56 Melatonin 3 Mg Tablet PO 11/23/22 20:46 6 mg ONCE ONE Administration Ondansetron HCl 4 mg 11/23/22 11:36 11/23/22 11:58 Ondansetron Hcl 4 Mg/2 Ml Vial IVPUSH 11/23/22 11:37 4 mg ONCE ONE Administration <Kishore Roper MD - Last Filed: 11/24/22 14:24> Medications Administered Generic Name Dose Route Start Last Admin Trade Name Leah PRN Reason Stop Dose Admin Acetaminophen 650 mg 11/23/22 20:13 11/23/22 20:34 Acetaminophen 325 Mg Tablet PO 650 mg Q6H PRN Administration mild pain Clonidine HCl 0.1 mg 11/23/22 21:00 11/24/22 08:51 Clonidine Hcl 0.1 Mg Tablet PO 0.1 mg BID LEORA Administration Protocol Cyanocobalamin 500 mcg 11/24/22 09:00 11/24/22 08:51 Cyanocobalamin (Vitamin B-12) 500 Mcg Tablet PO 500 mcg DAILY LEORA Administration Folic Acid 1 mg 11/24/22 09:00 11/24/22 08:51 Folic Acid 1 Mg Tablet PO 1 mg DAILY LEORA Administration Lorazepam 2 mg 11/23/22 15:56 11/23/22 20:58 Lorazepam 1 Mg Tablet PO 2 mg Q4H PRN Administration alcohol withdrawal Magnesium Oxide 400 mg 11/24/22 09:00 11/24/22 08:51 Magnesium Oxide 400 Mg Tablet PO 400 mg DAILY LEORA Administration Mirtazapine 7.5 mg 11/23/22 21:00 11/23/22 20:56 Mirtazapine 7.5 Mg Tablet PO 7.5 mg BEDTIME LEORA Administration Nadolol 20 mg 11/23/22 18:00 11/24/22 09:24 Nadolol 20 Mg Tablet PO 20 mg DAILY LEORA Administration Protocol Thiamine HCl 100 mg 11/24/22 09:00 11/24/22 08:51 Thiamine Hcl 100 Mg Tablet PO 100 mg DAILY LEORA Administration Vitamin D 50 mcg 11/24/22 09:00 11/24/22 08:52 Cholecalciferol (Vitamin D3) 25 Mcg Tablet PO 50 mcg DAILY LEORA Administration Discontinued Medications Generic Name Dose Route Start Last Admin Trade Name Leah PRN Reason Stop Dose Admin Clonidine HCl 0.2 mg 11/23/22 14:56 11/23/22 16:02 Clonidine Hcl 0.2 Mg Tablet PO 11/23/22 14:57 0.2 mg ONCE ONE Administration Protocol Lactated Ringer's 1,000 mls @ 999 mls/hr 11/23/22 11:45 11/23/22 13:25 Lr IV 11/23/22 12:45 Infused .Q1H1M LEORA Infusion Magnesium Sulfate 2 gm in 50 mls @ 25 mls/hr 11/23/22 12:38 11/23/22 15:10 Magnesium Sulfate/H2o IV 11/23/22 14:37 Infused ONCE ONE Infusion Lorazepam 2 mg 11/23/22 12:13 11/23/22 12:19 Lorazepam 2 Mg/Ml Vial IVPUSH 11/23/22 12:14 2 mg ONCE ONE Administration Lorazepam 1 mg 11/23/22 14:56 11/23/22 16:03 Lorazepam 1 Mg Tablet PO 11/23/22 14:57 1 mg ONCE ONE Administration Melatonin 6 mg 11/23/22 20:45 11/23/22 20:56 Melatonin 3 Mg Tablet PO 11/23/22 20:46 6 mg ONCE ONE Administration Ondansetron HCl 4 mg 11/23/22 11:36 11/23/22 11:58 Ondansetron Hcl 4 Mg/2 Ml Vial IVPUSH 11/23/22 11:37 4 mg ONCE ONE Administration <YASMINE Tristan - Last Filed: 11/24/22 16:01> Critical Care Time Critical Care Time Critical Care Time: No <YASMINE Manning - Last Filed: 11/23/22 20:19> Discharge Plan Discharge Clinical Impression: Alcoholic intoxication, Alcohol use disorder, severe, dependence <YASMINE Manning - Last Filed: 11/23/22 20:19> Patient Disposition: Home, Self-Care <YASMINE Manning - Last Filed: 11/23/22 20:19> Instructions: Alcohol Use Disorder (ED) <YASMINE Manning - Last Filed: 11/23/22 20:19> Additional Instructions: Follow up with your primary care provider. Return to the emergency department immediately if your symptoms worsen or if you develop any dizziness, shortness of breath, difficulty breathing, chest pain, blurry vision, loss of vision, nausea, vomiting, abdominal pain, fever, chills, back pain, or any other complaints. <YASMINE Manning - Last Filed: 11/23/22 20:19> Prescriptions: No Action magnesium oxide 400 mg (241.3 mg magnesium) tablet 1 tab PO DAILY cyanocobalamin (vitamin B-12) [Vitamin B-12] 500 mcg tablet 1 tab PO DAILY cholecalciferol (vitamin D3) 50 mcg (2,000 unit) capsule 1 cap PO DAILY nadolol 20 mg Tablet 20 mg PO DAILY mirtazapine 7.5 mg tablet 7.5 mg PO BEDTIME Qty: 30 0RF (DME) Reset Digital Joseph (KULWANT) Misc See Rx Instructions .MEDSUPPLY Qty: 1 0RF Rx Instructions: As directed (3-4 times a week) 90 days acamprosate 333 mg tablet,delayed release (DR/EC) 666 mg PO TID Qty: 180 0RF folic acid 1 mg tablet 1 mg PO DAILY Qty: 90 1RF thiamine HCl (vitamin B1) 100 mg tablet 100 mg PO DAILY Qty: 90 0RF <YASMINE Manning - Last Filed: 11/23/22 20:19> Referrals: Marino Goodson MD [Primary Care Provider] - <YASMINE Manning - Last Filed: 11/23/22 20:19> Print Language: Danish <YASMINE Manning - Last Filed: 11/23/22 20:19>
[2022-11-23 11:55] LABS: MANUAL DIFF FLAG NO
[2022-11-23] MEDS: ondansetron HCL 4 MG/2 ML VIAL IVPUSH (11:58)
[2022-11-23] MEDS: Lactated Ringers 1,000 ML 999 ML IV (11:58)
[2022-11-23 12:00] LABS: COVID-19 Test Negative (Negative); IDNOW Serial# BCCEAD1C
--- NOTE | 2022-11-23 12:02 | PC.NURSE ---
patient currently a&ox3, tearful wanting to stop drinking, pt admits to drinking 1hr ago- states she had 2 packages of marc home and multiple shots of vodka. Pt c/o body tremors and anxity also states she has vomited prior to coming in as well as continued nausea. cylinder grinder applied- sinus tach on monitor, vitals otherwise stable, iv inserted labs drawn, ivf hung per order, pt medicated per order, ciwa score 12 will notify provider, call jay within reach, will continue to monitor.
[2022-11-23 12:03] LABS: Basophils Absolute Auto 0.1 X10*3/uL (0.0-0.2); Basophils Percent Auto 1.6 % (0-2); Hematocrit 38.9 % (37.0-47.0); Hemoglobin 13.1 g/dl (12.0-16.0); Imm Gran Abs Auto 0.01 X10*3/uL (0.00-0.03); Imm Gran Pct Auto 0.2 % (0.0-0.4); Lymphocytes Absolute Auto 1.3 X10*3/uL (1.2-4.9); Lymphocytes Percent Auto 29.1 % (20-40); Mean Corpuscular HGB Conc 33.7 g/dl (31.0-35.0); Mean Corpuscular Hemoglobin 32.8 pg (27.0-33.0); Mean Corpuscular Volume 97.5 fL (80.0-98.0); Mean Platelet Volume 9.6 fL (9.4-12.3); Monocytes Absolute Auto 0.3 X10*3/uL (0.1-1.2); Monocytes Percent Auto 6.7 % (2-11); Neutrophils Absolute Auto 2.7 x10*3/uL (2.0-8.3); Neutrophils Percent Auto 62.4 % (45-73); Platelet Count 121 X10*3/uL (160-400); Red Blood Count 3.99 X10*6/uL (4.20-5.50); Red Cell Distribution Width 12.5 % (11.0-16.0); White Blood Count 4.4 X10*3/uL (4.8-10.8)
[2022-11-23] MEDS: LORazepam 2 MG/ML VIAL IVPUSH (12:19)
--- NOTE | 2022-11-23 12:25 | PC.NURSE ---
provider notified of ciwa 12- ativan adminitered per order, provider ok'd patient to have food/drink- pt given gingerale and PB&J sandwich per her request, call jay within reach, will continue to monitor.
[2022-11-23 12:28] LABS: Alanine Aminotransferase 72 U/L (0-31); Albumin Level 4.4 g/dL (3.5-5.0); Alkaline Phosphatase 111 U/L (39-117); Anion Gap 21 (12-20); Aspartate Amino Transferase 145 U/L (5-31); Bilirubin Direct 0.5 mg/dL (0.0-0.5); Bilirubin Total 1.7 mg/dL (0.0-1.0); Blood Urea Nitrogen 7 mg/dL (9-16); Calcium 9.3 mg/dL (8.4-10.2); Carbon Dioxide 22 mmol/L (22-29); Chloride 101 mmol/L (96-108); Creatinine Clr Calc Pharmacy 125.3; Estimated Glomerular Filt Rate > 60; Ethanol 269 mg/dL; Glucose Random 100 mg/dL (60-115); Magnesium 1.7 mg/dL (1.6-2.6); Potassium 3.7 mmol/L (3.3-5.1); Sodium 140 mmol/L (135-145); Total Protein 7.6 g/dL (6.5-8.0)
[2022-11-23] MEDS: Magnesium Sulfate/H2O 2 GM/50 ML PIGGYBACK IV (13:08)
--- NOTE | 2022-11-23 13:12 | PC.NURSE ---
magnesium running per order.
--- NOTE | 2022-11-23 13:32 | PC.NURSE ---
pt AOx3, mag running, vitals stable. pt reports increased appetite. urine sample sent to lab
[2022-11-23 13:51] LABS: Appearance Urine Clear; Color Urine Yellow; Glucose Urine UA Negative (Negative); Leukocyte Esterase Urine Negative (Negative); Nitrite Urine Negative (Negative); Specific Gravity - Urine 1.015 (1.005-1.025); UMIC TRIGGER UACC YES; Urine Blood Negative (Negative); Urine Ketones Trace mg/dL (Negative); Urine Protein 30 (1+) mg/dL (Neg-Trace)
[2022-11-23 13:54] LABS: Bacteria Urine Trace (None Seen); Hyaline Casts Urine 0-2 /LPF (0-2); RBC Urine 0-2 /HPF (0-2); WBC Urine 0-5 /HPF (0-5)
--- NOTE | 2022-11-23 14:03 | MHC.RECOVSUP ---
Met with pt in ED14 for potential ATS bed search and recovery resources provided. Pt informs that she had been drinking 1 ? liters of wine and 6 nips a day since September. Pt shares that she would like to go to an ATS as she does not want to . Pt does not meet the level of care for ATS, referral to [facility] placed.? Pt currently doing phone screen with [facility].
--- NOTE | 2022-11-23 14:16 | ECG_ITS ---
Test Reason : TACHYCARDIA Blood Pressure : / mmHG Vent. Rate : 116 BPM Atrial Rate : 116 BPM P-R Int : 158 ms QRS Dur : 080 ms QT Int : 336 ms P-R-T Axes : -01 -24 -08 degrees QTc Int : 467 ms Sinus tachycardia Septal infarct , age undetermined Abnormal ECG When compared with ECG of 22-SEP-2022 21:28, Vent. rate has increased BY 40 BPM Septal infarct is now Present Referred By: Eva Kauffman Electronically Signed By:Les Lacey
[2022-11-23 14:17] LABS: Amphetamine Screen Urine Not Detected (Not Detect); Barbiturates, Urine Not Detected (Not Detect); Benzodiazepines Screen Urine Not Detected (Not Detect); Cannabinoid Screen Urine Not Detected (Not Detect); Cocaine Screen Urine Not Detected (Not Detect); Fentanyl, urine Not Detected (Not Detect); Opiate Screen Urine Not Detected (Not Detect); Phencyclidine Screen Urine Not Detected (Not Detect)
[2022-11-23] MEDS: cloNIDine HCL 0.2 MG TABLET PO (16:02)
[2022-11-23] MEDS: LORazepam 1 MG TABLET PO (16:03)
--- NOTE | 2022-11-23 16:25 | MHC.RECOVSUP ---
Pt staying overnight, will follow up with [facility] in the morning for bed availability.
--- NOTE | 2022-11-23 16:26 | PHA.MEDREC ---
Patient stop taking Acamproste 333 mg tablets bout 2 weeks ago . Pharmacy Consult ? Medication Reconciliation Pharmacy has completed the medication reconciliation.
[2022-11-23] MEDS: nadoloL 20 MG TABLET PO (19:50)
--- NOTE | 2022-11-23 20:10 | PC.NURSE ---
pt reporting 7/10 lower leg discomfort and pain
[2022-11-23] MEDS: Acetaminophen 325 MG TABLET 650 MG PO (20:34)
[2022-11-23] MEDS: cloNIDine HCL 0.1 MG TABLET PO (20:55)
[2022-11-23] MEDS: Mirtazapine 7.5 MG TABLET PO (20:56)
[2022-11-23] MEDS: Melatonin 3 MG TABLET 6 MG PO (20:56)
[2022-11-23] MEDS: LORazepam 1 MG TABLET 2 MG PO (20:58)
--- NOTE | 2022-11-23 21:00 | PC.NURSE ---
pt medicated per order. 2mg of PRN Ativan given per provider instruction for anxiety/alcohol withdrawal
--- NOTE | 2022-11-23 21:29 | MHC.RECOVSUP ---
? Reason for consult:Recovery Support o Current location: ED14 o ?Identified substance use concern: AUD ? - Seeking ATS (detox) - Support ? Additional information: [facility] wasn't able to connect with pt, she was sleeping. Recovery team will follow up in the morning?
--- NOTE | 2022-11-24 03:08 | PC.NURSE ---
Addendum entered by Mary Amaya 11/24/22 03:18: Pt also moved closer to the nurses station. Original Note: This RN notified by Yahaira SAGE that this pt was found on the floor on her knees. Pt assisted up and into bed by [facility] [employer]. Anwer at bedside for an eval. Per pt, she became weak while attempting to get OOB to use the commode and fell onto her knees. Pt denies headstrike, denies injuries. Fall precautions in place, bed rails up, call jay within reach. Plan for a hospital bed with bed alarm.
[2022-11-24 03:21] VITALS: BP 109/63; PULSE 71; RESP 17; O2SAT 97
[2022-11-24 06:00] VITALS: BP 136/81; PULSE 69; RESP 17; O2SAT 96
--- NOTE | 2022-11-24 07:14 | PC.NURSE ---
Patient sitting in bed eating breakfast at this time. Patient had a fall earlier this morning but is denying any pain associated with the fall, she states that it happened because she was feeling weak due to not eating recently.
[2022-11-24 07:31] VITALS: BP 122/76; PULSE 71; RESP 14; TEMP 36.8; O2SAT 97
--- NOTE | 2022-11-24 08:08 | PC.NURSE ---
Medications given to patient per MAR.
[2022-11-24] MEDS: Folic Acid 1 MG TABLET PO (08:51)
[2022-11-24] MEDS: cloNIDine HCL 0.1 MG TABLET PO (08:51)
[2022-11-24] MEDS: Thiamine HCL 100 MG TABLET PO (08:51)
[2022-11-24] MEDS: Magnesium Oxide 400 MG TABLET PO (08:51)
[2022-11-24] MEDS: Cyanocobalamin (Vitamin B-12) 500 MCG TABLET PO (08:51)
[2022-11-24] MEDS: Cholecalciferol (Vitamin D3) 25 MCG TABLET 50 MCG PO (08:52)
--- NOTE | 2022-11-24 08:52 | MHC.RECOVRN ---
This narrative writer following up this a.m. on bed availability at [facility] in [place], [place], Level 4 ATS, t/w spoke w/ Kimmy at [facility], no beds available currently, encouraged to call back at Noon to check on anticipated discharges, t/w to f/u w/ patient.
--- NOTE | 2022-11-24 08:54 | PC.NURSE ---
pt is alert and oriented, skin pwd, respirations even and unlabored, pt denies pain except states her abd feels a little crampy but denies nausea, no visible tremor, plan is for the pt to get into detox and denies si
[2022-11-24] MEDS: nadoloL 20 MG TABLET PO (09:24)
[2022-11-24 10:07] VITALS: BP 103/59; PULSE 68; RESP 16; O2SAT 96
--- NOTE | 2022-11-24 10:54 | PC.NURSE ---
pt was offered to take a shower but declined at this time
--- NOTE | 2022-11-24 14:38 | MHC.RECOVSUP ---
[facility] reports no beds available at this time, requesting to check back tomorrow. Followed up with [facility] and they have no beds available today.
[2022-11-24 14:39] VITALS: BP 110/62; PULSE 66; RESP 13; TEMP 36.8; O2SAT 98
--- NOTE | 2022-11-24 15:16 | PC.NURSE ---
francie from [facility] at bedside to d/c home and continue detox search from home.
--- NOTE | 2022-11-24 15:28 | MHC.RECOVSUP ---
T/W confirmed with [facility] that pt can be admitted from home but do not provide transportation. Reviewed plan with pt to follow up with [facility] from home, pt was provided with [facility] phone number and address. Pt might be able to get to [facility] on their own, if not T/W provided pt with number to call and a Lyft can be ordered to get pt to [facility]. Pt had no questions or concerns at this time.
--- NOTE | 2022-11-24 15:55 | PC.NURSE ---
pt ambulated with a walker at her baseline, plan to go home
== END 2022-11-24 16:19 | disposition home or self-care (01) ==
PROVIDERS: Physician Assistant; Emergency Provider Emergency Medicine Emergency Medical Services; PCP Internal Medicine
DX: F10.229 Alcohol dependence with intoxication, unspecified (principal); R00.0 Tachycardia, unspecified; F33.1 Major depressive disorder, recurrent, moderate; R53.1 Weakness; R11.2 Nausea with vomiting, unspecified; I10 Essential (primary) hypertension; Y90.8 Blood alcohol level of 240 mg/100 ml or more; Z20.822 Contact with and (suspected) exposure to COVID-19; Z20.828 Contact with and (suspected) exposure to other viral communicable diseases; Z79.899 Other long term (current) drug therapy
CPT/HCPCS: 80048; 80076; 80307; 81001; 82077; 83735; 85025; 87635; 93005; 96361; 96365; 96375; 99285; J2060; J2405; J3475

== ENCOUNTER → 2022-12-02 14:18 | Outpatient (BNVA) | payer OTHER, SELFPAY | PROVIDERS: PCP Internal Medicine; Visit Provider Nurse Practitioner Psychiatric/Mental Health | DX: F10.20 Alcohol dependence, uncomplicated (principal) | CPT/HCPCS: 99212 ==

== ENCOUNTER 2022-12-20 10:15 | Emergency (ER) | payer OTHER, SELFPAY ==
--- NOTE | ~2022-12-20 | CT_ITS ---
EXAMINATION: CT ABDOMEN AND PELVIS WITH CONTRAST CLINICAL INFORMATION: Abdominal pain COMPARISON: Abdominal ultrasound 05/17/2022 TECHNIQUE: Multidetector volumetric images were obtained from the superior aspect of the liver through the pubic symphysis following administration 85 mL of Omnipaque 350 intravenous contrast. Sagittal and coronal reformatted images were obtained on the technologist's workstation. This CT examination was performed using dose optimization techniques as appropriate, variously including the following: *Automated exposure control *Adjustment of mA and/or kV according to patient size (this includes techniques or standardized protocols for targeted exams where dose is matched to indication/reason for exam; i.e. extremities or head) *Use of iterative reconstruction technique DLP: 563 mGy-cm FINDINGS: Visualized lung bases are well aerated. Abnormal appearance of the liver with a severely hypertrophied left hepatic lobe and a relative diminutive right hepatic lobe. There is a micronodular appearance of the liver. The gallbladder is normal in appearance. The pancreas is normal in appearance. The spleen is mildly enlarged measuring 13.5 cm in maximum AP dimension. The adrenal glands are unremarkable. Symmetrically enhancing kidneys. There is no hydronephrosis of either kidney. Debris-filled stomach. Normal caliber loops of small and large bowel. Mild colonic diverticulosis without CT evidence to suggest active diverticulitis. Small fat-containing umbilical hernia with tiny fat-containing supraumbilical hernia. Normal caliber abdominal aorta. Retroaortic left renal vein. The bladder is normal in appearance. Unremarkable CT appearance of the uterus. No gross free pelvic fluid. No inguinal lymphadenopathy. Mild degenerative changes of the spine. L4 compression deformity, age indeterminate. CT/CT abdomen pelvis w IV con IMPRESSION: 1. Abnormal appearance of the liver. Cirrhosis suspected. Correlation with liver enzymes recommended. 2. Mild splenomegaly. 3. Mild colonic diverticulosis without CT evidence to suggest active diverticulitis. 4. L4 compression deformity, age indeterminate. Fleischner guidelines were followed.
[2022-12-20 10:23] VITALS: BP 147/86; PULSE 102; RESP 18; TEMP 36.9; O2SAT 98; BMI 27.3
--- NOTE | 2022-12-20 11:01 | ECG_ITS ---
Test Reason : MEDICAL CLEARANCE Blood Pressure : / mmHG Vent. Rate : 095 BPM Atrial Rate : 095 BPM P-R Int : 144 ms QRS Dur : 080 ms QT Int : 364 ms P-R-T Axes : 003 -32 -03 degrees QTc Int : 457 ms Normal sinus rhythm Left axis deviation Septal infarct (cited on or before 23-NOV-2022) Abnormal ECG When compared with ECG of 23-NOV-2022 13:54, Nonspecific T wave abnormality, improved in Anterior leads Referred By: Rosalind Bolaños Electronically Signed By:CLAUS BOSTON MD
[2022-12-20 11:50] LABS: MANUAL DIFF FLAG NO
[2022-12-20 11:51] LABS: Basophils Percent Auto 0.7 % (0-2); Eosinophils Absolute Auto 0.1 X10*3/uL (0.0-0.4); Hematocrit 43.1 % (37.0-47.0); Hemoglobin 14.4 g/dl (12.0-16.0); Lymphocytes Absolute Auto 1.6 X10*3/uL (1.2-4.9); Lymphocytes Percent Auto 34.9 % (20-40); Mean Corpuscular HGB Conc 33.4 g/dl (31.0-35.0); Mean Corpuscular Hemoglobin 32.4 pg (27.0-33.0); Mean Corpuscular Volume 96.9 fL (80.0-98.0); Mean Platelet Volume 9.8 fL (9.4-12.3); Monocytes Absolute Auto 0.3 X10*3/uL (0.1-1.2); Monocytes Percent Auto 7.5 % (2-11); Neutrophils Absolute Auto 2.5 x10*3/uL (2.0-8.3); Neutrophils Percent Auto 54.9 % (45-73); Red Blood Count 4.45 X10*6/uL (4.20-5.50); Red Cell Distribution Width 12.7 % (11.0-16.0); White Blood Count 4.5 X10*3/uL (4.8-10.8)
[2022-12-20 11:53] LABS: Platelet Count 82 X10*3/uL (160-400)
[2022-12-20 11:58] LABS: Ammonia 34 umol/L (13-55)
--- NOTE | 2022-12-20 12:01 | ED_ITS ---
HPI - General Adult General Chief complaint: ETOH/Substance Use Stated complaint: medical clearance Time Seen by Provider: 12/20/22 12:01 Source: patient Mode of arrival: other (uses cane) Limitations: no limitations History of Present Illness HPI narrative: Patient is a 52 year old assigned female at with a history of alcohol abuse and cirrhosis presenting to the emergency department today requesting detox placement. Patient states that she is a heavy daily drinker and needs help going through detox. Patient states that she has some intermittent nausea. Patient denies any dizziness, lightheadedness, abdominal pain, vomiting, fever, chills, blurry vision, double vision, loss of vision, chest pain, difficulty breathing, shortness of breath, back pain, night sweats, pain with urination, increased urinary frequency, increased urinary urgency, blood in her urine or stool, syncope or a near syncopal episode, recent trauma or falls, bowel incontinence, bladder incontinence, bowel retention, bladder retention, or any other complaints at this time. Relieving factors: none Exacerbating factors: none Associated symptoms: nausea/vomiting Treatments prior to arrival: none Related Data Home Medications Medication Instructions Recorded Confirmed cholecalciferol (vitamin D3) 50 1 cap PO DAILY 05/17/22 12/20/22 mcg (2,000 unit) capsule cyanocobalamin (vitamin B-12) 500 1 tab PO DAILY 05/17/22 12/20/22 mcg tablet (Vitamin B-12) nadolol 20 mg tablet 20 mg PO DAILY 08/07/22 12/20/22 bupropion HCl 150 mg 24 hr tablet, 150 mg PO QAM 12/20/22 12/20/22 extended release magnesium oxide 400 mg (241.3 mg 400 mg PO BID 12/20/22 12/20/22 magnesium) tablet Previous Rx's Medication Instructions Recorded mirtazapine 7.5 mg tablet 7.5 mg PO BEDTIME #30 tabs 06/03/22 [employer], KULWANT (Reset #1 ea 10/08/22 [employer] (KULWANT)) acamprosate 333 mg tablet,delayed 666 mg PO TID #180 tabs 11/04/22 release folic acid 1 mg tablet 1 mg PO DAILY #90 tabs 11/04/22 thiamine HCl (vitamin B1) 100 mg 100 mg PO DAILY #90 tabs 11/04/22 tablet Allergies Allergy/AdvReac Type Severity Reaction Status Date / Time No Known Allergies Allergy Verified 12/20/22 10:23 Review of Systems Constitutional: Constitutional: Reports no additional constitutional complaints, Denies chills, Denies fever(s) and Denies night sweats Eyes: Eyes: Reports no additional eye complaints, Denies blurry vision, Denies change in vision, Denies diplopia, Denies eye discharge, Denies loss of vision and Denies eye pain ENT: Denies dizziness Cardiovascular: Cardiovascular: Reports no additional cardiovascular complaints, Denies chest pain, Denies lightheadedness, Denies Loss of Consciousness and Denies dyspnea Respiratory: Respiratory: Reports no additional respiratory complaints and Denies dyspnea Gastrointestinal: Gastrointestinal: Reports no additional gastrointestinal complaints, Denies abdominal pain, Denies melena, Denies hematochezia, Denies change in bowel habits, Denies change in stool character, Reports nausea and Denies vomiting Genitourinary: Genitourinary: Denies hematuria, Denies urinary frequency, Denies dysuria, Denies urinary incontinence, Denies urinary hesitancy and Denies urinary urgency Musculoskeletal: Musculoskeletal: Reports no additional musculoskeletal complaints, Denies numbness and Denies tingling Neurologic: Denies dizziness, Denies loss of vision, Denies numbness and Denies tingling Psychiatric: Psychiatric: Reports no additional psychiatric complaints Endocrine: Endocrine: Reports no additional endocrine complaints Hematologic/Lymphatic: Hematologic/Lymphatic: Reports no additional hematologic/lymphatic complaints Allergic/Immunologic: Allergic/Immunologic: Reports no additional allergic/immunologic complaints PMFSH Past Medical History Attestation statement: The following information was validated with the patient. Source: old records reviewed and nursing notes reviewed Medical History Alcohol abuse Alcohol use disorder, severe, dependence Alcoholic ketoacidosis Alcoholism Anxiety Dehydration Depression Hypertension Hypertension Surgical History No pertinent past surgical history Family History Family History Other No family history of coronary artery disease Social History Social History Household Members: None Housing: House Do you presently have visiting nurse or other home services: No Alcohol intake: current Alcohol intake frequency: 3 or more drinks per day Alcohol type: hard liquor Patient Tobacco Use Status: Never used Tobacco Advance Directives: Yes Advance Directives on File: Yes Advance Directives Date on File: 05/18/22 service: No Current occupational status: employed Physical Exam ED Vital Signs: Vital Signs - 24 hr 12/20/22 10:23 12/20/22 12:55 Temperature 98.4 F 97.7 F Pulse Rate 102 H 97 Respiratory Rate 18 16 Blood Pressure 147/86 H 134/82 Pulse Oximetry 98 97 Oxygen Delivery Method Room Air Room Air BMI result Body Mass Index 27.3 Const General: cooperative, no acute distress, alert and awake Nutritional Appearance: well nourished Orientation/consciousness: patient oriented x3 Limitations: no limitations HENMT Head: Yes normal to inspection and Yes atraumatic Ears: hearing grossly normal bilaterally and external ears normal General nose exam: Normal external nose present, no nasal discharge noted and no epistaxis Face and sinus: Yes normal facial exam, No abrasion and No laceration Mouth: Normal oral and palatal mucosa present, no drooling and no muffled voice Eyes General: appearance normal, both eyes and all related structures Periorbital: periorbital findings normal Eyelids: Yes eyelids normal Conjunctivae: conjunctivae normal Pupils: Equal, round and reactive pupils present EOM: EOMs intact bilaterally Neck Neck: Yes normal visual inspection, Yes full ROM and Yes no lymphadenopathy Chest Chest palpation & inspection: normal inspection of the chest Resp Effort & Inspection: normal respiratory effort and able to speak in complete sentences Auscultation: clear to auscultation bilaterally Cardio Rate: regular rate Rhythm: regular rhythm GI Inspection: Yes normal to inspection Palpation (GI): Soft to palpation, not firm, nontender and no guarding Neuro General: patient oriented x3 and moves all extremities Cranial nerves: Yes Equal, round and reactive pupils present Cognition (Neuro): normal cognition Motor exam (neuro): 5/5 motor strength present throughout Sensory Exam: Normal double simultaneous stimulation for sensation Coordination: [id number] test normal Extrem General: Yes normal to inspection, Yes full ROM and Yes capillary refill normal Psych Appearance: grossly normal Mental Status: mental status grossly normal Affect: normal affect Attitude: cooperative Thought process: Normal thought process present Thought content: Normal thought content present Insight: Good insight present (Psych) Medications Administered Discontinued Medications Generic Name Dose Route Start Last Admin Trade Name Freq PRN Reason Stop Dose Admin Sodium Chloride 1,000 mls @ 999 mls/hr 12/20/22 12:15 12/20/22 12:36 Ns IV 12/20/22 13:15 999 mls/hr .Q1H1M LEORA Administration Iohexol 85 ml 12/20/22 13:30 12/20/22 13:30 Iohexol 350 Mg/Ml 100 Ml Infus..Btl IV 12/20/22 13:31 85 ml ONCE ONE Administration Lorazepam 2 mg 12/20/22 12:13 12/20/22 12:40 Lorazepam 2 Mg/Ml Vial IVPUSH 12/20/22 12:14 2 mg ONCE ONE Administration Ondansetron HCl 4 mg 12/20/22 12:13 12/20/22 12:39 Ondansetron Hcl 4 Mg/2 Ml Vial IVPUSH 12/20/22 12:14 4 mg ONCE ONE Administration Medical Decision Making Medical Decision Making [facility] Narrative: Patient is a 52 year old assigned female at with a history of alcohol abuse presenting to the emergency department today requesting alcohol detox. Patient's physical exam showed a shakey and overall unsteady individual. Patient's blood work was unremarkable and consistent with chronic liver disease. Patient's EKG was unremarkable. Patient's abdomen/pelvis CT showed cirrhosis. Patient was evaluated by the recovery team and given the patient's need for somewhat assisted ambulation, she will have to be placed at a level 4 facility. Patient states that she feels unsafe at home as she is so shakey she cannot walk appropriately and her house is unkempt / dangerous. I explained my physical exam findings as well as all test results to the patient. Patient to be evaluated by physical therapy and followed by case management for possible STR placement. Will initiate oral librium protocol. I answered all questions asked by the patient. Patient verbalized agreement and understanding with this treatment plan and PT evaluation for possible placement. Differential Diagnosis Differential Diagnoses: The differential diagnosis associated with the presentation includes alcohol abuse Lab Data [facility] Lab Attestation statement: I reviewed the patient's lab results. 12/20/22 11:44 12/20/22 11:44 Labs: Lab Results 12/20/22 12/20/22 12/20/22 Range/Units 11:44 11:44 11:44 WBC 4.5 L (4.8-10.8) X10*3/uL RBC 4.45 (4.20-5.50) X10*6/uL Hgb 14.4 (12.0-16.0) g/dl Hct 43.1 (37.0-47.0) % MCV 96.9 (80.0-98.0) fL MCH 32.4 (27.0-33.0) pg MCHC 33.4 (31.0-35.0) g/dl RDW 12.7 (11.0-16.0) % Plt Count 82 L D (160-400) X10*3/uL MPV 9.8 (9.4-12.3) fL Immature Gran % (Auto) 0.0 (0.0-0.4) % Neut % (Auto) 54.9 (45-73) % Lymph % (Auto) 34.9 (20-40) % [place] % (Auto) 7.5 (2-11) % Eos % (Auto) 2.0 (0-4) % Baso % (Auto) 0.7 (0-2) % Lymph # (Auto) 1.6 (1.2-4.9) X10*3/uL [place] # (Auto) 0.3 (0.1-1.2) X10*3/uL Eos # (Auto) 0.1 (0.0-0.4) X10*3/uL Baso # (Auto) 0.0 (0.0-0.2) X10*3/uL Abs Immat Gran (auto) 0.00 (0.00-0.03) X10*3/uL Absolute Neuts (auto) 2.5 (2.0-8.3) x10*3/uL Absolute Nucleated RBC 0.000 (0.0-0.012) X10*3/uL Nucleated RBC % (auto) 0.0 (0.0-0.2) /100WBC Sodium 141 (135-145) mmol/L Potassium 4.0 (3.3-5.1) mmol/L Chloride 101 (96-108) mmol/L Carbon Dioxide 20 L (22-29) mmol/L Anion Gap 24 H (12-20) BUN 7 L (9-16) mg/dL Creatinine 0.62 (0.5-1.4) mg/dL Estim Creat Clear Calc 120.3 Estimated GFR > 60 Random Glucose 102 (60-115) mg/dL Calcium 9.7 (8.4-10.2) mg/dL Total Bilirubin 2.7 H (0.0-1.0) mg/dL AST 86 H (5-31) U/L ALT 34 H (0-31) U/L Alkaline Phosphatase 118 H (39-117) U/L Ammonia 34 (13-55) umol/L Total Protein 8.7 H (6.5-8.0) g/dL Albumin 5.0 (3.5-5.0) g/dL Amylase 46 (28-100) U/L Lipase 14 (8-78) U/L Salicylates < 5.0 L (15-30) mg/dL Acetaminophen < 17 (<30) mcg/mL Ethyl Alcohol 102 mg/dL Independent Interpretation I performed an independent interpretation of an: EKG Interpretation: Vent. Rate: 095 BPM ? ? Atrial Rate: 095 BPM P-R Int: 144 ms? QRS Dur: 080 ms QT Int: 364 ms ? ? ? P-R-T Axes: 003 -32 -03 degrees QTc Int: 457 ms ? Normal sinus rhythm Left axis deviation Septal infarct (cited on or before 23-NOV-2022) Abnormal ECG When compared with ECG of 23-NOV-2022 13:54, Nonspecific T wave abnormality, improved in Anterior leads DD/ 1135 Radiology Impression Radiologist Impression: My interpretation is in agreement with the radiologist's impression of this imaging study. EXAMINATION: CT ABDOMEN AND PELVIS WITH CONTRAST? CLINICAL INFORMATION: Abdominal pain? COMPARISON: Abdominal ultrasound 05/17/2022 TECHNIQUE: Multidetector volumetric images were obtained from the superior aspect of the liver through the pubic symphysis following administration 85 mL of Omnipaque 350 intravenous contrast. Sagittal and coronal reformatted images were obtained on the technologist's workstation.? This CT examination was performed using dose optimization techniques as appropriate, variously including the following: *Automated exposure control *Adjustment of mA and/or kV according to patient size (this includes techniques or standardized protocols for targeted exams where dose is matched to indication/reason for exam; i.e. extremities or head) *Use of iterative reconstruction technique DLP: 563 mGy-cm FINDINGS: Visualized lung bases are well aerated. Abnormal appearance of the liver with a severely hypertrophied left hepatic lobe and a relative diminutive right hepatic lobe. There is a micronodular appearance of the liver. The gallbladder is normal in appearance. The pancreas is normal in appearance. The spleen is mildly enlarged measuring 13.5 cm in maximum AP dimension. The adrenal glands are unremarkable. Symmetrically enhancing kidneys. There is no hydronephrosis of either kidney. Debris-filled stomach. Normal caliber loops of small and large bowel. Mild colonic diverticulosis without CT evidence to suggest active diverticulitis. Small fat-containing umbilical hernia with tiny fat-containing supraumbilical hernia. Normal caliber abdominal aorta. Retroaortic left renal vein. The bladder is normal in appearance. Unremarkable CT appearance of the uterus. No gross free pelvic fluid. No inguinal lymphadenopathy. Mild degenerative changes of the spine. L4 compression deformity, age indeterminate. CT/CT abdomen pelvis w IV con IMPRESSION: 1.? Abnormal appearance of the liver. Cirrhosis suspected. Correlation with liver enzymes recommended. 2.? Mild splenomegaly. 3.? Mild colonic diverticulosis without CT evidence to suggest active diverticulitis. 4.? L4 compression deformity, age indeterminate. ? Fleischner guidelines were followed. Dictated By: Peter Minaya MD Signed By: Electronically signed by Peter Minaya MD 12/20/22 143 Critical Care Time Critical Care Time Critical Care Time: Yes Total Critical Care Time: 30 Attestation: I spent 30 minutes of Critical Care Time with this patient. This does not include time spent on separately reported billable procedures. Discharge Plan Discharge Clinical Impression: Alcohol use disorder, severe, dependence Patient Disposition: Still a Patient Prescriptions: No Action cyanocobalamin (vitamin B-12) [Vitamin B-12] 500 mcg tablet 1 tab PO DAILY cholecalciferol (vitamin D3) 50 mcg (2,000 unit) capsule 1 cap PO DAILY nadolol 20 mg Tablet 20 mg PO DAILY magnesium oxide 400 mg (241.3 mg magnesium) tablet 400 mg PO BID bupropion HCl 150 mg tablet extended release 24 hr 150 mg PO QAM mirtazapine 7.5 mg tablet 7.5 mg PO BEDTIME Qty: 30 0RF (DME) Reset [employer] (KULWANT) Misc See Rx Instructions .MEDSUPPLY Qty: 1 0RF Rx Instructions: As directed (3-4 times a week) 90 days acamprosate 333 mg tablet,delayed release (DR/EC) 666 mg PO TID Qty: 180 0RF folic acid 1 mg tablet 1 mg PO DAILY Qty: 90 1RF thiamine HCl (vitamin B1) 100 mg tablet 100 mg PO DAILY Qty: 90 0RF Referrals: Marino Goodson MD [Primary Care Provider] - 1 Week
[2022-12-20 12:27] LABS: Alanine Aminotransferase 34 U/L (0-31); Alkaline Phosphatase 118 U/L (39-117); Aspartate Amino Transferase 86 U/L (5-31); Bilirubin Total 2.7 mg/dL (0.0-1.0); Blood Urea Nitrogen 7 mg/dL (9-16); Calcium 9.7 mg/dL (8.4-10.2); Creatinine Clr Calc Pharmacy 120.3; Estimated Glomerular Filt Rate > 60; Ethanol 102 mg/dL; Glucose Random 102 mg/dL (60-115); Total Protein 8.7 g/dL (6.5-8.0)
[2022-12-20 12:30] VITALS: PULSE 97
[2022-12-20] MEDS: 0.9 % Sodium Chloride 1,000 ML 999 ML IV (12:36)
[2022-12-20] MEDS: ondansetron HCL 4 MG/2 ML VIAL IVPUSH (12:39)
[2022-12-20] MEDS: LORazepam 2 MG/ML VIAL IVPUSH (12:40)
[2022-12-20 12:48] LABS: Acetaminophen LAB < 17 mcg/mL (<30); Anion Gap 24 (12-20); Carbon Dioxide 20 mmol/L (22-29); Chloride 101 mmol/L (96-108); Salicylate < 5.0 mg/dL (15-30); Sodium 141 mmol/L (135-145)
--- NOTE | 2022-12-20 12:53 | MHC.RECOVRN ---
Met with pt in ED10 to discuss substance use and desire for treatment. Pt reports drinking 4 pack [employer] wine plus 4-5 nips vodka daily. Pt has been to [facility] in the past as pt requires level 4 ATS. Pt does not wish to return to level 4 ATS at this time, requesting hospital admission for a few days. Pt educated regarding process and may not be admitted to the hospital. Pt unsure if she would like to proceed with ATS referral. Pt also c/o abdominal pain. Discussed with provider. Will continue to follow.
[2022-12-20 12:55] VITALS: BP 134/82; PULSE 97; RESP 16; TEMP 36.5; O2SAT 97
--- NOTE | 2022-12-20 13:00 | PC.NURSE ---
Patient presents for detox from alcohol. Patient has gone through detox previously but had a recent relapse. 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 Patient medicated per OCT.
[2022-12-20 13:10] LABS: Amylase 46 U/L (28-100); Lipase 14 U/L (8-78)
[2022-12-20] MEDS: iohexoL 350 MG/ML 100 ML INFUS..BTL 85 ML IV (13:30)
--- NOTE | 2022-12-20 14:20 | PHA.MEDREC ---
Pharmacy Consult ? Medication Reconciliation Pharmacy has completed the medication reconciliation.
[2022-12-20 15:16] VITALS: BP 162/91; PULSE 98; RESP 16; TEMP 37.1; O2SAT 96
--- NOTE | 2022-12-20 15:33 | MHC.RECOVRN ---
Pts referral sent to all level 4 ATS facilities: [facility], [facility], [facility], [facility] and [facility].
--- NOTE | 2022-12-20 15:39 | MHC.CM.PN ---
CM RECEIVED CM CONSULT FROM ED PROVIDER. CM MET WITH PT AT BEDSIDE. PT IS TREMULOUS AND DOES NOT FEEL STRONG ENOUGH TO GO HOME. PT IS AWARE SHE WILL BE SEEN BY P.T. TOMORROW TO DETERMINE IF SHE QUALIFIES FOR STR. PT HAS NO PREFERENCE . IF SHE DOES NOT QUALIFY, SHE WOULD LIKE TO GO TO DETOX, WHETHER IT BE INPATIENT OR OUTPATIENT. PT LIVES IN A [facility] WITH HER DOG (DOG AT [facility]) PT USES [facility] FOR MOBILITY. USES [facility] IN [place] FOR PHARMACY. +HCP ON FILE +COVID VAX X2 PCP DR. THOMASON AT [facility] IN [place]. DP: REFERALS TO BE SENT (PENDING PT EVAL) FOR CENTERS THAT ARE CONTRACTED WITH HER INSURANCE. PT WILL NEED A RIDE HOME VIA LYFT OR BLS. CM WILL CONTINUE TO FOLLOW.
[2022-12-20] MEDS: chlordiazePOXIDE HCl 25 MG CAPSULE 50 MG PO ×2 (15:56→21:49)
[2022-12-20] MEDS: Ibuprofen 600 MG TABLET PO ×2 (17:11→23:34)
[2022-12-20] MEDS: buPROPion HCl XL 150 MG TAB.ER.24H PO (17:12)
--- NOTE | 2022-12-20 17:15 | PC.NURSE ---
Medication list reviewed with pharmacy team and ordered by provider. Patient medicated per MAR for pain. Patient assisted to commode.
[2022-12-20 17:22] LABS: Appearance Urine Clear; Color Urine Dark Yellow; Glucose Urine UA Negative (Negative); Leukocyte Esterase Urine Negative (Negative); Nitrite Urine Negative (Negative); Specific Gravity - Urine >= 1.030 (1.005-1.025); UMIC TRIGGER UA YES; UPreg QC Valid YES; Urine Blood Negative (Negative); Urine Ketones 80 mg/dL (Negative); Urine Protein 100 (2+) mg/dL (Neg-Trace)
[2022-12-20 17:23] LABS: Urine Pregnancy NEGATIVE (NEGATIVE)
[2022-12-20 17:25] LABS: Bacteria Urine None Seen (None Seen); Hyaline Casts Urine 0-2 /LPF (0-2); WBC Urine 0-5 /HPF (0-5)
[2022-12-20 17:33] LABS: Amphetamine Screen Urine Not Detected (Not Detect); Barbiturates, Urine Not Detected (Not Detect); Benzodiazepines Screen Urine Not Detected (Not Detect); Cannabinoid Screen Urine Not Detected (Not Detect); Cocaine Screen Urine Not Detected (Not Detect); Fentanyl, urine Not Detected (Not Detect); Opiate Screen Urine Not Detected (Not Detect); Phencyclidine Screen Urine Not Detected (Not Detect)
[2022-12-20 21:49] VITALS: BP 166/94; PULSE 93; RESP 17; TEMP 37; O2SAT 98
[2022-12-20] MEDS: Magnesium Oxide 400 MG TABLET PO (21:49)
[2022-12-20] MEDS: Acamprosate Calcium 333 MG TABLET.DR 666 MG PO (21:49)
[2022-12-20] MEDS: Mirtazapine 7.5 MG TABLET PO (21:50)
--- NOTE | 2022-12-20 22:16 | PC.NURSE ---
assumed care of patient at 2100. bedtime po meds given. pt requesting ibuprofen for pain. will discuss with provider. vital signs updated. will CTM
--- NOTE | 2022-12-20 22:35 | MHC.EDTECH ---
pt assisted with toileting placed on commode
[2022-12-21] VITALS (7 sets, daily range): BP systolic 145–156; BP diastolic 85–96; PULSE 88–125; RESP 15–105; TEMP 36.8–37.1; O2SAT 93–96
--- NOTE | 2022-12-21 05:38 | PC.NURSE ---
pt sleeping comfortably on stretcher. respirations even and unlabored, equal chest rise and fall. pt on monitoring coordinator HR 80s. call jay within reach. will CTM
[2022-12-21] MEDS: chlordiazePOXIDE HCl 25 MG CAPSULE PO (07:12)
[2022-12-21] MEDS: Ibuprofen 600 MG TABLET PO (07:22)
[2022-12-21] MEDS: Ondansetron ODT 4 MG TAB.RAPDIS TRANSLINGU (07:23)
--- NOTE | 2022-12-21 07:38 | PC.NURSE ---
Pt on stretcher, airway open and patent, no obvious signs of distress, equal chest rise and fall, no difficulty/labored breathing. Pt a&ox4, skin normal for ethnicity, warm, and dry. No edema noted. Pt reporting nausea. Pt mildly anxious, pt has tremors in hands. Pt CIWA score 6. Pt normal sinus on monitor.
--- NOTE | 2022-12-21 07:40 | PC.NURSE ---
physical therapy at bedside for evaluation
--- NOTE | 2022-12-21 08:05 | PC.NURSE ---
pt cleared by physical therapy and consult to detox
--- NOTE | 2022-12-21 08:50 | MHC.CM.ED ---
Patient remains in ER. Physical therapy eval completed. Patient can safely ambulate with her cane and can safely d/c to detox. Recovery team made aware. Continue to monitor for d/c needs.
[2022-12-21] MEDS: buPROPion HCl XL 150 MG TAB.ER.24H PO (09:10)
[2022-12-21] MEDS: Magnesium Oxide 400 MG TABLET PO (09:10)
[2022-12-21] MEDS: Thiamine HCL 100 MG TABLET PO (09:11)
[2022-12-21] MEDS: Folic Acid 1 MG TABLET PO (09:11)
[2022-12-21] MEDS: Cholecalciferol (Vitamin D3) 25 MCG TABLET 50 MCG PO (09:11)
[2022-12-21] MEDS: Acamprosate Calcium 333 MG TABLET.DR 666 MG PO (09:11)
[2022-12-21] MEDS: Cyanocobalamin (Vitamin B-12) 500 MCG TABLET PO (09:12)
--- NOTE | 2022-12-21 09:22 | MHC.RECOVRN ---
Spoke with pt regarding dc plans. Plan for pt to dc home and follow up with level 4 ATS facilities. Pt aware no beds available today, pt comfortable with plan to continue calling. RN and provider aware.
[2022-12-21] MEDS: nadoloL 20 MG TABLET PO (09:46)
== END 2022-12-21 10:45 | disposition home or self-care (01) ==
PROVIDERS: Physician Assistant Medical; Emergency Provider Emergency Medicine; PCP Internal Medicine
DX: F10.229 Alcohol dependence with intoxication, unspecified (principal); Y90.5 Blood alcohol level of 100-119 mg/100 ml; R10.9 Unspecified abdominal pain; R94.31 Abnormal electrocardiogram [ECG] [EKG]; R26.81 Unsteadiness on feet; Z79.899 Other long term (current) drug therapy; Z71.41 Alcohol abuse counseling and surveillance of alcoholic
CPT/HCPCS: 36415; 74177; 80053; 80143; 80179; 80307; 81001; 81025; 82077; 82140; 82150; 83690; 85025; 93005; 96361; 96374; 96375; 97161; 99285; J2060; J2405; Q9967

== ENCOUNTER → 2022-12-29 11:36 | Outpatient (BNVA) | payer OTHER, SELFPAY | PROVIDERS: PCP Internal Medicine; Visit Provider Nurse Practitioner Psychiatric/Mental Health ==

== ENCOUNTER 2023-01-20 14:17 | Emergency (ER) | payer OTHER, SELFPAY ==
[2023-01-20 14:38] VITALS: BP 119/73; PULSE 84; RESP 20; TEMP 37; O2SAT 98; BMI 27.4
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
[2023-01-20 15:07] LABS: MANUAL DIFF FLAG NO
[2023-01-20 15:14] LABS: Basophils Absolute Auto 0.1 X10*3/uL (0.0-0.2); Basophils Percent Auto 0.8 % (0-2); Eosinophils Percent Auto 0.5 % (0-4); Hematocrit 41.9 % (37.0-47.0); Imm Gran Abs Auto 0.01 X10*3/uL (0.00-0.03); Imm Gran Pct Auto 0.2 % (0.0-0.4); Lymphocytes Absolute Auto 1.2 X10*3/uL (1.2-4.9); Lymphocytes Percent Auto 20.1 % (20-40); Mean Corpuscular HGB Conc 33.4 g/dl (31.0-35.0); Mean Corpuscular Hemoglobin 32.1 pg (27.0-33.0); Mean Corpuscular Volume 96.1 fL (80.0-98.0); Mean Platelet Volume 10.1 fL (9.4-12.3); Monocytes Absolute Auto 0.5 X10*3/uL (0.1-1.2); Monocytes Percent Auto 7.9 % (2-11); Neutrophils Absolute Auto 4.2 x10*3/uL (2.0-8.3); Neutrophils Percent Auto 70.5 % (45-73); Platelet Count 53 X10*3/uL (160-400); Red Blood Count 4.36 X10*6/uL (4.20-5.50); Red Cell Distribution Width 12.5 % (11.0-16.0)
[2023-01-20 15:30] LABS: Alanine Aminotransferase 36 U/L (0-31); Albumin Level 4.8 g/dL (3.5-5.0); Alkaline Phosphatase 153 U/L (39-117); Anion Gap 22 (12-20); Aspartate Amino Transferase 88 U/L (5-31); Bilirubin Total 3.5 mg/dL (0.0-1.0); Blood Urea Nitrogen 5 mg/dL (9-16); Calcium 9.9 mg/dL (8.4-10.2); Carbon Dioxide 20 mmol/L (22-29); Chloride 100 mmol/L (96-108); Creatinine Clr Calc Pharmacy 122.2; Estimated Glomerular Filt Rate > 60; Ethanol 283 mg/dL; Glucose Random 110 mg/dL (60-115); Lipase 17 U/L (8-78); Magnesium 1.9 mg/dL (1.6-2.6); Potassium 3.9 mmol/L (3.3-5.1); Sodium 138 mmol/L (135-145); Total Protein 8.7 g/dL (6.5-8.0)
[2023-01-20 17:45] VITALS: BP 135/82; PULSE 76; RESP 18; O2SAT 96
[2023-01-20 18:21] LABS: COVID-19 Test Negative (Negative); IDNOW Serial# 08D9AD1C
--- NOTE | 2023-01-20 18:49 | MHC.RECOVSUP ---
Met with pt in [facility] who is here for AUD. Pt informs she is not interested in ATS at this time and is planning to start going to [facility] in addition to having a sponsor, a RC at [facility], and a therapist at [facility]. Pt informs she has been drinking about 4 bottles of wine and 4 shots with last use today. Pts family is here requesting her to stay and detox here as they tried to secion her and were unable due to her medical needs. Adaptive Physical Education Specialist Coleman is relaying their concerns to the provider to address their concerns.
[2023-01-20 19:25] LABS: Appearance Urine Clear; Color Urine Yellow; Glucose Urine UA Negative (Negative); Leukocyte Esterase Urine Moderate (2+) (Negative); Nitrite Urine Negative (Negative); PH 6.5 (5.0-9.0); Specific Gravity - Urine <= 1.005 (1.005-1.025); UMIC TRIGGER UACC YES; Urine Blood Small (1+) (Negative); Urine Ketones Negative (Negative); Urine Protein 30 (1+) mg/dL (Neg-Trace)
[2023-01-20 19:34] LABS: Amphetamine Screen Urine Not Detected (Not Detect); Barbiturates, Urine Not Detected (Not Detect); Benzodiazepines Screen Urine POSITIVE (Not Detect); Cannabinoid Screen Urine Not Detected (Not Detect); Cocaine Screen Urine Not Detected (Not Detect); Fentanyl, urine Not Detected (Not Detect); Opiate Screen Urine Not Detected (Not Detect); Phencyclidine Screen Urine Not Detected (Not Detect)
[2023-01-20 19:36] LABS: Bacteria Urine None Seen (None Seen); Hyaline Casts Urine 0-2 /LPF (0-2); RBC Urine 0-2 /HPF (0-2); Squamous Epithelial Cell Urine 0-2 /HPF (0-2); UACC Culture Trigger YES; WBC Urine 21-50 /HPF (0-5)
[2023-01-20] MEDS: Ondansetron ODT 4 MG TAB.RAPDIS TRANSLINGU (19:44)
--- NOTE | 2023-01-20 20:02 | MHC.RECOVSUP ---
? Reason for consult Recovery Support o Current location: [facility] o Identified substance use concern: Alcohol - Withdrawal - Seeking ATS (detox) - Support ? Intervention: o Community resources provided o Harm reduction discussion ? Plan: o Follow up tomorrow o Patient awaiting crisis evaluation o Patient to follow up with [facility] after discharge ? Additional information: Working with the Care Team and PA to fine the best way to care for patient...
[2023-01-20] MEDS: LORazepam 1 MG TABLET PO (21:04)
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
--- NOTE | 2023-01-20 22:14 | MHC.CM.ED ---
CARE team, recovery and CM have been consulted for this patient. CARE team is actively working with this patient. Family concerns about patient living situation and alcohol consumption. Do not feel patient can care for herself. House was unkempt, without food. Feces and mold present in home. Pt appears to have capacity. Pt wants DETOX. Family attempted to Section 35 her for the past [address] not issue Section 35 due to concerns about distant family and patient medical conditions and use of walker. PT was ordered for patient and patient is agreeable to STR if recommended. CARE TEAM is still working on DETOX, but feel patient may need level 4 facility. CM attempted to meet with patient, however patient was recently medicated with Ativan and was sleeping. Pt will not wake patient. HCP on file. Unknown vax status. Pt drives. Is disabled. Has [facility] PPO. CM will follow for any discharge planning needs.
[2023-01-20 23:19] VITALS: BP 141/87; PULSE 85; RESP 17; TEMP 37.8; O2SAT 95
[2023-01-20] MEDS: chlordiazePOXIDE HCl 25 MG CAPSULE 50 MG PO (23:46)
--- NOTE | 2023-01-21 05:52 | PC.NURSE ---
Patient scored 7 on CIWA at 1999, Ativan 1 mg PO administered @ 2103 and Librium 50 mg @ 2345 with + effect, patient slept through the night, up x 2 for bathroom use and back, patient is now case management case, PT order in placed, plan is to evaluate and address medical concerns and file section 35 for detox, med rec completed/pending provider's approval, VSS, behavior non concerning, will continue to monitor.
[2023-01-21 07:15] VITALS: BP 141/87; PULSE 85; O2SAT 95
[2023-01-21] MEDS: LORazepam 1 MG TABLET PO (07:20)
--- NOTE | 2023-01-21 07:44 | ECG_ITS ---
Test Reason : chest pain Blood Pressure : / mmHG Vent. Rate : 069 BPM Atrial Rate : 069 BPM P-R Int : 170 ms QRS Dur : 086 ms QT Int : 490 ms P-R-T Axes : 021 -30 -07 degrees QTc Int : 525 ms Normal sinus rhythm Left axis deviation Prolonged QT Abnormal ECG When compared with ECG of 20-DEC-2022 11:35, Criteria for Septal infarct are no longer Present QT has lengthened Referred By: Kishore Roper Electronically Signed By:CLAUS BOSTON MD
[2023-01-21] MEDS: Acamprosate Calcium 333 MG TABLET.DR 666 MG PO (08:30)
[2023-01-21] MEDS: Magnesium Oxide 400 MG TABLET PO (08:31)
[2023-01-21] MEDS: buPROPion HCl XL 150 MG TAB.ER.24H PO (08:31)
[2023-01-21] MEDS: Thiamine HCL 100 MG TABLET PO (08:31)
[2023-01-21] MEDS: Folic Acid 1 MG TABLET PO (08:31)
[2023-01-21] MEDS: Cyanocobalamin (Vitamin B-12) 500 MCG TABLET PO (08:31)
[2023-01-21] MEDS: nadoloL 20 MG TABLET PO (09:47)
--- NOTE | 2023-01-21 11:04 | MHC.CM.ED ---
Patient remains in ER BH pod. Physical therapy eval completed. No services indicated. Cece from Recovery Team and Edna from Care Team made aware. CM will defer to these 2 departments at this time. Can re-consult CM if needed.
--- NOTE | 2023-01-21 12:57 | MHC.RECOVSUP ---
Met with pt to review her plan for dc. Pt informs she does not want ATS at this time and plans to go home and hire a NEEDLE SETTER to assist her around the house and make sure she takes her medications. Pt will be working with a assistant men's lacrosse coach through [place] and plans to use PT1 to come to [facility] for PHP. Pt has no other questions or concerns at this time and is ready to go home. Provider is aware.
--- NOTE | 2023-01-21 13:00 | HO.ADDICTPRO ---
Subjective Subjective Date of Service: 01/21/23 Reason For Visit: Detox Interim History: Patient is a 52 year old female know to this fha underwriter via outpatient treatment for AUD. Presented to the ED yesterday with anxiety and possibly seeking ATS admission Patient was scheduled to have intake with PHP/IOP on 01/20, but cancelled and presented to ED instead. Per chart review patient's family reporting significant concern for patient due to her alcohol use and state of her home. On 01/19 patient's brother filed for Section 35 commitment, which was ultimately denied--unclear why. Some documentation states patient's mobility and ability to preform ADLs was a concern and therefore she would be ineligible for Section 35 facility. Patient reports it was denied due to her plan for care which included PHP admission, power and recovery shift engineer and sponsor engagement and plan for TRUCK LOADER help to address her home. This morning patient stated she was ready to be discharged and did not want to move forward with ATS admission. This fha underwriter conveyed concern from family regarding alcohol use. Patient appears to be minimizing alcohol use, stating she is not drinking daily at this time and when she does drink it is only one or two drinks . She feels her brother and family friend have been overreacting about the whole things and states no one had checked in with her and [facility]. This fha underwriter provided support, while also challenging some of patient's statements. During interview patient did not appear to be in withdrawal, no tremor noted. This fha underwriter advised patient that brother may petition the court again, patient verbalized understanding. Review of Systems Constitutional: Reports as per HPI Mental Status Exam Mental Status Exam Patient Appearance: Disheveled Patient Orientation: Person, Place, Time and Situation Level of Consciousness: Awake, Appropriate and Alert Patient Behavior: Appropriate and Guarded Mood Description: Blunted Affect Description: Blunted Judgement: Fair (limited insight) Diagnostics Vital Signs (24Hr): Vital Signs - 24 hr 01/20/23 14:38 01/20/23 17:45 01/20/23 23:19 Temperature 98.6 F 100.0 F Pulse Rate 84 76 85 Respiratory Rate 20 18 17 Blood Pressure 119/73 135/82 141/87 H Pulse Oximetry 98 96 95 Oxygen Delivery Method Room Air Room Air Room Air 01/21/23 07:15 Temperature Pulse Rate 85 Respiratory Rate Blood Pressure 141/87 H Pulse Oximetry 95 Oxygen Delivery Method BMI result Body Mass Index 27.4 Labs 01/20/23 15:02 01/20/23 15:02 Labs: Laboratory Results - last 48 hr 01/20/23 01/20/23 01/20/23 15:02 15:02 17:25 WBC 6.0 RBC 4.36 Hgb 14.0 Hct 41.9 MCV 96.1 MCH 32.1 MCHC 33.4 RDW 12.5 Plt Count 53 L D MPV 10.1 Immature Gran % (Auto) 0.2 Neut % (Auto) 70.5 Lymph % (Auto) 20.1 [place] % (Auto) 7.9 Eos % (Auto) 0.5 Baso % (Auto) 0.8 Lymph # (Auto) 1.2 [place] # (Auto) 0.5 Eos # (Auto) 0.0 Baso # (Auto) 0.1 Abs Immat Gran (auto) 0.01 Absolute Neuts (auto) 4.2 Absolute Nucleated RBC 0.000 Nucleated RBC % (auto) 0.0 Sodium 138 Potassium 3.9 Chloride 100 Carbon Dioxide 20 L Anion Gap 22 H BUN 5 L Creatinine 0.61 Estim Creat Clear Calc 122.2 Estimated GFR > 60 Random Glucose 110 Calcium 9.9 Magnesium 1.9 Total Bilirubin 3.5 H Direct Bilirubin 1.0 H AST 88 H ALT 36 H Alkaline Phosphatase 153 H Total Protein 8.7 H Albumin 4.8 Lipase 17 Urine Color Urine Appearance Urine pH Ur Specific [place] Urine Protein Urine Glucose (UA) Urine Ketones Urine Blood Urine Nitrite Ur Leukocyte Esterase Urine RBC Urine WBC Ur Squamous Epith Cells Urine Bacteria Hyaline Casts Urine Opiates Screen Urine Fentanyl Screen Ur Barbiturates Screen Ur Phencyclidine Scrn Ur Amphetamines Screen U Benzodiazepines Scrn Urine Cocaine Screen U Marijuana (THC) Screen Ethyl Alcohol 283 COVID-19 (ABUNDIO) Negative COVID-19 Clin Com See Note 01/20/23 01/20/23 19:17 19:17 WBC RBC Hgb Hct MCV MCH MCHC RDW Plt Count MPV Immature Gran % (Auto) Neut % (Auto) Lymph % (Auto) [place] % (Auto) Eos % (Auto) Baso % (Auto) Lymph # (Auto) [place] # (Auto) Eos # (Auto) Baso # (Auto) Abs Immat Gran (auto) Absolute Neuts (auto) Absolute Nucleated RBC Nucleated RBC % (auto) Sodium Potassium Chloride Carbon Dioxide Anion Gap BUN Creatinine Estim Creat Clear Calc Estimated GFR Random Glucose Calcium Magnesium Total Bilirubin Direct Bilirubin AST ALT Alkaline Phosphatase Total Protein Albumin Lipase Urine Color Yellow Urine Appearance Clear Urine pH 6.5 Ur Specific [place] <= 1.005 Urine Protein 30 (1+) H Urine Glucose (UA) Negative Urine Ketones Negative Urine Blood Small (1+) H Urine Nitrite Negative Ur Leukocyte Esterase Moderate (2+) H Urine RBC 0-2 Urine WBC 21-50 H Ur Squamous Epith Cells 0-2 Urine Bacteria None Seen Hyaline Casts 0-2 Urine Opiates Screen Not Detected Urine Fentanyl Screen Not Detected Ur Barbiturates Screen Not Detected Ur Phencyclidine Scrn Not Detected Ur Amphetamines Screen Not Detected U Benzodiazepines Scrn POSITIVE H Urine Cocaine Screen Not Detected U Marijuana (THC) Screen Not Detected Ethyl Alcohol COVID-19 (ABUNDIO) COVID-19 Clin Com Medications Medications Current Medications Acamprosate (Acamprosate Calcium 333 Mg Tablet.) 666 mg PO TID [facility] Last Admin: 01/21/23 08:30 Dose: 666 mg Bupropion HCl (Bupropion Hcl Xl 150 Mg Tab.Er.24h) 150 mg PO DAILY [facility] Last Admin: 01/21/23 08:31 Dose: 150 mg Cyanocobalamin (Cyanocobalamin (Vitamin B-12) 500 Mcg Tablet) 500 mcg PO DAILY [facility] Last Admin: 01/21/23 08:31 Dose: 500 mcg Folic Acid (Folic Acid 1 Mg Tablet) 1 mg PO DAILY [facility] Last Admin: 01/21/23 08:31 Dose: 1 mg Lorazepam (Lorazepam 1 Mg Tablet) 1 mg PO Q4H PRN PRN Reason: Alcohol Withdrawal Last Admin: 01/21/23 07:20 Dose: 1 mg Magnesium Oxide (Magnesium Oxide 400 Mg Tablet) 400 mg PO BID [facility] Last Admin: 01/21/23 08:31 Dose: 400 mg Nadolol (Nadolol 20 Mg Tablet) 20 mg PO DAILY [facility]; Protocol Last Admin: 01/21/23 09:47 Dose: 20 mg Thiamine HCl (Thiamine Hcl 100 Mg Tablet) 100 mg PO DAILY [facility] Last Admin: 01/21/23 08:31 Dose: 100 mg Allergies Allergies Allergy/AdvReac Type Severity Reaction Status Date / Time No Known Allergies Allergy Verified 12/29/22 11:53 Assessment & Plan Assessment & Plan (1) Alcohol use disorder, severe, dependence: Status: Acute Code(s): F10.20 - Alcohol dependence, uncomplicated Assessment and Plan: patient to discharge home and follow up with community supports Total time managing care of this patient today _40___ minutes.
== END 2023-01-21 13:28 | disposition home or self-care (01) ==
PROVIDERS: Physician Assistant; Physician Assistant Medical; Emergency Provider Emergency Medicine Emergency Medical Services; PCP Internal Medicine
DX: F10.20 Alcohol dependence, uncomplicated (principal); Y90.7 Blood alcohol level of 200-239 mg/100 ml; R74.01 Elevation of levels of liver transaminase levels; F41.9 Anxiety disorder, unspecified; Z79.899 Other long term (current) drug therapy; Z20.822 Contact with and (suspected) exposure to COVID-19
CPT/HCPCS: 36415; 80048; 80076; 80307; 81001; 83690; 83735; 85025; 87086; 87088; 87186; 87635; 93005; 97161; 99285

== ENCOUNTER 2023-01-27 | Outpatient (REF) | payer OTHER, SELFPAY ==
[2023-01-29 14:18] LABS: Amphetamine Screen Urine Not Detected (Not Detect); Barbiturates, Urine Not Detected (Not Detect); Benzodiazepines Screen Urine POSITIVE (Not Detect); Cannabinoid Screen Urine Not Detected (Not Detect); Cocaine Screen Urine Not Detected (Not Detect); Fentanyl, urine Not Detected (Not Detect); Opiate Screen Urine Not Detected (Not Detect); Phencyclidine Screen Urine Not Detected (Not Detect)
== END 2023-01-27 00:01 | disposition home or self-care (01) ==
LOC: HO.PHPLNP
PROVIDERS: Visit Provider Nurse Practitioner Psychiatric/Mental Health
DX: F10.20 Alcohol dependence, uncomplicated (principal)
CPT/HCPCS: 80307

== ENCOUNTER 2023-02-04 12:48 | Outpatient (REF) | payer OTHER, SELFPAY ==
--- NOTE | 2023-02-04 13:01 | ECG_ITS ---
Test Reason : R/O QTC PROLONGATION Blood Pressure : / mmHG Vent. Rate : 062 BPM Atrial Rate : 062 BPM P-R Int : 164 ms QRS Dur : 080 ms QT Int : 436 ms P-R-T Axes : 008 -22 -04 degrees QTc Int : 442 ms Normal sinus rhythm Normal ECG When compared with ECG of 21-JAN-2023 07:42, QT has shortened Referred By: Olivia Salgado Electronically Signed By:CLAUS BOSTON MD
== END 2023-02-04 12:49 | disposition home or self-care (01) ==
LOC: HO.LAB 12:48
PROVIDERS: PCP Internal Medicine; Visit Provider Clinical Nurse Specialist Psychiatric/Mental Health
DX: R94.31 Abnormal electrocardiogram [ECG] [EKG] (principal); F10.20 Alcohol dependence, uncomplicated; F33.1 Major depressive disorder, recurrent, moderate
CPT/HCPCS: 93005

== ENCOUNTER 2023-02-10 12:30 | Outpatient (RCR) | payer OTHER, SELFPAY ==
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
[2023-01-27 11:56] VITALS: BP 110/62; PULSE 68; TEMP 36.9
[2023-01-27 12:07] VITALS: BMI 29.2
--- NOTE | 2023-01-27 13:33 | PC.ADMIT ---
Patient is a 52 year old female with a long history of ETOH use disorder who reportedly went to the ER recently after using ETOH and having a panic attack. 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 She walks with a cane as a result and when actively drinking she needs a wheel chair as she is unable to ambulate. Patient reports she is doing well and reports her last drink was December. She reports she was drinking daily 4-5 cups of wine and 4-5 nips of vodka. She stated she has a sponsor and attends the [facility] twice a week. She denied any cravings. Taking Acamprosate as prescribed. Patient reportedly has a history of 12 detox admissions within the last 2 years. Patient reports she has not started taking Wellbutrin and spoke to Evy Cruz CNP PHP prescriber who is not going to continue this medication as patient will be starting Prozac. She also reports she has not been taking Mirtazapine. Evy Cruz CNP is aware. Patient is alert and oriented x4. Calm and cooperative. Presented with anxious mood and affect. Denied SI. Patient given a copy of her safety plan which includes plans on how she can reduce risk of using ETOH.
--- NOTE | 2023-01-28 15:40 | HO.PHP ---
Clients case was reviewed and opened today in treatment team.
--- NOTE | 2023-02-04 11:03 | P.PNPSP_ITS ---
Subjective Subjective Date of Service: 02/04/23 Reason For Visit: depression Medical Problems Affecting Mental Status: Yes Interim History: 52 yo woman with severe alcohol dependence and depression attending groups; reports sober since admission to [facility] on 01/26/23. pt tolerating prozac 10 mg daily. pt reluctant to increase prozac to 20 mg and did not start increase yet; pt concerned about esophageal varices from alcohol and wants to talk to her GI specialist. she expressed motivation to maintain sobriety. she reports the structure and support from [facility] is very helpful. Medication Compliance: Yes Side effects from medications: No Attending Groups: Yes Review of Systems Acute medical concerns: Yes alcohol induced neuropathy hx of cirrhosis LFTS elevated esophygeal varices EKG with prolonged QTC Medical Review of Systems: unchanged Review of Systems: denies new complaints no chest pain, no SOB Review of Systems Constitutional: Reports as per HPI Eyes: Reports as per HPI Reports as per HPI Cardiovascular: Reports as per HPI Comments: no chest pain, no SOB Respiratory: Reports as per HPI Gastrointestinal: Reports as per HPI Genitourinary: Reports as per HPI Musculoskeletal: Reports as per HPI Skin/Breast: Reports as per HPI Reports as per HPI Psychiatric: Reports as per HPI Comments: no SI or Hi Endocrine: Reports as per HPI Hematologic/Lymphatic: Reports as per HPI Allergic/Immunologic: Reports as per HPI Mental Status Exam Mental Status Exam Narrative: Well-developed, well-nourished. NAD. anxious, superficially bright affect. pressured speech but able to be interrupted and also able to listen at times; no grandiosity; Denies depression symptoms, does report some anxiety at times. Ambulates with cane. No abnormal movements, no tics or tremors. No perceptual disturbances observed. No intoxication symptoms observed. Patient Appearance: Unkempt Patient Orientation: Person, Place, Time and Situation Level of Consciousness: Appropriate and Alert Patient Behavior: Appropriate, Guarded, Cooperative and Good Eye Contact Mood Description: Happy (States that she is happy to be here ) Affect Description: Cheerful and Anxious Patient Cognition Impaired: No Ability to Follow Directions: Good Speech Pattern: Clear, Spontaneous Speech and Excessive Memory Description: Intact Hallucinations: None Delusions: Not Present Thought Process: Intact Thought Content: positive for Goal Oriented Abnormal Motor Activity Signs and Symptoms: Tremors Judgement: Fair Diagnostics Vital Signs (24Hr): BMI result Body Mass Index 29.2 Labs Labs: LFTS elevated AST 88 ALT 36 Alk phos 153 EKG EKG: reviewed EKG Comment: QTC 525 Assessment & Plan Assessment & Plan (1) Alcohol use disorder, severe, dependence: Status: Acute Code(s): F10.20 - Alcohol dependence, uncomplicated Assessment and Plan: Patient reports a long history severe alcohol use, many medical complications. Last drink 1 week ago. Family members had attempted to times during that week for Section 35, were unsuccessful. Patient denies any cravings today. Takes Campral 666 mg t.i.d.. Reports that she recently was prescribed Wellbutrin 150 mg daily. States she has not started this, concerns regarding alcohol use. Denies any history of seizures. Discussed medication in detail, including increased risk of seizures with medication, as well as frequent relapses. Discussed trying an SSRI 1st. She was agreeable to this. Discussed fluoxetine in detail, including risks, benefits, intended use for depression and anxiety symptoms. She is willing to try this medication at this time. She currently has a prescription for Librium. Her primary care provider provided her with a 10 day supply prescription. She states she is currently taking these to help with withdrawal symptoms. Denies any other substance use. Continues with neuropathy symptoms, although she states they are improving. Ambulating with cane. Had difficulty getting up out of chair after interview with this music writer. Gait is slow. No SI, feels safe. Denies any overt depression symptoms today, however states that she is good at hiding her feelings. She has begun working with outpatient psychiatric provider and therapist. Is currently attending recovery center in [place], several meetings weekly. Has begun working with a gentleman whom she describes as her sponsor. However, she states he is not involved in any type of recovery. Reports that she also has a motor coach tour operator, whom she needs to call. (2) MDD (major depressive disorder), recurrent episode, moderate: Status: Acute Code(s): F33.1 - Major depressive disorder, recurrent, moderate Plan 1. Continue with current [facility] plan of care. 2. Continue fluoxetine 10 mg daily. 3. EKG to recheck QTC last ekg on 01/21/23 4. Harm/risk reduction discussion. 5. Follow-up as per protocol. Patient educated on: diagnosis, medication risk/benefits, substance abuse and therapeutic strategies Informed Consent: understands and further education needed Reason for contiued partial hosp. stay Substantial Risk for: harm to self, inability to function, rapid decompensation and med/psych decompensation Certification I certify that partial hospital treatment is medically necessary due to the symptoms and problems resulting from the patient's mental illness and the failure to treat the patient at the partial hospital level of care would likely result in the patient requiring inpatient psychiatric care which could not be prevented at a less intensive level of care. Total time managing care of this patient today __30__ minutes. Discharge Plan Discharge Attending provider: Sivakumar Khan Medications: New fluoxetine 20 mg capsule 20 mg PO DAILY Qty: 30 0RF Discontinued bupropion HCl 150 mg tablet extended release 24 hr 150 mg PO QAM No Action cyanocobalamin (vitamin B-12) [Vitamin B-12] 500 mcg tablet 1 tab PO QAM nadolol 20 mg Tablet 20 mg PO QAM magnesium oxide 400 mg (241.3 mg magnesium) tablet 400 mg PO BID mirtazapine 7.5 mg tablet 7.5 mg PO BEDTIME Rx Instructions: Patient to start taking per Evy Turner CNP. thiamine HCl (vitamin B1) 100 mg tablet 100 mg PO QAM folic acid 1 mg tablet 1 mg PO QAM nitrofurantoin monohyd/m-cryst [Macrobid] 100 mg capsule 100 mg PO Q12H 5 Days Qty: 10 0RF Rx Instructions: must administer with a meal/food acamprosate 333 mg tablet,delayed release (DR/EC) 666 mg PO TID Qty: 180 0RF Patient Comments: Patient stated she restarted the medication. Last filled 04/23/22 #180
--- NOTE | 2023-02-08 13:52 | HO.PHP ---
[facility] staff reached out to [facility]'s OP therapist, Theresa, to inform her that [facility] has been actively engaging in groups and made her aware of the start and end date. PHP staff left a voice mail for Theresa. [facility] staff encouraged Theresa to contact her back if she has any further questions.
== END 2023-02-10 23:59 | disposition home or self-care (01) ==
LOC: HO.PHPA 12:30
PROVIDERS: Visit Provider Psychiatry & Neurology Psychiatry
DX: F33.1 Major depressive disorder, recurrent, moderate (principal); F10.20 Alcohol dependence, uncomplicated; Z79.899 Other long term (current) drug therapy
CPT/HCPCS: 90791; 90853

== ENCOUNTER → 2023-07-23 14:13 | Outpatient (BNVA) | payer MEDICAID, SELFPAY | PROVIDERS: PCP Internal Medicine; Visit Provider Nurse Practitioner Family ==

== ENCOUNTER 2023-08-05 15:59 | Outpatient (AMB) | payer MEDICAID, SELFPAY ==
--- NOTE | 2023-08-05 16:10 | MHC.AM.SUB ---
Intake Intake Visit Reasons: MAT Visit Allergies No Known Allergies Allergy (Verified 12/29/22 11:53) HPI MAT Visit HPI Details She presents via telehealth today due to ongoing transportation and mobility challenges She has not been taking the campral anymore, doesn't feel it works Is interested in detox after she gets her ankle re-examined, also interested in starting vivitrol injection Also expressing desire to go to [facility] Is planning to get her ankle x-rayed tomorrow Her goal at this time is to stop drinking alcohol I don't want to be like this She reports current use to be 4 nips and 4 small bottles of wine over the course of 24 hours daily. She is unsure if she has ever experienced a seizure related to withdrawal before She reports she is nauseated and vomiting almost every morning. [facility] Medical History Alcohol abuse Alcohol use disorder, severe, dependence Alcoholic ketoacidosis Alcoholism Anxiety Dehydration Depression Hypertension Hypertension Surgical History No pertinent past surgical history Family History Other No family history of coronary artery disease Social History Household Members: None Housing: House Do you presently have visiting nurse or other home services: No Alcohol intake: current Alcohol intake frequency: 3 or more drinks per day Alcohol type: hard liquor Patient Tobacco Use Status: Never used Tobacco Substance Use Type: Unknown Advance Directives Date on File: 05/18/22 service: No Current occupational status: employed [employer] Reports as per HPI GI Details: Reports nausea and vomiting in the morning Reports nausea and Reports vomiting Assessment & Plan Assessment & Plan (1) Alcohol use disorder, severe, dependence: Code(s): F10.20 - Alcohol dependence, uncomplicated Plan: -Risk reduction discussed- cautioned pt to decrease use very slowly to prevent complicated withdrawal -She is to get repeat xray and then wishes to follow up next week to have a more comprehensive discussion about detox -Follow up on Wednesday or Wednesday next week Telehealth Telehealth Location of provider rendering services: practice address Location of patient: address on file Patient Identification confirmed using: Name, : Yes Telehealth method: voice only Patient verbally consented to treatment: Yes Patient verbally consented to billing insurance company: Yes Patient informed of any privacy concerns related to visit: Yes Coding Level of Care Code Tele Est Pt Level 3 (34523) Diagnoses Alcohol use disorder, severe, dependence F10.20
== END 2023-08-05 16:13 | disposition home or self-care (01) ==
PROVIDERS: PCP Internal Medicine; Visit Provider Nurse Practitioner Family
DX: F10.20 Alcohol dependence, uncomplicated (principal)
CPT/HCPCS: 99213

== ENCOUNTER → 2023-08-05 15:59 | Outpatient (BNVA) | payer MEDICAID, SELFPAY | PROVIDERS: PCP Internal Medicine; Visit Provider Nurse Practitioner Family ==